=== PATIENT | male | born 1970 | race Caucasian/White ===

== ENCOUNTER 2021-03-29 14:16 | Outpatient (CLI) | payer BC, SELFPAY ==
--- NOTE | ~2021-03-29 | XR_ITS ---
EXAMINATION: XR toe 1st LT min 2V INDICATION: Left first toe pain TECHNIQUE: Four views of the left first toe are obtained. COMPARISON: None available FINDINGS: There is no fracture. There is moderate to severe osteoarthritis at the first metatarsophal angeal joint. The soft tissues are unremarkable. IMPRESSION: 1. Osteoarthritis of the first metatarsophalangeal joint without acute osseous abnormality. Reviewed, dictated and finalized at location F. END CAREGIVER
== END 2021-03-29 14:17 | disposition home or self-care (01) ==
PROVIDERS: PCP Family Medicine; Visit Provider Family Medicine
DX: M19.072 Primary osteoarthritis, left ankle and foot (principal)
CPT/HCPCS: 73660

== ENCOUNTER 2021-07-23 08:24 | Emergency (ER) | payer BC, SELFPAY ==
--- NOTE | 2021-07-23 08:26 | ED.URI ---
HPI - URI/Sore Throat General Chief Complaint: Upper Respiratory Infection Stated Complaint: eyes burn nose itchy fatigue sore throat Time Seen by Provider: 07/23/21 08:26 Source: patient and RN notes reviewed History of Present Illness HPI Narrative: Patient is a 51-year-old male who presents the urgent care with complaints of burning eyes, runny nose, postnasal drainage for 1 week. Patient states that for a month he has had some fatigue. Patient does not have a primary care doctor and has not seen anyone for his chronic fatigue. Patient states that he used to take allergy shots for chronic allergies however has not been on them for some time. Patient has also not taken anything [id number] for his current symptoms. Denies of any fever, nausea, vomiting. Denies of any known exposures to illness. No other acute complaints. No acute distress noted. Patient aware of the plan of care. Some parts of this dictation were generated by voice recognition software and may contain typographical and/or grammatical inaccuracies. Related Data Home Medications Medication Instructions Recorded Confirmed atorvastatin 10 mg PO DAILY 07/23/21 07/23/21 bupropion HCl 150 mg PO BID 07/23/21 07/23/21 Allergies Allergy/AdvReac Type Severity Reaction Status Date / Time No Known Allergies Allergy Verified 07/23/21 08:37 Review of Systems Review of Systems: CONSTITUTIONAL: Denies fever, chills, or sweats. EYES: Denies visual changes, redness, or discharge. Reports of bilateral eyes burning ENT: Reports of rhinorrhea, postnasal drainage with mild sore throat CARDIOVASCULAR: Denies chest pain, palpitations, or edema. RESPIRATORY: Denies cough or dyspnea. GASTROINTESTINAL: Denies abdominal pain, nausea, vomiting, or diarrhea. GENITOURINARY: Denies dysuria or hematuria. SKIN: Denies rash or itching. MUSCULOSKELETAL: Denies back pain, joint pain, or myalgia. NEUROLOGIC: Denies headache, numbness, or weakness. All other systems reviewed are negative, except as documented in HPI. PMFSH Comments At the time of my signature, I reviewed and agree with the nursing past medical, surgical, social, and family history. There is no relevant family history pertinent to the patient complaint. Exam Narrative: GENERAL: This is a well-nourished, well-developed patient, in no apparent distress. HEAD: normocephalic, atraumatic. EYES: PERRL. Sclera clear/white. Vision is grossly intact. EARS: External ears normal, auditory canals clear and without drainage, TMs normal without perforation. Hearing grossly intact. NOSE: External nose normal with no obvious nasal discharge, mild bilateral erythemic nares with clear to yellow rhinorrhea THROAT: Mucous membranes moist, posterior pharynx clear. Moderate postnasal drainage NECK: Neck supple, non-tender without lymphadenopathy CARDIOVASCULAR: Regular rate and rhythm without murmurs, gallops, or rubs. RESPIRATORY: Clear to auscultation. Breath sounds equal bilaterally. No wheezes, rales, or rhonchi. SKIN: warm, intact with no suspicious lesions or rash, good texture and turgor. NEURO: awake, alert, and oriented to person, place and time. There were no obvious focal neurologic abnormalities. EXTREMITIES: No clubbing, cyanosis, or edema. Course Course Level of Care: Express Care Visit Vital Signs Vital signs: Vital Signs Temperature 98.3 F 07/23/21 08:34 Pulse Rate 61 07/23/21 08:34 Respiratory Rate 16 07/23/21 08:34 Blood Pressure 141/87 H 07/23/21 08:34 Pulse Oximetry 100 07/23/21 08:34 Temperature 98.3 F 07/23/21 08:34 Pulse Rate 61 07/23/21 08:34 Respiratory Rate 16 07/23/21 08:34 Blood Pressure 141/87 H 07/23/21 08:34 Pulse Oximetry 100 07/23/21 08:34 Reviewed-patient is informed that they may have pre-hypertension or hypertension based on a blood pressure reading in the department. I recommend the patient call the primary care provider listed on their discharge instructio
[2021-07-23 08:34] VITALS: BP 141/87; PULSE 61; RESP 16; TEMP 36.8; O2SAT 100
== END 2021-07-23 08:58 | disposition home or self-care (01) ==
PROVIDERS: Emergency Provider Nurse Practitioner Family; PCP Family Medicine
DX: J32.9 Chronic sinusitis, unspecified (principal); J30.89 Other allergic rhinitis; E78.00 Pure hypercholesterolemia, unspecified; F32.A Depression, unspecified
CPT/HCPCS: 99213; G0463

== ENCOUNTER → 2022-02-25 10:43 | Outpatient (CLI) | payer BC, SELFPAY ==
--- NOTE | ~2022-02-25 | XR_ITS ---
XR foot LT min 3V DATE: 02/25/2022 11:18 INDICATION: Right foot pain TECHNIQUE: 4 views COMPARISON: None FINDINGS: Distal Achilles tendon calcification and mild posterior calcaneal enthesopathy. Prominent osteoarthritis at the first metatarsophalangeal joint. Os tibiale externum, normal variant. No fracture, dislocation, periosteal reaction or bone destruction is detected. IMPRESSION: Prominent osteoarthritis at first metatarsophalangeal joint Mild posterior plantar calcaneal enthesopathy and distal Achilles tendon calcification Reviewed, dictated and finalized at location B. TIONAL TRAINER IMPRESSION: Prominent osteoarthritis at first metatarsophalangeal joint Mild posterior plantar calcaneal enthesopathy and distal Achilles tendon calcif ication
--- NOTE | ~2022-02-25 | XR_ITS ---
XR finger 3rd LT min 2V DATE: 02/25/2022 11:18 INDICATION: Third digit pain TECHNIQUE: 4 views COMPARISON: None FINDINGS: Chronic smooth bony ossicles are noted at the lateral aspect of the head of the third metac arpal bone and lateral margin of the third metacarpophalangeal joint. No recent fracture, dislocation , periosteal reaction or bone destruction. IMPRESSION: Chronic bony ossicles and lateral aspect of the third metacarpal head and lateral margin of third metacarpophalangeal joint Reviewed, dictated and finalized at location B. OR CHAPERONE IMPRESSION: Chronic bony ossicles and lateral aspect of the third metacarpal he ad and lateral margin of third metacarpophalangeal joint
--- NOTE | ~2022-02-25 | XR_ITS ---
XR foot RT min 3V DATE: 02/25/2022 11:18 INDICATION: Right foot pain TECHNIQUE: 4 views COMPARISON: None FINDINGS: Mild tibiotalar osteoarthritis. Mild posterior calcaneal enthesopathy and distal Achilles tendon calcification. There is moderate ost eophyte is at the first metatarsophalangeal joint including joint space narrowing and mild to moderat e periarticular spurring. Os tibiale externum, normal variant. No fracture or dislocation, periosteal reaction or bone destruction is detected. IMPRESSION: Osteoarthritis at tibiotalar and first metatarsophalangeal joints Mild posterior calcaneal enthesopathy and distal Achilles tendon calcification Reviewed, dictated and finalized at location B. DESIGNER
--- NOTE | ~2022-02-25 | XR_ITS ---
XR knee RT 3V DATE: 02/25/2022 11:18 INDICATION: Right knee pain TECHNIQUE: AP, lateral, sunrise views of right knee COMPARISON: None FINDINGS: Mild superior pole patellar enthesopathy at quadriceps tendon insertion. No fracture or dislocation, joint effusion or joint space narrowing of the right knee. No radiopaque intra-articular loose body or chondrocalcinosis. IMPRESSION: No significant abnormality Reviewed, dictated and finalized at location B. OTYPE MACHINIST IMPRESSION: No significant abnormality
--- NOTE | ~2022-02-25 | XR_ITS ---
XR shoulder RT min 2V DATE: 02/25/2022 11:18 INDICATION: Right shoulder pain TECHNIQUE: 4 views COMPARISON: None FINDINGS: Normal alignment at the acromioclavicular and glenohumeral joints. No fracture or dislocati on, periosteal reaction or bone destruction or significant abnormal soft tissue calcification of the right shoulder is detected. IMPRESSION: No significant abnormality Reviewed, dictated and finalized at location B. W HAT WASHER OPERATOR IMPRESSION: No significant abnormality
== END ==
PROVIDERS: PCP Nurse Practitioner; Visit Provider Nurse Practitioner
DX: M25.561 Pain in right knee (principal); M79.645 Pain in left finger(s); M25.511 Pain in right shoulder; M19.071 Primary osteoarthritis, right ankle and foot; M77.31 Calcaneal spur, right foot; M19.072 Primary osteoarthritis, left ankle and foot; M77.32 Calcaneal spur, left foot
CPT/HCPCS: 73030; 73140; 73562; 73630

== ENCOUNTER 2022-08-08 08:45 | Emergency (ER) | payer BC, SELFPAY ==
--- NOTE | ~2022-08-08 | XR_ITS ---
EXAMINATION: XR hand LT min 3V DATE: 08/08/2022 09:16 INDICATION: Laceration to the left fourth and fifth digits TECHNIQUE: Posteroanterior, oblique and lateral views of the left hand were obtained. COMPARISON: None. FINDINGS: There is a deep laceration at the dorsal aspect of the tip of the left fourth digit. The lucency in t he soft tissue extends along an associated open fracture across the distal margin of the tuft of the distal phalanx with approximately 2.5 mm separation of the fracture plane. Bone alignment is otherwis e normal. No other fractures identified. Joint spaces are relatively preserved. IMPRESSION: 1. Laceration with associated mildly displaced open/compound fracture across the distal margin of the tuft of the left fourth distal phalanx. Reviewed, dictated and finalized at location A. IMPRESSION: 1. Laceration with associated mildly displaced open/compound fracture across th e distal margin of the tuft of the left fourth distal phalanx.
[2022-08-08 09:00] VITALS: BP 173/98; PULSE 55; RESP 20; TEMP 36.6; O2SAT 100
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
[2022-08-08] MEDS: TETANUS,DIPHTHERIA,AC PERTUSSIS ADULT (0.5 ML) BOOSTRIX IM (09:30)
[2022-08-08] MEDS: LIDOCAINE HCL 1% LOCAL INJ 2 ML AMPUL 10 ML INFILTRATE (09:34)
== END 2022-08-08 10:37 | disposition home or self-care (01) ==
PROVIDERS: Emergency Provider Nurse Practitioner Family; PCP Family Medicine
DX: S62.615B Displaced fracture of proximal phalanx of left ring finger, initial encounter for open fracture (principal); W23.0XXA Caught, crushed, jammed, or pinched between moving objects, initial encounter; S61.217A Laceration without foreign body of left little finger without damage to nail, initial encounter; Z23 Encounter for immunization; Z87.891 Personal history of nicotine dependence; E78.2 Mixed hyperlipidemia; Z79.82 Long term (current) use of aspirin
CPT/HCPCS: 12001; 29130; 73130; 90471; 90715; 99214; A9270; G0463

== ENCOUNTER → 2023-02-03 15:23 | Outpatient (CLI) | payer BC, SELFPAY ==
--- NOTE | ~2023-02-03 | XR_ITS ---
Right Shoulder Technique: AP and axillary views were obtained. Clinical History: Pain Findings: No fracture or dislocation is seen. Osseous alignment is anatomic. There is minimal degener ative change of the glenohumeral and AC joints. Soft tissues are unremarkable. Impression: Minimal degenerative changes, as above. Reviewed, dictated and finalized at [facility]. RUMENT STERILIZER Impression: Minimal degenerative changes, as above.
--- NOTE | ~2023-02-03 | XR_ITS ---
Cervical Spine: AP, lateral, open-mouth views Clinical History: Pain Findings: The normal lordotic curve is maintained. No fracture or subluxation seen. There are mild de generative disc changes, and mild facet joint degenerative changes in the cervical spine. Pre-vertebr al soft tissues are unremarkable. Impression: Mild degenerative spondylosis. Reviewed, dictated and finalized at [facility]. NO CASHIER MANAGER Impression: Mild degenerative spondylosis.
== END ==
PROVIDERS: PCP Family Medicine; Visit Provider Nurse Practitioner
DX: M25.511 Pain in right shoulder (principal); M47.892 Other spondylosis, cervical region
CPT/HCPCS: 72040; 73030

== ENCOUNTER 2023-02-13 13:59 | Emergency (ER) | payer BC, SELFPAY ==
[2023-02-13 14:25] VITALS: BP 140/87; PULSE 68; RESP 18; TEMP 36.5; O2SAT 100
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
[2023-02-13 16:58] VITALS: BP 126/78; PULSE 68; RESP 16; TEMP 36.8; O2SAT 100
== END 2023-02-13 17:01 | disposition home or self-care (01) ==
LOC: ANHED 16:35
PROVIDERS: Emergency Provider Physician Assistant; PCP Family Medicine
DX: S81.811A Laceration without foreign body, right lower leg, initial encounter (principal); E78.2 Mixed hyperlipidemia; E66.3 Overweight; Z68.27 Body mass index [BMI] 27.0-27.9, adult; F43.10 Post-traumatic stress disorder, unspecified; Z87.891 Personal history of nicotine dependence; W22.8XXA Striking against or struck by other objects, initial encounter
CPT/HCPCS: 12042; 99282

== ENCOUNTER 2023-03-04 14:45 | Outpatient (RCR) | payer BC, SELFPAY ==
--- NOTE | 2023-02-11 14:33 | PTOPEVAL1 ---
Assessment and note entered by Joseph Dsouza, PT Evaluation Information Assessment Status Evaluation Diagnosis Cervicalgia, Shoulder Pain Onset 01/20/23 Subjective Information Reports that he woke up with pain three weeks ago for unknown reasons. Pain is in R side of neck, into R ribs, and down R arm into elbow. He is having the most trouble when sleeping or when she stops moving. He is active with running and working out but he has not been lifting. Movement in his neck is sporadic. Feels that a lot of his issues may be compressive related to muscle lifting activity. Reported Pain Level Pain Score 6: Self Report Assessment PT Clinical Summary Patient presents with sings and symptoms consistent with cervical and shoulder muscular strain. Minor weakness noted in R shoulder and ROM deficits globally in cervical spine. Had a very positive reaction to initial treatment and will benefit from skilled therapy moving forward to improve gross cervical mobility and postural reinforcement. Plan of Care Interventions Electrical Stimulation,Hot Pack/Cold Pack,Manual Therapy,Neuro Re-education,Therapeutic Activities, Therapeutic Exercise PT Services Indicated Yes Treatment Frequency and 2x/week for 4 weeks Duration These treatments will address the objective and functional deficits as defined above. The patient will be advanced safely and appropriately in order for the patient to progress towards his/her prior level of function. Additional exercises will be introduced and as well as a comprehensive home exercise program upon discharge, if needed, ?to ensure carryover of functional gains achieved in the clinic. This treatment plan has been reviewed and agreement upon by the patient.
--- NOTE | 2023-02-11 16:10 | OPREHPOC ---
Outpatient Therapy Plan of Care This is a Multidisciplinary Plan of Care that may contain components documented by all disciplines (PT, OT, and ST.) PT Problem 1 PT Problem #1 Knowledge Deficit PT Goal 1 Goal Independent with HEP Target Visit 4 PT Problem 2 PT Problem #2 Pain PT Goal 1 Goal Report 75% improvement in pain levels and quality of sleep Target Visit 8 PT Problem 3 PT Problem #3 Impaired Range of Motion PT Goal 1 Goal Improve rashad cervical rotation ROM to 70+ degrees to improve facet glide and indicate reduced muscle pull PT Problem 4 PT Problem #4 Impaired Strength PT Goal 1 Goal Improve R shoulder flexion strength to 5/5 to improve shoulder stability and reduce strain on R upper trapezius with lifting activity
--- NOTE | 2023-03-06 08:01 | PCPTNOTE ---
Patient canceled this date per request.
--- NOTE | 2023-03-07 09:47 | PCPTNOTE ---
Patient did not show up for scheduled appointment this date.
--- NOTE | 2023-03-11 12:59 | PTOPDC ---
Assessment and note entered by Joseph Dsouza, PT Evaluation Information Assessment Status Discharge - Pt Not Present Diagnosis Cervicalgia, Shoulder Pain Onset 01/20/23 Subjective Information Reports that he woke up with pain three weeks ago for unknown reasons. Pain is in R side of neck, into R ribs, and down R arm into elbow. He is having the most trouble when sleeping or when she stops moving. He is active with running and working out but he has not been lifting. Movement in his neck is sporadic. Feels that a lot of his issues may be compressive related to muscle lifting activity. Assessment PT Clinical Summary Patient called and left voicemail to cancel all standing appointments. Call was returned on with no response from a patient. Patient therapy will be discontinued at this time and patient is discharged. Please see last treatment note for discharge status. Plan of Care PT Services Indicated D/C to [facility] per patient request
== END 2023-03-11 13:20 | disposition home or self-care (01) ==
LOC: ANHGOSHPT 14:45
PROVIDERS: PCP Family Medicine; Visit Provider Nurse Practitioner
DX: M54.2 Cervicalgia (principal); M25.519 Pain in unspecified shoulder
CPT/HCPCS: 97014; 97110; 97112; 97140; 97161; 97530; 99199; G0283

== ENCOUNTER 2023-07-17 14:49 | Outpatient (CLI) | payer BC, SELFPAY ==
--- NOTE | ~2023-07-17 | XR_ITS ---
EXAM: XR shoulder LT min 2V, XR humerus LT DATE: 07/17/2023 15:13 HISTORY: M25.512 - Pain in left shoulder . COMPARISON: None available. FINDINGS: Normal mineralization. No fracture or dislocation. No lytic or blastic lesion. 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 No erosion or periosteal change. Soft tissues wi thin normal limits. IMPRESSION: No acute osseous finding in the left shoulder or left humerus. Reviewed, dictated and finalized at location K. IMPRESSION: No acute osseous finding in the left shoulder or left humerus.
== END 2023-07-17 14:50 ==
PROVIDERS: PCP Nurse Practitioner Family; Visit Provider Family Medicine
DX: S46.212A Strain of muscle, fascia and tendon of other parts of biceps, left arm, initial encounter (principal); M25.512 Pain in left shoulder
CPT/HCPCS: 73030; 73060

== ENCOUNTER 2023-10-28 13:42 | Outpatient (CLI) | payer BC, SELFPAY ==
--- NOTE | ~2023-10-28 | XR_ITS ---
XR hand RT min 3V Ordering provider: Pinky Zhu DO History: . no recent injury bilateral hand pain . Comparison: None. FINDINGS: BONES: No acute fracture or dislocation. JOINT SPACES: Normal. SOFT TISSUES: Normal. IMPRESSION: No acute osseous abnormality right hand. Reviewed, dictated and finalized at location A.
--- NOTE | ~2023-10-28 | XR_ITS ---
XR hand LT min 3V Ordering provider: Pinky Zhu DO History: . no recent injury bilateral hand pain . Comparison: August 08, 2022 FINDINGS: BONES: Bony fragment seen near to the tip of the distal phalanx of the fourth finger which is nonfuse d. JOINT SPACES: Well maintained. SOFT TISSUES: Unremarkable. IMPRESSION: Nonfused bony fragment near to the tip of the distal phalanx of the fourth finger. Reviewed, dictated and finalized at location A. IMPRESSION: Nonfused bony fragment near to the tip of the distal phalanx of the fourth fing er.
== END 2023-10-28 13:43 ==
PROVIDERS: PCP Family Medicine; Visit Provider Family Medicine
DX: M79.641 Pain in right hand (principal); M79.642 Pain in left hand
CPT/HCPCS: 73130

== ENCOUNTER 2023-11-05 08:44 | Outpatient (CLI) | payer BC, SELFPAY ==
--- NOTE | ~2023-11-05 | CT_ITS ---
Non-contrast Head CT History: Headache Technique: Axial non-contrast imaging of the brain was performed. Dose reduction technique was used on this scan by utilizing automated exposure control and iterative reconstruction technique. The dose -length product (DLP) was 645.69 mGy-cm. Findings: There is no evidence of intracranial hemorrhage, mass lesion, or acute infarct. Brain par enchyma appears normal. The ventricles and subarachnoid spaces are normal in size. The calvarium ap pears normal. The visualized paranasal sinuses and mastoid air cells are clear. Impression: No significant abnormality seen. Reviewed, dictated and finalized at location . Impression: No significant abnormality seen.
== END 2023-11-05 08:45 ==
PROVIDERS: PCP Family Medicine; Visit Provider Nurse Practitioner
DX: G43.909 Migraine, unspecified, not intractable, without status migrainosus (principal)
CPT/HCPCS: 70450

== ENCOUNTER 2023-11-25 01:51 | Day surgery (SDC) | payer BC, SELFPAY ==
[2023-11-17 09:55] VITALS: BMI 26.7
[2023-11-25 12:56] VITALS: BP 135/97; PULSE 83; RESP 18; TEMP 36.1; O2SAT 96
[2023-11-25] MEDS: LACTATED RINGERS 1,000 ML 150 ML IV CONT (12:58)
--- NOTE | 2023-11-25 13:14 | WPDANESEPPF ---
Anes - Initial Pre Proc Eval Procedure: Operation Date: 11/25/23 15:30 Proposed Procedures p Colonoscopy - Gurdeep Sanchez MD Date/Time: 11/25/23 13:14 Surgeon: Gurdeep Sanchez MD Pre Op Diagnosis: Melena Patient Data Age: 53 Gender: M Height: 1.65 m Weight: 72.6 kg Last Vital Signs Temp 97.0 F L 11/25/23 12:56 Pulse 83 11/25/23 12:56 Resp 18 11/25/23 12:56 BP 135/97 H 11/25/23 12:56 Pulse Ox 96 11/25/23 12:56 O2 Del Method Room Air 11/25/23 12:56 Allergies Allergy/AdvReac Type Severity Reaction Status Date / Time No Known Allergies Allergy Verified 11/25/23 12:53 Home Medications Medication Instructions Recorded Confirmed Type meloxicam 15 mg tablet 15 mg PO DAILY 11/15/22 11/25/23 History sildenafil 100 mg tablet 100 mg PO DAILY PRN sexual 02/04/23 11/25/23 Rx activity #60 tabs atorvastatin 10 mg tablet See Rx Instructions .Route 06/10/23 11/25/23 Rx .COMPLEX #90 tabs bupropion HCl 150 mg 24 hr tablet, See Rx Instructions .Route 07/07/23 11/25/23 Rx extended release .COMPLEX #90 tabs Patient hx anesthesia problems: none Family hx anesthesia problems: none Results Review: All pre-operative results and documents have been reviewed as part of the pre-operative evaluation. [facility] Past Medical History Medical History Biceps tendonitis on right Depression Elevated blood pressure reading in office without diagnosis of hypertension Elevated liver enzymes Foot pain, bilateral Lesion of penis meterman use of drug Mixed hyperlipidemia Overweight Pain of left great toe Right knee pain Right shoulder pain Rotator cuff tendonitis Screening for prostate cancer Family History Family History Father Diabetes mellitus Hypertension Family history of elevated blood lipids Acute myocardial infarction, Onset Age: 56 Family history of coronary artery disease Mother Hypertension Family history of elevated blood lipids Grandparent Acute myocardial infarction Family history of coronary artery disease Social History Social History Smoking packs per day: 0.5 Smoking cigarettes per day: 10.0 Years smoked: 20 Smoking pack-years: 10.00 Smoking status: Former smoker Tobacco type: cigarettes Alcohol intake: current Drinks per week: 1 Alcohol use details: 1 drink per week pt. decreased intake. Substance use: current Substance use type: marijuana Other substance usage details: medical card for PTSD Lack of Transportation: No Lack of Food: Never True Current Housing: I Have Housing Concerned About Future Housing: No Difficulty Paying Gas/Electric Bills: No Difficulty Paying for Meds: No Currently Unemployed: No Education: High School Diploma/GED Difficulty w/ Childcare or Family Care: No Spiritual care concerns: No Anes - Eval Final PreProcedure Day of Procedure 11/25/23 13:14 Patient weight: normal Heart: regular rate and rhythm Lungs: clear to auscultation Airway: Mallampati scale class II Neurological: alert and oriented Last oral intake: >/= 8 hours ASA classification: II Emergent: no Anesthetic plan: proceed Anesthesia type and monitoring: general GIVS and standard monitoring Results Review: All pre-operative results and documents have been reviewed as part of the pre-operative evaluation. Informed Consent: The patient's anesthetic plan and its attendant risks and benefits were discussed with the patient/family/POA. Questions were solicited and answers provided to the satisfaction of the patient/family/POA.
--- NOTE | 2023-11-25 13:34 | PM.HPGS ---
History of Present Illness History of Present Illness Consent: Risks, benefits, and alternatives have been discussed and questions answered. Patient agrees to proceed with procedure. Chief complaint: colon screen Narrative: Joaquin Borrero is a 53 year old male here for first screening colonoscopy Review of Systems Review of Systems: All systems reviewed & are unremarkable except as noted in HPI and below [facility] Past Medical History Medical History (Updated 11/25/23 @ 13:38 by Gurdeep Sanchez MD) Biceps tendonitis on right Colon cancer screening Depression Elevated blood pressure reading in office without diagnosis of hypertension Elevated liver enzymes Foot pain, bilateral Lesion of penis [employer] of [employer] use of drug Mixed hyperlipidemia Overweight Pain of left great toe Right knee pain Right shoulder pain Rotator cuff tendonitis Screening for prostate cancer Family History Family History Father Diabetes mellitus Hypertension Family history of elevated blood lipids Acute myocardial infarction, Onset Age: 56 Family history of coronary artery disease Mother Hypertension Family history of elevated blood lipids Grandparent Acute myocardial infarction Family history of coronary artery disease Social History Social History Smoking packs per day: 0.5 Smoking cigarettes per day: 10.0 Years smoked: 20 Smoking pack-years: 10.00 Smoking status: Former smoker Tobacco type: cigarettes Alcohol intake: current Drinks per week: 1 Alcohol use details: 1 drink per week pt. decreased intake. Substance use: current Substance use type: marijuana Other substance usage details: medical card for PTSD Lack of Transportation: No Lack of Food: Never True Current Housing: I Have Housing Concerned About Future Housing: No Difficulty Paying Gas/Electric Bills: No Difficulty Paying for Meds: No Currently Unemployed: No Education: High School Diploma/GED Difficulty w/ Childcare or Family Care: No Spiritual care concerns: No Meds Home Medications and Allergies Home Medications Medication Instructions Recorded Confirmed Type meloxicam 15 mg tablet 15 mg PO DAILY 11/15/22 11/25/23 History sildenafil 100 mg tablet 100 mg PO DAILY PRN sexual 02/04/23 11/25/23 Rx activity #60 tabs atorvastatin 10 mg tablet See Rx Instructions .Route 06/10/23 11/25/23 Rx .COMPLEX #90 tabs bupropion HCl 150 mg 24 hr tablet, See Rx Instructions .Route 07/07/23 11/25/23 Rx extended release .COMPLEX #90 tabs Allergies Allergy/AdvReac Type Severity Reaction Status Date / Time No Known Allergies Allergy Verified 11/25/23 12:53 Vital Signs Vital Signs - 24 hr 11/25/23 12:56 Temperature 97.0 F L Pulse Rate 83 Respiratory Rate 18 Blood Pressure 135/97 H Pulse Oximetry 96 Oxygen Delivery Room Air Exam Const: General: comfortable and no acute distress HENMT: Face/Nose/Sinus: Normal nares present Eyes: General: appearance normal, both eyes and all related structures Neck: Neck: no JVD Resp: Auscultation: clear to auscultation bilaterally Cardio: Rate: regular rate Rhythm: regular rhythm GI: Inspection: non-distended GI Palp: Yes Soft to palpation Skin: General skin exam: normal color Neuro: General: gait normal Speech: normal speech Extrem: General: normal to inspection Psych: Mental Status: mental status grossly normal Assessment and Plan Assessment and plan (1) Colon cancer screening: Code(s): Z12.11 - Encounter for screening for malignant neoplasm of colon Status: Acute Assessment and Plan: colonoscopy
[2023-11-25 13:53] VITALS: BP 104/66; PULSE 76; RESP 20; O2SAT 95
[2023-11-25 14:03] VITALS: BP 111/77; PULSE 68; RESP 17; O2SAT 94
[2023-11-25 14:13] VITALS: BP 114/79; PULSE 69; RESP 22; O2SAT 99
== END 2023-11-25 14:31 | disposition home or self-care (01) ==
PROVIDERS: PCP Family Medicine; Visit Provider Internal Medicine Gastroenterology
PROC: 0DJD8ZZ Inspection of Lower Intestinal Tract, Via Natural or Artificial Opening Endoscopic (ICD-10-PCS; CPT 45378; principal; 2023-11-25 15:30)
DX: Z12.11 Encounter for screening for malignant neoplasm of colon (principal); K64.8 Other hemorrhoids; K57.30 Diverticulosis of large intestine without perforation or abscess without bleeding; E78.2 Mixed hyperlipidemia; Z87.891 Personal history of nicotine dependence
CPT/HCPCS: 45378; J2001; J2704; J7120

== ENCOUNTER 2024-02-12 13:35 | Outpatient (CLI) | payer BC, SELFPAY ==
--- NOTE | ~2024-02-12 | XR_ITS ---
Right ankle Technique: AP, oblique, and lateral views were obtained. Clinical History: Pain Findings: No acute fracture or dislocation is seen. Osseous alignment is anatomic. Ankle mortise and other visualized joint spaces are preserved. Soft tissues are otherwise unremarkable. Impression: Unremarkable right ankle. Reviewed, dictated and finalized at location . TMENT COUNSELOR Impression: Unremarkable right ankle.
--- NOTE | ~2024-02-12 | XR_ITS ---
AP and lateral views of the right tibia/fibula Clinical History: Pain Findings: No acute fracture or dislocation is seen. Osseous alignment is anatomic. Joint spaces are p reserved without significant erosive or degenerative change. Soft tissues are unremarkable. Impression: Unremarkable right tib-fib radiographs. Reviewed, dictated and finalized at [facility]. T CLERK Impression: Unremarkable right tib-fib radiographs.
--- NOTE | ~2024-02-12 | XR_ITS ---
Right Knee Technique: AP, lateral, and sunrise views were obtained. Clinical History: Pain Findings: No fracture or dislocation is seen. Osseous alignment is anatomic. Joint spaces are preserv ed without degenerative or erosive change. Soft tissues are unremarkable. No joint effusion is seen. Impression: Unremarkable right knee radiographs. Reviewed, dictated and finalized at location . CLEANER Impression: Unremarkable right knee radiographs.
--- NOTE | ~2024-02-12 | US_ITS ---
EXAMINATION: US venous doppler LE RT DATE: 02/12/2024 14:05 INDICATION: One week of right lower limb pain and tingling TECHNIQUE: Grayscale ultrasound images without and with compression and Doppler ultrasound images of the right lower extremity veins were obtained. COMPARISON: None. FINDINGS: The visualized portions of right common femoral vein, profunda (deep) femoral vein, femoral vein, pop liteal vein, peroneal trunk, posterior tibial veins, peroneal veins, gastrocnemius vein and greater s aphenous vein outflow are patent. Incidentally noted is a central filling defect in significant decre ased flow in the distal right popliteal artery suspicious for thrombus. There is decreased vascular f low on color Doppler in the more distal right peroneal, dorsalis pedis and posterior tibial arteries, the latter with very slow aphasic flow. IMPRESSION: 1. No deep venous thrombosis in the right lower limb. 2. Likely thrombosis in the distal right popliteal artery with decreased arterial flow in the more di stal arteries of the right lower leg. Dr. Mabry discussed these findings with Dr. Zhu at 2:25 PM. Reviewed, dictated and finalized at location B. MATIC OUTSOLE CUTTER IMPRESSION: 1. No deep venous thrombosis in the right lower limb. 2. Likely thrombosis in the distal right popliteal artery with decreased arteri al flow in the more distal arteries of the right lower leg. Dr. Mabry discus sed these findings with Dr. Zhu at 2:25 PM.
== END 2024-02-12 13:36 | disposition home or self-care (01) ==
PROVIDERS: PCP Family Medicine; Visit Provider Family Medicine
DX: M79.89 Other specified soft tissue disorders (principal)
CPT/HCPCS: 73564; 73590; 73610; 93971

== ENCOUNTER 2024-03-29 08:17 | Emergency (ER) | payer BC, OTHER, SELFPAY ==
[2024-03-29 08:45] VITALS: BP 165/110; PULSE 60; RESP 16; TEMP 36.9; O2SAT 100
--- NOTE | 2024-03-29 19:43 | ED.EXTPRO ---
HPI - Extremity Problem General Chief complaint: Extremity Problem,Nontraumatic Stated complaint: Right Leg Pain Time Seen by Provider: 03/29/24 09:03 Source: patient and RN notes reviewed Mode of arrival: ambulatory Limitations: no limitations History of Present Illness HPI Narrative: Patient presents today complaining of pain to the right leg that starts in the buttock and extends to the calf, concerned for DVT. Symptoms began this morning. He currently rates his pain 7/10 with increased pain with walking or sitting. Patient was diagnosed with a popliteal thrombosis last month and had surgery at [facility] and was subsequently placed on Eliquis. He states he ran out of his Eliquis 4 days ago and has been in contact with his PCP for refill but has not taken any since he ran out. He has tried lidocaine patch, aTens unit, and massage gun for his pain without relief. Patient is requesting that we call his PCP to see with a would like him do for evaluation today. Related Data Home Medications ?Medication ?Instructions ?Recorded ?Confirmed ?Last Taken ?Type celecoxib 400 mg capsule (Celebrex) 400 mg PO DAILY 03/29/24 03/29/24 Unknown History Allergies Allergy/AdvReac Type Severity Reaction Status Date / Time No Known Allergies Allergy Verified 03/29/24 08:37 Review of Systems Review of Systems: CONSTITUTIONAL: Denies body aches, fever, chills, or sweats. EYES: Denies visual changes, redness, or discharge. ENT: Denies rhinorrhea, congestion, sore throat, or otalgia. CARDIOVASCULAR: Denies chest pain, palpitations, or edema. RESPIRATORY: Denies cough or dyspnea. GASTROINTESTINAL: Denies abdominal pain, nausea, vomiting, or diarrhea. GENITOURINARY: Denies dysuria or hematuria. SKIN: Denies rash, itching, or wounds. MUSCULOSKELETAL: Right leg pain NEUROLOGIC: Denies headache, numbness, tingling, or weakness. PSYCH: Denies depression or anxiety. [facility] Past Medical History Medical History Colon cancer screening Rotator cuff tendonitis Biceps tendonitis on right Right shoulder pain Right knee pain Foot pain, bilateral Elevated blood pressure reading in office without diagnosis of hypertension Screening for prostate cancer Pain of left great toe Depression [facility] use of drug Lesion of penis Elevated liver enzymes Mixed hyperlipidemia Overweight Family History Family History Father Diabetes mellitus Hypertension Family history of elevated blood lipids Acute myocardial infarction, Onset Age: 56 Family history of coronary artery disease Mother Hypertension Family history of elevated blood lipids Grandparent Acute myocardial infarction Family history of coronary artery disease Social History Social History Smoking packs per day: 0.5 Smoking cigarettes per day: 10.0 Years smoked: 20 Smoking pack-years: 10.00 Smoking status: Former smoker Tobacco type: cigarettes Alcohol intake: current Drinks per week: 1 Alcohol use details: 1 drink per week pt. decreased intake. Substance use: current Substance use type: marijuana Other substance usage details: medical card for PTSD Lack of Transportation: No Lack of Food: Never True Current Housing: I Have Housing Concerned About Future Housing: No Difficulty Paying Gas/Electric Bills: No Difficulty Paying for Meds: No Currently Unemployed: No Education: High School Diploma/GED Difficulty w/ Childcare or Family Care: No Spiritual care concerns: No Comments At time of signature, I have reviewed and agree with nursing past medical, surgical, social and family history unless otherwise noted. Please see nursing chart for further information. There is no relevant family history pertinent to the presenting complaint Exam Narrative: GENERAL: Well-appearing, well-nourished, and in no acute distress. HEAD: Normocephalic, atraumatic. EYES: EOMI. No redness or drainage. Conjunctivae normal. ENT: Mucous membranes pink and moist. NECK: Normal AROM. CHEST: No respiratory distress. EXTREMITIES: Right leg: Tenderness to the calf. Mild edema to the leg-patient states is baseline after surgery. Surgical scar to the medial leg that seems be healing well. Lateral portion of the leg is numb, but patient states this is baseline for him after surgery. Pedal pulse 1/5. Distal sensation intact. Capillary refill normal. Full range of motion toes and ankle. No color change in the leg noted. SKIN: Warm, dry, no rash. Capillary refill normal. Normal skin turgor. NEURO: No focal deficits. Alert and oriented x3. Gait steady. PSYCH: Normal affect. No signs of depression or anxiety. Course Course Emergency Course: 916- Patient's PCP office was called and exam and hx relayed. Reported that PCP has sent in new rx for Eliquis 2 days ago. (Patient then states he knew this, but has not yet picked it up from the pharmacy). She would like patient to go to the ED for further evaluation. Patient will be transferred to [facility] as this is where he had his surgery done. Level of Care: Express Care Visit Vital Signs Vital signs: Vital Signs Temperature 98.5 F 03/29/24 08:45 Pulse Rate 60 03/29/24 08:45 Respiratory Rate 16 03/29/24 08:45 Blood Pressure 165/110 H 03/29/24 08:45 Pulse Oximetry 100 03/29/24 08:45 Oxygen Delivery Room Air 03/29/24 08:45 Temperature 98.5 F 03/29/24 08:45 Pulse Rate 60 03/29/24 08:45 Respiratory Rate 16 03/29/24 08:45 Blood Pressure 165/110 H 03/29/24 08:45 Pulse Oximetry 100 03/29/24 08:45 Oxygen Delivery Room Air 03/29/24 08:45 Reviewed Transfer Transfered to: [facility] Transportation: Other (Private vehicle) Transfer rationale: Right leg pain, not taking anticoagulant, decreased pulse Accepting physician: Latoya Garcia comments: Report given to Asya FORRESTER MDM - Extremity (Nontraumatic) MDM Narrative Medical decision making narrative: Patient was transferred to the ER at [facility] for further evaluation of his leg. Differential Diagnosis Differential diagnosis: Likely cellulitis, deep vein thrombosis of lower extremity and other (sciatica) Critical Care Time Critical Care Time Critical Care Time: No Discharge Plan Discharge Clinical Impression: Leg pain, right Patient Disposition: Acute Care Hospital Condition: Stable Patient Language: Turkmen Prescriptions: No Action celecoxib [Celebrex] 400 mg capsule 400 mg PO DAILY sildenafil 100 mg tablet 100 mg PO DAILY PRN (Reason: sexual activity) Qty: 60 1RF Rx Instructions: administer 30 minutes to 4 hours before activity (DME) CPAP See Rx Instructions .Route .MEDSUPPLY Qty: 1 0RF Rx Instructions: CPAP of 11cm with full face mask and tubing atorvastatin 10 mg tablet See Rx Instructions .ROUTE .COMPLEX Qty: 90 1RF Dose Instruction: TAKE 1 TABLET BY MOUTH DAILY Rx Instructions: TAKE 1 TABLET BY MOUTH DAILY Eliquis 5 mg tablet 5 mg PO BID Qty: 180 1RF Follow-up/Referrals: Pinky Zhu DO [Primary Care Provider] - Time of Disposition: 09:27
== END 2024-03-29 09:33 | disposition short-term general hospital (02) ==
PROVIDERS: Emergency Provider Nurse Practitioner; PCP Family Medicine
DX: M79.604 Pain in right leg (principal); Z86.718 Personal history of other venous thrombosis and embolism; E78.2 Mixed hyperlipidemia; Z87.891 Personal history of nicotine dependence; F12.90 Cannabis use, unspecified, uncomplicated
CPT/HCPCS: 99212; G0463

== ENCOUNTER 2024-04-01 12:36 | Outpatient (CLI) | payer BC, SELFPAY ==
--- NOTE | ~2024-04-01 | MR_ITS ---
EXAMINATION: MR abdomen wo/w con DATE: 04/01/2024 13:33 INDICATION: Liver masses. No history of malignancy. TECHNIQUE: Magnetic resonance imaging (MRI) of the abdomen was performed without and with 15 mL Multi Ita intravenous contrast. COMPARISON: None. FINDINGS: There is a 5 mm cyst in left hepatic lobe. There is a 10 mm mass of increased T2-weighted signal inte nsity in right hepatic lobe that is not visible on postcontrast images, most likely a cyst that is af fected by partial volume averaging on postcontrast images. There is a 10 mm arterially hyperenhancing mass in right hepatic lobe without washout that is not visible on other sequences, most likely focal nodular hyperplasia. The gallbladder, spleen, pancreas, adrenal glands, and kidneys are normal. Ther e are no dilated loops of bowel. There are no pathologically enlarged lymph nodes. There is no ascite s. IMPRESSION: 1. Small liver lesions, probably benign. Reviewed, dictated and finalized at location A. WARE APPLICATIONS SPECIALIST
== END 2024-04-01 12:37 | disposition home or self-care (01) ==
PROVIDERS: PCP Family Medicine; Visit Provider Family Medicine
DX: K76.9 Liver disease, unspecified (principal); R16.0 Hepatomegaly, not elsewhere classified
CPT/HCPCS: 74183; A9577

== ENCOUNTER 2024-05-17 08:45 | Outpatient (RCR) | payer BC, SELFPAY ==
--- NOTE | 2024-04-19 10:03 | PTOPEVAL1 ---
Assessment and note entered by Venancio Dawkins, PT, DPT Evaluation Information Assessment Status Evaluation Diagnosis sciatic pain ICD-10 Condition Codes (PT) Pain in right hip M25.551,Pain in left hip M25.552 ,Difficulty Walking R26.2,Abnormalities of gait and mobility R26.9 Subjective Information Pt reports about a 3 week history of sciatic and piriformis pain. States he has been seeing a chiropractor for the last week and it seems to be helping. Will get some radicular pain down the leg at times. States he has been really focusing on stretching and mobility. States he has property and when walking on the trail his toes on his R side will do numb. States he worked out 2x/day, 6 days per week. Pt reports he wears a weighted vest during exercise. Reported Pain Level Pain Score 3: Self Report Assessment PT Clinical Summary Pt presents to therapy today for his initial evaluation with a diagnosis of sciatic pain. Today he demonstrates tenderness to palpation of his R piriformis, he has a negative neural tension test. He demonstrates good strength throughout with some decreased mobility throughout his hips and low back. Skilled therapy services are indicated to improve mobility, to limit pain, and to return to exercise routine without limitations. Plan of Care Interventions Electrical Stimulation,Gait Training,Hot Pack/Cold Pack,Manual Therapy,Neuro Re-education,Patient/ Caregiver Education,Therapeutic Activities, Therapeutic Exercise PT Services Indicated Yes Treatment Frequency and follow up in 1 month Duration These treatments will address the objective and functional deficits as defined above. The patient will be advanced safely and appropriately in order for the patient to progress towards his/her prior level of function. Additional exercises will be introduced and as well as a comprehensive home exercise program upon discharge, if needed, ?to ensure carryover of functional gains achieved in the clinic. This treatment plan has been reviewed and agreement upon by the patient.
--- NOTE | 2024-05-17 09:42 | PTOPDC ---
Assessment and note entered by Venancio Dawkins, PT, DPT Evaluation Information Assessment Status Discharge Diagnosis sciatic pain ICD-10 Condition Codes (PT) Pain in right hip M25.551,Pain in left hip M25.552 ,Difficulty Walking R26.2,Abnormalities of gait and mobility R26.9 Subjective Information Pt states when he wakes in the morning he has pain in the small of his back. States his trap are still sore in the mornings. States he does stretching and mobility exercises for 1-2 hours a day. He states his sciatic pain is now gone. Reported Pain Level Pain Score 0: Self Report Assessment PT Clinical Summary Pt presents to therapy today for his progress report after a month long participation in his HEP . He reports improvement of his sciatic symptoms. He continues to report upper trap tenderness and tightness. His HEP was progressed this date. Pt no longer requires skilled therapy services and will be discharged at this time. Plan of Care PT Services Indicated No
== END 2024-05-17 10:26 | disposition home or self-care (01) ==
LOC: ANHGOSHPT 08:45
PROVIDERS: PCP Family Medicine; Visit Provider Nurse Practitioner
DX: M54.30 Sciatica, unspecified side (principal); M25.551 Pain in right hip; M25.552 Pain in left hip; R26.2 Difficulty in walking, not elsewhere classified; R26.9 Unspecified abnormalities of gait and mobility
CPT/HCPCS: 97110; 97140; 97161

== ENCOUNTER 2024-06-07 08:17 | Outpatient (CLI) | payer BC, SELFPAY ==
--- OUTSIDE RECORDS SUMMARY | 2024-06-07 08:35 | XMS_ITS | Encounter Summary ---
Author Name [facility] Organization [facility] Address [address] [place] [address] Care Team Providers Care Car Builder Name Role Phone SWATI SCHWARTZ Primary Care Provider Unavail able Insurance Providers: All historical and current Section Date Range: From patient's date of to the date document was created. This section includes the names of all active insurance providers for the patient. Insurance Provider Type of Coverage Plan Name Start of Policy Coverage End of Policy Coverage Group Number Member ID Insurance Provider's Telephone Number Policy Castrejon's Name Patient's Relationship to Policy Castrejon [place] PREFERRED PROVIDER ORGANIZAT ION (PPO) HIGHM [employer]K [employer]BS Mar 31, 2015 [id number] [phone] BERNICEDARION DOE PATIENT [employer] PREFERRED PROVIDER ORGANIZAT ION (PPO) [employer] Mar 31, 2015 [id number] [phone] DARION QUEEN BROOK PATIENT [employer] ([employer]) PRESCRIPT ION REP WAGE Mar 31, 2004 [id number] [phone] PREMA QUEEN PATIENT Selected Encounter This section includes the information on record at [place] for the Encounter. Date/Time Encounter Type Encounter Description Reason Pro vider Source Apr 12, 2024 01:28 PM Outpatient Encounter GENERAL INTERNAL MEDICINE IHE Encounter Template Text not used by [place] Plan of Treatment: Future Appointments (+ 6 months) and Future Tests (+/- 45 days) The Plan of Treatment section includes future care activities for the patient [facility] [place] [facility] This section includes future appointments and future orders which are active, pending or scheduled. Future Appointments This section includes appointments that were scheduled to occur 6 months from the date of the Encounter, up to a maximum of 20 appointments. The data comes from all [facility]. Appointment Date/Time Appointment Type Appointme nt Facility Name May 19, 2024 09:00 AM AMBULATORY - MEDICINE [facility] Active, Pending, and Scheduled Orders This section includes a listing of several types of active, pending, and scheduled orders, including clinic medications orders, diagnostic test orders, procedure orders and consult orders; where the start date of the order is 45 days before the date of the Encounter or 45 days after the date of theEncounter. The data comes from all [facility]. Test Date/Time Test Type Test Details Facility Name May 20, 2024 12:00 AM Laboratory - Chemi stry Order PT/INR NEW (STL-NC) BLOOD PLASMA SP [facility] Social History: Smoking Status (Most current) and Tobacco Use (All prior to encounter date) This section includes the most current, and the historical, smoking and tobacco- related health factors from the [place] facility where the Encounter took place. Current Smoking Status This section includes the most current smoking, or tobacco-related health factor, from the [place] facility where the Encounter took place. Date/Time Current Smoking Status Comment Charly ity Oct 09, 2020 04:02 PM VA-TOBACCO USER EVERY DAY [facility] Tobacco Use History This section includes a history of the smoking, or tobacco-related health factors, that were collected on or before the date of the Encounter. The data comes from the [place] facility where the Encounter took place. Date/Time Smoking Status/Tobacco Use Comment F acility Oct 09, 2020 04:02 PM VA-TOBACCO USE > 1 5 LESS THAN 30 YEARS [facility] Oct 09, 2020 04:02 PM VA-TOBACCO USE ADVICE [facility] Oct 09, 2020 04:02 PM VA-TOBACCO USE MARKETING FINANCE SPECIALIST NO [facility] Oct 09, 2020 04:02 PM VA-TOBACCO USE MED NO [facility] Oct 09, 2020 04:02 PM VA-TOBACCO USER EVERY DAY [facility] Encounter Notes: All associated encounter notes This section contains the clinical notes associated to the Encounter. Date/Time Encounter Note(s) Provider Source Apr 12, 2024 01:28 PM NONVA NOTE: LOCAL TITLE: COMMUNITY CARE-CARE COORDINATION PLAN NOTE [address] [facility] STANDARD TITLE: NONVA NOTE DATE OF NOTE: APR 12, 2024@13:28 ENTRY DATE: APR 12, 2024@13:28:23 AUTHOR: TALON CHURCHILL EXP COSIGNER: URGENCY: STATUS: COMPLETED Yissel from [facility] called [facility] inquiring on comm care auth for PT for to use as secondary insurance. Supervisor [employer] advised prov there is no comm care auth on file for PT at this time and that would have to contact PCP at [place] to request comm care which may be approved or not. /[email or web address]/ TALON CHURCHILL Advanced Origination Specialist Signed: 04/12/2024 13:33 TALON CHURCHILL [facility]
--- OUTSIDE RECORDS SUMMARY | 2024-06-07 08:35 | XMS_ITS | Continuity of Care Document ---
Author Organization [facility] Address [address] [place] [address] [address] [place] [address] Phone Care Team Providers Care Tank Cleaner Name Role Phone Ryan OD OD, Linda [...] Encounter OFFICE/OUTPA TIENT VISIT, EST [facility], [id number] [place], [place] [address] [address], [place], [place], [id number], tel:[phone] [facility] [place] blurry vision (chief complaint) PresbyopiaOther vitreous opacities, bilateralPingue cula of left eyeDry eye syndrome of bilateral lacrimal glands 8 Ryan OD Linda. [address] , [address], [place], [place], [id number], [place]. tel:[phone] Referring Provider: Linda Davis OD, [address], [place], [place], [id number]. tel:[phone] Family History Family Member Type Diagnosis Age At Onset Problem (finding) No family history of Di abetes mellitus Problem (finding) No family hist ory of Macular degeneration Problem (finding) No family history of Hy pertension Problem (finding) No family history of Gl [place] Payers Payer name Insurance type Covered alliance party ID Authoriza tion(s) [facility] [id number] Social History Type Description Quantity Date Captured Comments Alcohol Use Details Caffeine Use Details Unknown Tobacco Use Status Heavy cigarette smok er (20-39 cigs/day) Smoking Status Heavy tobacco smoker Smoking Tobacco Use Details Cigarette: No Details Available Cigarette: 1 Packs per day Sex Male Chief Complaint And Reason For Visit From encounter dated '03/13/2018 11:25'. blurry vision (chief complaint). Description: The 48 year old male presents for evaluation of blurry vision. Pt reports a gradual decrease in near vision over the last 5 years, but seems to be progressing more rapidly over the last year. Distance vision seems stable. Wears OCT readers when remembers. Doesn't wear distance glasses or CTL's.Testing today: Optical Biometry, corneal topography, Optos, Pachymetry. Plan Of Treatment Date Type Action Status No Information History Of Present Illness Encounter [...] today: Optical Biometry, corneal topography, Optos, Pachymetry. Instructions Date Instruction Additional Infor mation Impression/Plan [...]
--- OUTSIDE RECORDS SUMMARY | 2024-06-07 08:35 | XMS_ITS | Continuity of Care Document ---
Author Name [facility] Organization [facility] Care Team Providers Care Cab Station Attendant Name Role Phone [facility] Unavailable Unavailable Problems Combined list of problems from [facility] and [facility] facilities. It does not include entries that were removed or entered in error. Problem Status Onset Date Problem Type Date of Resolution Comments Source History of SARS-CoV-2 Active 1 Condition [facility] Admits alcohol use Active Condition [facility] Depression ([facility] [id number]) Active Condition [facility] Erectile Dysfunction ([facility] [id number]) Active Condition [facility] Exposure to potentially hazardous substance Active Condition [facility] Hyperlipidemia ([facility] [id number]) Active Condition [facility] Hypersomnia Active Condition [facility] Past history of procedure Active Condition Nov 24, 2020 Entered By: KERVIN FERNANDEZ Comment: 08/2020, wisdom tooth extractions (2, 2) [facility] Posttraumatic stress disorder Active Condition [facility] Tobacco User ([facility] [id number]) Active Condition [facility] Diagnosis: ICD-10-CM Z86.718 Personal history of other venous thrombosis and embolism Active Diagnosis [facility] Diagnosis: ICD-10-CM E78.5 Hyperlipidemia, unspecified Active Diagnosis [facility] Medications Combined list of outpatient medications from [facility] and [facility] facilities.Medications provided include 1) outpatient medications from the last 15 months, and 2) patient-reported medications. Medication Details Route Status Patient Instructions Prescription Expires Prescription Number Last Dispense Date Ordering Provider Order Date Order Qty Source ACETAMINOPH EN 500MG TAB TAKE TWO TABLETS BY MOUTH FOUR TIMES A DAY CAUTION: DO NOT EXCEED 4000MG PER DAY ACETAMIN OPHEN (APAP) FROM ALL MEDS. ORAL ACTIVE 05/20/2025 [id number] [facility] 2024 700 [facility] APIXABAN 5MG TAB TAKE ONE TABLET BY MOUTH TWICE A DAY ORAL ACTIVE [facility] 2024 [facility] ASPIRIN 81MG TAB,EC TAKE ONE TABLET BY MOUTH ONCE A DAY ORAL ACTIVE PACE,VICT OR 2020 [facility] ATORVASTATI N CA 20MG TAB TAKE ONE-HALF TABLET BY MOUTH EVERY EVENING ORAL ACTIVE PACE,VICT OR 2020 [facility] BUPROPION HCL 150MG 24HR TAB,SA TAKE ONE TABLET BY MOUTH ONCE A DAY ORAL ACTIVE [facility] 2023 [facility] CELECOXIB 200MG CAP TAKE ONE CAPSULE BY MOUTH ONCE A DAY FOR OSTEOART HRITIS TAKE WITH FOOD. ORAL DISCONT INUED BY PROVIDE R 12/18/2024 [id number] [facility] 2023 90 [facility] FISH OIL 1000MG (500MG DHA/EPA) CAP,ORAL TAKE 2 CAPSULES BY MOUTH ONCE A DAY ORAL ACTIVE LANDING,VICT OR 2020 [facility] LISINOPRIL 20MG TAB TAKE ONE-HALF TABLET BY MOUTH ONCE A DAY ORAL ACTIVE [facility] 2024 [facility] MELOXICAM 15MG TAB TAKE ONE TABLET BY MOUTH ONCE A DAY FOR PAIN OR INFLAMMA TION ORAL DISCONT INUED BY PROVIDE R 03/28/2024 [id number] ME KIMBERLY TTISA 2023 90 [facility] MULTIVITAMI NS CAP/TAB TAKE ONE TABLET BY MOUTH ONCE A DAY ORAL ACTIVE LANDING,VICT OR 2020 [facility] Immunizations Combined list of available immunizations from the Department of Defense and Veterans Affairs facilities. Immunization Series Date Given Administered By Site Reaction Lot Number CVX Code Drug Asset Specialist Status Comments Source TDAP 2 2023 115 complet [facility] TDAP 1 2022 115 complet ed [facility] Results Combined list of recent chemistry, hematology and other laboratory results from Department of Defense and Veterans Affairs, ranging from 15 months to all on record, depending upon the facility. Order Name Results Value Reference Range Date Interpretation Specimen Comments Source IRON/TIBC PROFILE IRON BINDING CAPACITY [MASS/VOLU ME] IN SERUM OR PLASMA 351 ug/dL 250 - 450 05/20 Specimen Type: SERUM No comment entered. Ordering Provider: SWATI SCHWARTZ Report Released Date/Time: May 19, 2024 09:35 AM Reporting Lab: [facility] [address] [facility] [address] Performing Lab: [place] [address] [facility] [address] [facility] IRON/TIBC PROFILE TRANSFERRI N [MASS/VOLU ME] IN SERUM OR PLASMA 281 mg/dL 163 - 344 05/20 Specimen Type: SERUM No comment entered. Ordering Provider: SWATI SCHWARTZ Report Released Date/Time: May 19, 2024 09:35 AM Reporting Lab: [facility] [address] Performing Lab: [facility] [address] [address] [facility] IRON/TIBC PROFILE IRON SATURATION [MASS FRACTION] IN SERUM OR PLASMA 25 20 - 50 05/20 Specimen Type: SERUM No comment entered. Ordering Provider: SWATI SCHWARTZ Report Released Date/Time: May 19, 2024 09:35 AM Reporting Lab: [facility] [address] [place] [address] Performing Lab: [place] [address] [address] [facility] IRON/TIBC PROFILE IRON [MASS/VOLU ME] IN SERUM OR PLASMA 88 ug/dL 65 - 175 05/20 Specimen Type: SERUM No comment entered. Ordering Provider: SWATI SCHWARTZ Report Released Date/Time: May 19, 2024 09:35 AM Reporting Lab: [address] [address] Performing Lab: [address] [phone] [place] [address] TSH (MA-PB) THYROTROPI N [UNITS/VOL UME] IN SERUM OR PLASMA 0.719 u[IU]/mL 0.47 - 5 05/20 Specimen Type: SERUM No comment entered. Ordering Provider: SWATI SCHWARTZ Report Released Date/Time: May 19, 2024 02:51 PM Reporting Lab: [address] [address] Performing Lab: [address] [phone] CBC LEUKOCYTES [#/VOLUME] IN BLOOD BY AUTOMATED COUNT 5.9 10*3/uL 3.6 - 11.2 05/20 Specimen Type: BLOOD No comment entered. Ordering Provider: SWATI SCHWARTZ Report Released Date/Time: May 19, 2024 09:34 AM Reporting Lab: [address] [address] Performing Lab: [address] [phone] [place] [address] CBC ERYTHROCYT ES [#/VOLUME] IN BLOOD BY AUTOMATED COUNT 5.44 10*6/uL 4.10 - 5.70 05/20 Specimen Type: BLOOD No comment entered. Ordering Provider: SWATI SCHWARTZ Report Released Date/Time: May 19, 2024 09:34 AM Reporting Lab: [address] [address] Performing Lab: [address] [phone] [place] [address] CBC HEMOGLOBIN [MASS/VOLU ME] IN BLOOD 15.5 g/dL 13.1 - 16.8 05/20 Specimen Type: BLOOD No comment entered. Ordering Provider: SWATI SCHWARTZ Report Released Date/Time: May 19, 2024 09:34 AM Reporting Lab: [address] [address] Performing Lab: [address] [phone] [place] [address] CBC HEMATOCRIT [VOLUME FRACTION] OF BLOOD 46.8 38.2 - 48.4 05/20 Specimen Type: BLOOD No comment entered. Ordering Provider: SWATI SCHWARTZ Report Released Date/Time: May 19, 2024 09:34 AM Reporting Lab: [address] [address] Performing Lab: [address] [phone] CBC MCV [ENTITIC VOLUME] BY AUTOMATED COUNT 86.0 fL 80.0 - 100.0 05/20 Specimen Type: BLOOD No comment entered. Ordering Provider: SWATI SCHWARTZ Report Released Date/Time: May 19, 2024 09:34 AM Reporting Lab: [address] [address] Performing Lab: [address] [phone] [place] [address] CBC MCH [ENTITIC MASS] BY AUTOMATED COUNT 28.5 pg 27.0 - 34.0 05/20 Specimen Type: BLOOD No comment entered. Ordering Provider: SWATI SCHWARTZ Report Released Date/Time: May 19, 2024 09:34 AM Reporting Lab: [address] [address] Performing Lab: [address] [phone] CBC MCHC [MASS/VOLU ME] BY AUTOMATED COUNT 33.1 g/dL 33.0 - 36.0 05/20 Specimen Type: BLOOD No comment entered. Ordering Provider: SWATI SCHWARTZ Report Released Date/Time: May 19, 2024 09:34 AM Reporting Lab: [facility] [address] [place] [address] Performing Lab: [facility] [address] [place] [address] [facility] CBC PLATELETS [#/VOLUME] IN BLOOD BY AUTOMATED COUNT 295 10*3/uL 150 - 400 05/20 Specimen Type: BLOOD No comment entered. Ordering Provider: SWATI SCHWARTZ Report Released Date/Time: May 19, 2024 09:34 AM Reporting Lab: [address] [address] Performing Lab: [address] [phone] [place] [address] CBC PLATELET MEAN VOLUME [ENTITIC VOLUME] IN BLOOD BY AUTOMATED COUNT 10.0 fL 7.5 - 11.2 05/20 Specimen Type: BLOOD No comment entered. Ordering Provider: SWATI SCHWARTZ Report Released Date/Time: May 19, 2024 09:34 AM Reporting Lab: [facility] [address] [place] [address] Performing Lab: [address] [address] [facility] CBC ERYTHROCYT E DISTRIBUTI ON WIDTH [RATIO] BY AUTOMATED COUNT 13.0 11.8 - 15.1 05/20 Specimen Type: BLOOD No comment entered. Ordering Provider: SWATI SCHWARTZ Report Released Date/Time: May 19, 2024 09:34 AM Reporting Lab: [facility] [address] [place] [phone] Performing Lab: [facility] [address] [place] [phone] [facility] CBC LYMPHOCYTE S/100 LEUKOCYTES IN BLOOD BY AUTOMATED COUNT 42 05/20 Specimen Type: BLOOD No comment entered. Ordering Provider: SWATI SCHWARTZ Report Released Date/Time: May 19, 2024 09:34 AM Reporting Lab: [facility] [address] [address] Performing Lab: [facility] [address] [address] [facility] CBC MONOCYTES/ 100 LEUKOCYTES IN BLOOD BY AUTOMATED COUNT 10 05/20 Specimen Type: BLOOD No comment entered. Ordering Provider: SWATI SCHWARTZ Report Released Date/Time: May 19, 2024 09:34 AM Reporting Lab: [facility] [address] [address] Performing Lab: [facility] [address] [address] [facility] CBC NEUTROPHIL S/100 LEUKOCYTES IN BLOOD BY AUTOMATED COUNT 44 05/20 Specimen Type: BLOOD No comment entered. Ordering Provider: SWATI SCHWARTZ Report Released Date/Time: May 19, 2024 09:34 AM Reporting Lab: [facility] [address] [address] Performing Lab: [facility] [address] [address] [facility] CBC EOSINOPHIL S/100 LEUKOCYTES IN BLOOD BY AUTOMATED COUNT 4 05/20 Specimen Type: BLOOD No comment entered. Ordering Provider: SWATI SCHWARTZ Report Released Date/Time: May 19, 2024 09:34 AM Reporting Lab: [facility] [address] [address] Performing Lab: [facility] [address] [address] [facility] CBC BASOPHILS/ 100 LEUKOCYTES IN BLOOD BY AUTOMATED COUNT 1 05/20 Specimen Type: BLOOD No comment entered. Ordering Provider: SWATI SCHWARTZ Report Released Date/Time: May 19, 2024 09:34 AM Reporting Lab: [facility] [address] [address] Performing Lab: [address] [address] [facility] CBC LYMPHOCYTE S [#/VOLUME] IN BLOOD BY AUTOMATED COUNT 2.47 10*3/uL 0.77 - 4.50 05/20 Specimen Type: BLOOD No comment entered. Ordering Provider: SWATI SCHWARTZ Report Released Date/Time: May 19, 2024 09:34 AM Reporting Lab: [address] [address] Performing Lab: [address] [address] [facility] CBC MONOCYTES [#/VOLUME] IN BLOOD BY AUTOMATED COUNT 0.59 10*3/uL 0.19 - 0.80 05/20 Specimen Type: BLOOD No comment entered. Ordering Provider: SWATI SCHWARTZ Report Released Date/Time: May 19, 2024 09:34 AM Reporting Lab: [address] [address] Performing Lab: [address] [phone] [place] [address] CBC NEUTROPHIL S [#/VOLUME] IN BLOOD BY AUTOMATED COUNT 2.61 10*3/uL 2.10 - 8.00 05/20 Specimen Type: BLOOD No comment entered. Ordering Provider: SWATI SCHWARTZ Report Released Date/Time: May 19, 2024 09:34 AM Reporting Lab: [address] [address] Performing Lab: [address] [address] [facility] CBC EOSINOPHIL S [#/VOLUME] IN BLOOD BY AUTOMATED COUNT 0.21 10*3/uL 0.00 - 0.60 05/20 Specimen Type: BLOOD No comment entered. Ordering Provider: SWATI SCHWARTZ Report Released Date/Time: May 19, 2024 09:34 AM Reporting Lab: [address] [place] [address] Performing Lab: [address] [address] [facility] CBC BASOPHILS [#/VOLUME] IN BLOOD BY AUTOMATED COUNT 0.05 10*3/uL 0.00 - 0.20 05/20 Specimen Type: BLOOD No comment entered. Ordering Provider: SWATI SCHWARTZ Report Released Date/Time: May 19, 2024 09:34 AM Reporting Lab: [address] [address] Performing Lab: [address] [phone] [place] [address] COMPREHEN SIVE METABOLIC PANEL CREATININE [MASS/VOLU ME] IN SERUM OR PLASMA 1.05 mg/dL 0.7 - 1.3 05/20 Specimen Type: PLASMA Comment: No hemolysis noted. Ordering Provider: SWATI SCHWARTZ Report Released Date/Time: May 19, 2024 09:34 AM Reporting Lab: [address] [address] Performing Lab: [address] [address] [facility] COMPREHEN SIVE METABOLIC PANEL UREA NITROGEN [MASS/VOLU ME] IN SERUM OR PLASMA 13.4 mg/dL 9.0 - 25.0 05/20 Specimen Type: PLASMA Comment: No hemolysis noted. Ordering Provider: SWATI SCHWARTZ Report Released Date/Time: May 19, 2024 09:34 AM Reporting Lab: [address] [address] Performing Lab: [address] [address] [facility] COMPREHEN SIVE METABOLIC PANEL GLUCOSE [MASS/VOLU ME] IN SERUM OR PLASMA 108 mg/dL 72 - 99 05/20 H Specimen Type: PLASMA Comment: No hemolysis noted. Ordering Provider: SWATI SCHWARTZ Report Released Date/Time: May 19, 2024 09:34 AM Reporting Lab: [facility] [address] [address] Performing Lab: [facility] [address] [address] [facility] COMPREHEN SIVE METABOLIC PANEL SODIUM [MOLES/VOL UME] IN SERUM OR PLASMA 138 meq/L 136 - 145 05/20 Specimen Type: PLASMA Comment: No hemolysis noted. Ordering Provider: SWATI SCHWARTZ Report Released Date/Time: May 19, 2024 09:34 AM Reporting Lab: [facility] [address] [facility] [address] Performing Lab: [facility] [address] [facility] [address] [facility] COMPREHEN SIVE METABOLIC PANEL POTASSIUM [MOLES/VOL UME] IN SERUM OR PLASMA 4.2 meq/L 3.5 - 5 05/20 Specimen Type: PLASMA Comment: No hemolysis noted. Ordering Provider: SWATI SCHWARTZ Report Released Date/Time: May 19, 2024 09:34 AM Reporting Lab: [facility] [address] [place] [address] Performing Lab: [facility] [address] [place] [facility] [place] [address] [facility] COMPREHEN SIVE METABOLIC PANEL CHLORIDE [MOLES/VOL UME] IN SERUM OR PLASMA 106 meq/L 98 - 107 05/20 Specimen Type: PLASMA Comment: No hemolysis noted. Ordering Provider: SWATI SCHWARTZ Report Released Date/Time: May 19, 2024 09:34 AM Reporting Lab: [facility] [address] [address] Performing Lab: [facility] [address] [facility] [address] [facility] COMPREHEN SIVE METABOLIC PANEL CARBON DIOXIDE, TOTAL [MOLES/VOL UME] IN SERUM OR PLASMA 21 meq/L 22 - 31 05/20 L Specimen Type: PLASMA Comment: No hemolysis noted. Ordering Provider: SWATI SCHWARTZ Report Released Date/Time: May 19, 2024 09:34 AM Reporting Lab: [facility] [address] [address] Performing Lab: [facility] [address] [facility] [address] [facility] COMPREHEN SIVE METABOLIC PANEL CALCIUM [MASS/VOLU ME] IN SERUM OR PLASMA 9.6 mg/dL 8.4 - 10.4 05/20 Specimen Type: PLASMA Comment: No hemolysis noted. Ordering Provider: SWATI SCHWARTZ Report Released Date/Time: May 19, 2024 09:34 AM Reporting Lab: [facility] [address] [address] Performing Lab: [facility] [address] [facility] [address] [facility] COMPREHEN SIVE METABOLIC PANEL PROTEIN [MASS/VOLU ME] IN SERUM OR PLASMA 7.6 g/dL 6 - 8.6 05/20 Specimen Type: PLASMA Comment: No hemolysis noted. Ordering Provider: SWATI SCHWARTZ Report Released Date/Time: May 19, 2024 09:34 AM Reporting Lab: [facility] [address] [address] Performing Lab: [facility] [address] [address] [facility] COMPREHEN SIVE METABOLIC PANEL ALBUMIN [MASS/VOLU ME] IN SERUM OR PLASMA 4.2 g/dL 3.4 - 5 05/20 Specimen Type: PLASMA Comment: No hemolysis noted. Ordering Provider: SWATI SCHWARTZ Report Released Date/Time: May 19, 2024 09:34 AM Reporting Lab: [facility] [address] [address] Performing Lab: [facility] [address] [address] [facility] COMPREHEN SIVE METABOLIC PANEL BILIRUBIN. TOTAL [MASS/VOLU ME] IN SERUM OR PLASMA 0.6 mg/dL 0.2 - 1.2 05/20 Specimen Type: PLASMA Comment: No hemolysis noted. Ordering Provider: SWATI SCHWARTZ Report Released Date/Time: May 19, 2024 09:34 AM Reporting Lab: [facility] [address] [place] [address] Performing Lab: [facility] [address] [place] [address] [facility] COMPREHEN SIVE METABOLIC PANEL ALKALINE PHOSPHATAS E [ENZYMATIC ACTIVITY/V OLUME] IN SERUM OR PLASMA 71 U/L 40 - 150 05/20 Specimen Type: PLASMA Comment: No hemolysis noted. Ordering Provider: SWATI SCHWARTZ Report Released Date/Time: May 19, 2024 09:34 AM Reporting Lab: [facility] [address] [address] Performing Lab: [facility] [address] [address] [facility] COMPREHEN SIVE METABOLIC PANEL ASPARTATE AMINOTRANS FERASE [ENZYMATIC ACTIVITY/V OLUME] IN SERUM OR PLASMA 68 U/L 5 - 34 05/20 H Specimen Type: PLASMA Comment: No hemolysis noted. Ordering Provider: SWATI SCHWARTZ Report Released Date/Time: May 19, 2024 09:34 AM Reporting Lab: [facility] [address] [address] Performing Lab: [facility] [address] [place] [address] [facility] COMPREHEN SIVE METABOLIC PANEL ALANINE AMINOTRANS FERASE [ENZYMATIC ACTIVITY/V OLUME] IN SERUM OR PLASMA 76 U/L 8 - 40 05/20 H Specimen Type: PLASMA Comment: No hemolysis noted. Ordering Provider: SWATI SCHWARTZ Report Released Date/Time: May 19, 2024 09:34 AM Reporting Lab: [facility] [address] [place] [address] Performing Lab: [address] [phone] [place] [address] COMPREHEN SIVE METABOLIC PANEL GLOMERULAR FILTRATION RATE/1.73 SQ M.PREDICTE D [VOLUME RATE/AREA] IN SERUM, PLASMA OR BLOOD BY CREATININE -BASED FORMULA (CKD-EPI 2020) 83.8 60 05/20 Specimen Type: PLASMA Comment: No hemolysis noted. Ordering Provider: SWATI SCHWARTZ Report Released Date/Time: May 19, 2024 09:34 AM Reporting Lab: [address] [address] Performing Lab: [address] [phone] [place] [address] POC INR (STL-RX MONITORIN G ONLY) INR IN BLOOD BY COAGULATIO N ASSAY 1.1 {INR} 0.9 - 1.1 05/20 Specimen Type: BLOOD Comment: Test Performed by: [id number] Meter #: [id number] Ordering Provider: KULWANT GORDILLO Report Released Date/Time: May 20, 2024 01:59 PM Reporting Lab: [address] [address] Performing Lab: [facility] [address] [facility] [address] [facility] OCCULT BLOOD FIT X1 SCREEN (MFP ONLY) HEMOGLOBIN .GASTROINT ESTINAL.LO WER [PRESENCE] IN STOOL BY IMMUNOASSA Y Negative 02/04 Specimen Type: FECES No comment entered. Ordering Provider: SWATI SCHWARTZ Report Released Date/Time: Dec 22, 2023 11:57 AM Reporting Lab: [address] [address] Performing Lab: [address] [address] [facility] Vital Signs Combined list of inpatient and outpatient Vital Signs from Department of Defense and Veterans Affairs, ranging from 12 months to all on record, depending upon the facility. Vital Sign Value Date Comments Source SYSTOLIC BLOOD PRESSURE 130 12/18/2023 13:32:36 [facility] DIASTOLIC BLOOD PRESSURE 75 12/18/2023 13:32:36 [facility] PULSE OXIMETRY 97 12/18/2023 13:32:36 [facility] WEIGHT 168 12/18/2023 13:32:[facility] BMI 28 kg/m2 12/18/2023 13:32:[facility] PAIN 7 12/18/2023 13:32:[address] [facility] HEIGHT 65 12/18/2023 13:32:[address] [facility] TEMPERATURE 98.7 12/18/2023 13:32:36 [facility] PULSE 65 12/18/2023 13:32:[address] [facility] RESPIRATION 18 12/18/2023 13:32:36 [facility] Encounters Combined list of: 1) Encounters from Department of Veterans Affairs facilities going backup to the last 18 months, not all VA inpatient encounters are included; 2) Encounters from the Department of [facility] facilities going backup to 280 months. Location Location Details Encounter Type Encounter Number Reason For Visit Attending Provider ADM Date DC Date Status Disposition Source [facility] Outpatient Encounter [id number] 03/28 [facility] Outpatient Encounter [id number] 06/25 [facility] Outpatient Encounter [id number] 08[facility] Outpatient Encounter [id number] 12/[address] [facility] MOD 30 MIN [id number] Diagnos is: ICD-10- CM E78.5 Hyperli pidemia , unspeci fied [facility]I SCHWARTZ 12/17 [facility] Encounter [id number] WILLIAN SLATER IN L 02/15 [facility] Outpatient Encounter [id number] 04[facility]01 [facility] En[facility] [id number] SWATI SCHWARTZ 04/02 [facility] Outpatient Encounter [id number] 04/12 [facility] En[facility] [id number] 05/10 [facility] SYNCH AUDIO-ONLY NEW HIGH 60 [id number] Diagnos is: ICD-10- CM Z86.718 Persona l history of other venous thrombo sis and embolis SWATI Moreland 05/19 [facility] Encounter [id number] 05/28 [facility] Social History Combined list of available smoking, tobacco, and other social history from [employer] and [facility] Affairs facilities. Social History Type Response Date Comment Sourc e Tobacco smoking status NHIS [place]-TO[place]AC[place] FORMER USER 12/18/2023 [facility] History of tobacco use [place]-TO[place]AC[place] QUIT 1 TO < 5 YRS 12/18/2023 [facility] History of tobacco use [place]-TOBACCO USER S OME DAYS 11/23/2021 [facility] History of tobacco use [place]-TOBACCO USER E VERY DAY 10/09/2020 [facility] This section is an empty social history section. [facility] Plan of Care List of future care activities from [facility] facilities. Additional future care activities may be listed in the Assessment and Plan section. Date/Time Care Activity Care Activity Detail Facili ty 05/20/2024 Laboratory - Helper Electrical ry Order PT/INR NEW ([facility]) BLOOD PLASMA SP [facility]
--- OUTSIDE RECORDS SUMMARY | 2024-06-07 08:35 | XMS_ITS | Encounter Summary ---
Author Name [facility] [place] [facility] [place] Address [address] [place] [address] Care Team Providers Care Label Maker Name Role Phone SWATI SCHWARTZ Primary Care [...] [place] PREFERRED PROVIDER ORGANIZAT ION (PPO) [place] [employer] Mar 31, 2015 [id number] [phone] DARION QUEEN PATIENT ANTHEM [place] PREFERRED PROVIDER ORGANIZAT ION (PPO) [place] [employer] Mar 31, 2015 [id number] [phone] DARION QUEEN PATIENT [employer] ([employer]) PRESCRIPT ION REP WAGE Mar 31, 2004 [id number] [phone] PREMA QUEEN PATIENT Selected Encounter This section includes the information on record at [place] for the Encounter. Date/Time Encounter Type Encounter Description Reason Pro vider Source IHE Encounter Template Text not used by [facility]
--- OUTSIDE RECORDS SUMMARY | 2024-06-07 08:35 | XMS_ITS | Encounter Summary ---
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 Date/Time Encounter Type Encounter Description Reason Provider Source Apr 02, 2024 10:51 AM Outpatient Encounter GENERAL INTERNAL MEDICINE NIMA SCHWARTZ I[facility] Encounter Template Text not used by [place] Plan of Treatment: Future Appointments (+ 6 months) and Future Tests (+/- 45 days) The Plan of Treatment section includes [facility] care [facility] for the [facility] [place] [facility] This section includes future appointments and future orders which are active, pending or scheduled. Future Appointments This section includes appointments that were scheduled to occur 6 months from the date of the Encounter, up to a maximum of 20 appointments. The data comes from all [place] treatment facilities. Appointment Date/Time Appointment Type Appointme nt Facility Name May 19, 2024 09:00 AM AMBULATORY - MEDICINE [facility] Social History: Smoking Status (Most current) and Tobacco Use (All prior to encounter date) This section includes the most current, and the historical, smoking and tobacco- related health factors from the [place] facility where the Encounter took place. Current Smoking Status This section includes the most current smoking, or tobacco-related health factor, from the [place] facility where the Encounter took place. Date/Time Current Smoking Status Comment Charly itsharon Oct 09, 2020 04:02 PM VA-TOBACCO USER EVERY DAY [facility] Tobacco Use History This section includes a history of the smoking, or tobacco-related health factors, that were collected on or before the date of the Encounter. The data comes from the [place] facility where the Encounter took place. 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 Date/Time Encounter Note(s) Provider Source Mar 29, 2024 10:51 AM NONVA NOTE: LOCAL TITLE: [facility] COORD PLAN STANDARD TITLE: NONVA NOTE DATE OF NOTE: MAR 29, 2024@10:51 ENTRY DATE: APR 02, 2024@10:51:58 AUTHOR: RADUJune COSIGNER: URGENCY: STATUS: COMPLETED Emergency Notification Intake Date Presenting to the Facility: Feb Method of Contact: Notified from ECR worklist Notification ID: [id number] [facility] Referral #: [id number] Clinical Review [facility] Name: Hospital: [facility] Address: [address] [place] [address] City: [place] State: [place] Zip Code: [address] Chief complaint: TESTING OF BLOOD CLOTS, SCIATICA Primary Diagnosis: Right leg pain Disposition Discharged Date of discharge: Feb Discharge to home EXCERPT FROM ER DISCHARGE NOTE BELOW The ultrasound showed adequate blood flow to the foot. The venous ultrasound did not show any blood clot in the leg. You were given a dose of lovenox (a blood thinner). This will last for 24 hours. Resume your Elaquis in the morning. For the pain, apply the lidoderm patches that you have at home. If you need additional pain medication, take 2 extra strength tylenol. If you still need additional pain medication, use the oxycodone as prescribed. Follow-up with your primary care provider (Pinky Zhu) and your vascular surgeon. Records r/t this episode of care may be found in [facility]; also sent to [facility] for scanning. Please review attached DC summary and place any necessary referrals/consults LUIS CARLOS to avoid non-payment for follow-up services. // LAY RADU ADVANCED LIVE STUDY MANAGER Signed: 04/02/2024 10:57 Receipt Acknowledged By: 04/02/2024 11:03 /es/ COLBY NIELSEN- NURSE PRACTITIONER 04/06/2024 14:16 /bhaskar/ LALY CHAU, RN, BSN Registered Nurse [facility]
--- OUTSIDE RECORDS SUMMARY | 2024-06-07 08:35 | XMS_ITS | Clinical Summary ---
Author Organization [facility] [facility] Address [address] [place] [id number] Care Team Providers Care Dry Dip Worker Name Role Phone ValeriamynorPinky salmeron Primary Care Provider [phone]- [phone] Allergies No known active allergies Medications atorvastatin (LIPITOR) 10 mg tablet Take 1 tablet (10 mg total) by mouth daily 4 Active buPROPion XL (WELLBUTRIN XL) 150 mg 24 hr tablet Take 1 tablet (150 mg total) by mouth daily 4 Active cyclobenzaprine (FLEXERIL) 10 mg tablet Take 1 tablet (10 mg total) by mouth 3 (three) times a day as needed for muscle spasms 4 Active HYDROcodone-acet aminophen (NORCO) 5-325 mg per tablet Take 1 tablet by mouth every 6 (six) hours as needed for pain 4 Active acetaminophen (TYLENOL) 325 mg tablet Take 2 tablets (650 mg total) by mouth every 6 (six) hours as needed for pain Active omega-3 fatty acids-fish oil 300-1,000 mg capsule Take 2 capsules (2 g total) by mouth daily Active multivitamin with folic acid 400 mcg tablet Take 1 tablet by mouth daily Active glucosamine HCl 750 mg tablet Take 1 tablet by mouth daily Active apixaban 5 mg (74 tabs) tablets,dose pack Take 10 mg (2 tablets) by mouth 2 (two) times a day for 7 days, then take 5 mg (1 tablet) by mouth 2 (two) times a day thereafter. 74 tablet 4 Active oxyCODONE (ROXICODONE) 5 mg immediate release tabletIndication s:Pain Take 1-2 tablets (5-10 mg total) by mouth every 4 (four) hours as needed for pain (severe pain) 12 tablet 4 Active Additional Information Patient not taking.Reported on 04/14/2024 nutritional supplements liquid Take by mouth Active traMADoL (ULTRAM) 50 mg tablet Take 1 tablet (50 mg total) by mouth every 6 (six) hours Active lisinopriL (PRINIVIL,ZESTRI L) 10 mg tablet Take 1 tablet (10 mg total) by mouth daily Active aspirin 81 mg enteric coated tablet Take 1 tablet (81 mg total) by mouth daily 1 Active Active Problems Problem Noted Date Diagnosed Date Primary hypertension 04/14/2024 Assessment & Plan (04/14/2024 9:06 AM AIR VALUE TESTER): Stable continue lisinopril Popliteal artery occlusion, 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 MARIA VICTORIA now at 0.7 2.8 nosy-qe-ogpqciev disease. Continue anticoagulation. Noninvasives testing in 6 months. Hematology appointment May. Assessment & Plan (03/12/2024 10:49 AM AIR VALUE TESTER): Right lower extremity acute limb ischemia status post lysis, aspiration thrombectomy with conversion to open thrombectomy by Colin Gomez MD. we will get baseline noninvasive testing. Continue HLD and Eliquis. Referral sent to hematology Hypertriglyceridemia 02/13/2024 Assessment & Plan (04/14/2024 9:05 AM AIR VALUE TESTER): Stable continue Lipitor Major depressive disorder 02/12/2024 Hyperlipidemia 02/12/2024 PTSD (post-traumatic stress disorder) 02/12/2024 PAD (peripheral artery disease) 02/12/2024 Pain in shoulder 07/07/2015 Encounters Date Type Department Care Team Description 06/01/2024 Telephone [facility] Floor [address] [place] [address] Denisse Meehan RMA 04/16/2024 Telephone [facility] at [address] [address] Kiley Marin MA 04/14/2024 9:00 AM AIR VALUE TESTER Office Visit [facility] at [address] [address] Mirna Gomez MD Popliteal artery occlusion, right (Primary Dx); Hypertriglyceridemia ; Mixed hyperlipidemia; Primary hypertension 04/14/2024 8:00 AM AIR VALUE TESTER Ancillary Procedure [facility] at [address] [address] Aftercare following surgery of the circulatory system 04/14/2024 8:00 AM AIR VALUE TESTER Ancillary Procedure [facility] at [address] [address] Aftercare following surgery of the circulatory system 04/14/2024 Orders Only [facility] at [address] [address] Mirna Gomez MD Aftercare following surgery of the circulatory system (Primary Dx); Popliteal artery occlusion, right 03/29/2024 4:37 PM AIR VALUE TESTER - 03/29/2024 5:12 PM AIR VALUE TESTER Emergency [facility] [address] [place] [id number] Xander Conde MD Right leg pain (Primary Dx); Acute low back pain with right-sided sciatica, unspecified back pain laterality Discharge Disposition: Discharge to home or self care 03/27/2024 Patient Self-Triage [facility] [address] [place] [address] Kierstent, Generic Provider 03/11/2024 Orders Only [facility] [address] [address] Mirna Gomez MD Aftercare following surgery of the circulatory system (Primary Dx) 03/10/2024 8:30 AM AIR VALUE TESTER Office Visit [facility] at [address] [address] Mirna Gomez MD Popliteal artery occlusion, right (Primary Dx) 03/10/2024 Orders Only [facility] at [address] [place] [address] Mirna Gomez MD Aftercare following surgery of the circulatory system from Last 3 Months Medical History Medical History Date Comments Hyperlipidemia Family History Medical History Relation Name Comments Stroke Father Family history of cerebrovascular accident (CVA) - (Added by TW Conv) Stroke Other Family history of cerebrovascular accident (CVA) - Relation: Grandparent (Added by TW Conv) Relation Name Status Comments Father Other Social History Tobacco Use Types Packs/Day Years Used Date Smoking Tobacco: Former Cigarettes 0.3 34 1 9 - 2022 Tobacco Cessation:Counseling Given: Not Answered [facility] Utilities Answer Date Recorded In the past 12 months has e electric, gas, oil, or water company threatened to shut off services in your home? No 02/13/2024 Social Connection and Isolation Panel [NHANES] A nswer Date Recorded In a typical week, how many times do you talk on the phone with family, friends, or neighbors? Three times a week 02/13/2024 How often do you get togethe r with friends or relatives? Twice a week 02/13/2024 How often do you attend [facility] ch or nondenominational services? Never 02/13/2024 Do you belong to any clubs o r organizations such as sabianist groups, unions, fraternal or athletic groups, or school groups? No 02/13/2024 How often do you attend meet ings of the clubs or organizations you belong to? Never 02/13/2024 Are you , , di vorced, , never , or living with a partner? 02/13/2024 AUDIT-C Answer Date Recorded Q1: How often do you have a drink containing alcohol? 4 or more times a week 02/17/2024 Q2: How many drinks containi ng alcohol do you have on a typical day when you are drinking? 3 or 4 Q3: How often do you have si x or more drinks on one occasion? Less than monthly 02/17/2024 Overall Financial Resource Strain (CARDIA) Answe r Date Recorded How hard is it for you to pa y for the very basics like food, housing, medical care, and heating? Not hard at all 02/13/2024 Hunger Vital Sign Answer Date Recorded Within the past 12 months, y ou worried that your food would run out before you got the money to buy more. Never true 02/13/20 24 Within the past 12 months, t he food you bought just didn't last and you didn't have money to get more. Never true 02/13/2024 PRAPARE - Transportation Answer Date Re corded In the past 12 months, has l ack of transportation kept you from medical appointments or from getting medications? No 01/29 In the past 12 months, has l ack of transportation kept you from meetings, work, or from getting things needed for daily living? No 02/13/2024 Housing Stability Vital Sign Answer Alexandro e Recorded In the last 12 months, was t here a time when you were not able to pay the mortgage or rent on time? No 02/13/2024 In the past 12 months, how m any times have you moved where you were living? 0 02/13/2024 At any time in the past 12 m [facility], were you homeless or living in a usp (including now)? No 02/13/2024 Personal Safety Answer Date Recorded Have you ever been in or are you currently in a harmful physical or emotional relationship or is someone making you feel afraid or unsafe? Denies 03/29/2024 Sex and Gender Information Value Date Recorded Sex Assigned at Not on file Legal Sex Male 10:55 AM AIR VALUE TESTER Gender Identity Not on file Sexual Orientation Not on file Obstetrics History Last Filed Vital Signs Vital Sign Reading Time Taken Comments Blood Pressure 134/93 04/14/2024 8:43 AM AIR VALUE TESTER Pulse 60 04/14/2024 8:43 AM AIR VALUE TESTER Temperature 36.8 C (98.3 F) 03/29/2024 10:49 AM AIR VALUE TESTER Respiratory Rate 23 03/29/2024 5:05 PM AIR VALUE TESTER Oxygen Saturation 99% 04/14/2024 8:43 AM AIR VALUE TESTER Inhaled Oxygen Concentration - - Weight 72.1 kg (159 lb) 04/14/2024 8:43 AM AIR VALUE TESTER Height 165.1 cm (5' 5 ) 04/14/2024 8:43 AM AIR VALUE TESTER Body Mass Index 26.46 04/14/2024 8:43 AM AIR VALUE TESTER Plan of Treatment Health Maintenance Due Date Last Done Comments Colon Cancer Screening-Colonoscopy 1970 Depression Screening 1969 Hepatitis C Screening 1970 Prostate Cancer Screening-PSA 1969 Hepatitis B Screening 1987 Regular Well Visit/Exam 18-64 1987 Zoster Vaccine (1 of 2) 2019 Influenza Vaccine (#1) 2023 DTaP/Tdap/Td Vaccine (3 - Td or Tdap) 06/25/2033 06/26/2023, 08/08/2022 Pneumococcal vaccine <65 Aged Out No longer eligible based on patient's age to complete this topic Medical Devices Implanted Type Area Floorhand Device Identifier Shelf Expiration Date Model / Serial / Lot [employer] V[employer] System Closure Repair Femoral Artery Suture Mediated Perclose Prostyle 56424-85 - [id number] Implanted:Qty: 1 on 02/18/2024 by Colin Gomez MD at [facility] [employer] 10/28/2025 [id number] / / [id number] [employer] Patch Vascuguard 0.88cm [id number] - [id number] Implanted:Qty: 1 on 02/19/2024 by Colin Gomez MD at [facility] Right: Popleteal Artery [facility] [id number] 09/14/2025 [id number] / / [id number] Description:Patch to poplite al artery and TP trunk Procedures Procedure Name Priority Date/Time Associated Diagnosis Comments US ARTERIAL DUPLEX LOWER EXTREMITY RIGHT LIMITED Schedule Routine, Read Routine (OP Routine) 04/14/2024 9:47 AM AIR VALUE TESTER Aftercare following surgery of the circulatory system US MARIA VICTORIA Schedule Routine, Read Routine (OP Routine) 04/14/2024 9:47 AM AIR VALUE TESTER Aftercare following surgery of the circulatory system US MARIA VICTORIA ED 03/29/2024 4:32 PM AIR VALUE TESTER US VEIN DUPLEX LOWER EXTREMITY RIGHT LIMITED ED 03/29/2024 4:28 PM AIR VALUE TESTER EGFR STAT 03/29/2024 2:15 PM AIR VALUE TESTER DIFFERENTIAL AUTO STAT 03/29/2024 2:1 5 PM AIR VALUE TESTER APTT STAT 03/29/2024 2:15 PM AIR VALUE TESTER PROTIME-INR STAT 03/29/2024 2:15 PM AIR VALUE TESTER CBC WITH AUTO DIFFERENTIAL STAT 03/29/2024 2:15 PM AIR VALUE TESTER COMPREHENSIVE METABOLIC PANEL STAT 03/29/2024 2:15 PM AIR VALUE TESTER from Last 3 Months Results * US Arterial Duplex Lower Extremity Right Limited (04/14/2024 9:47 AM AIR VALUE TESTER) LV EF % CONS SCIMAGE Anatomical Region Laterality Modality Vascular Right Ultrasound 04/14/2024 8:07 AM AIR VALUE TESTER Narrative 04/15/2024 3:54 PM AIR VALUE TESTER Vascular & Vein Surgery [address] [place] [address] Lower Extremity Arterial Duplex Report Patient Name: JOAQUIN BORRERO L : 1970 (54y 2m) Gender: M Study Date: 04/14/2024 08:07:07 AM Ht(Inch): Wt(Lb): BSA: Radio Station Audio Engineer: Location: [facility] Order Provider: MIRNA GOMEZ Quality: Adequate Ref Provider: MIRNA GOMEZ PROCEDURES: Arterial Report: A non-invasive vascular imaging study of the right lower extremity arteries was performed using B-mode ultrasound, color flow, and spectral Doppler. INDICATIONS: S/P thromb Rt pop, TPT, BLENDING MACHINE OPERATOR & mao 02/19/24; S/P thromb Rt pop, TPT & BLENDING MACHINE OPERATOR 02/16/24. HISTORY: Hypertension. Hyperlipidemia. Former smoker. COMPARISONS: No previous exams. MEASUREMENTS: Right Value Rt FOOD PREPARATION KITCHEN AIDE Dst PSV 94.00 cm/sec Rt Profunda Prx PSV 52.00 cm/sec Rt SFA Prx PSV 74.00 cm/sec Rt SFA Mid PSV 78.00 cm/sec Rt SFA Dst PSV 63.00 cm/sec Rt Pop Prx PSV 43.00 cm/sec Rt Pop Dst PSV 84.00 cm/sec Rt TP Trunk PSV 78.00 cm/s Rt Ant Tibial Prx PSV 55.00 cm/sec Rt Post Tibial Prx PSV 32.00 cm/sec Rt Post Tibial Mid PSV 0.00 cm/sec Rt Peroneal Prx PSV 80.00 cm/sec Rt Peroneal Mid PSV 43.00 cm/sec - FINDINGS: Right: Triphasic arteries include the right common femoral artery, profunda femoral artery, proximal superficial femoral artery, mid superficial femoral artery, distal superficial femoral artery, popliteal artery, tibeoperoneal trunk, anterior tibial artery, posterior tibial artery proximal and peroneal artery. There is occlusion of the right posterior tibial artery mid. There is dilatation of the right distal popliteal artery measuring 0.99 x 1.02 cm. CONCLUSION: 1. Right posterior tibial artery occluded. 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 Otherwise no flow-limiting stenosis identified. ATTESTATION: I have reviewed and interpreted the pertinent images and measurements of this study. I attest to the conclusions in the final report that is provided above. Electronically Signed By: MD VLADIMIR Gonzalez 04/15/2024 3:53:40 PM AIR VALUE TESTER Procedure Note Mirna Gomez MD - 04/15/2024 Vascular & Vein Surgery [address] [place] [address] Lower Extremity Arterial Duplex Report Patient Name: JOAQUIN BORRERO L : 1970 (54y 2m) Gender: M Study Date: 04/14/2024 08:07:07 AM Ht(Inch): Wt(Lb): BSA: Radio Station Audio Engineer: Location: [facility] Order Provider: MIRNA GOMEZ Quality: Adequate Ref Provider: MIRNA GOMEZ PROCEDURES: Arterial Report: A non-invasive vascular imaging study of the right lowerextremity arteries was performed using B-mode ultrasound, color flow, and spectralDoppler. INDICATIONS: S/P thromb Rt pop, TPT, BLENDING MACHINE OPERATOR & mao 02/19/24; S/P thromb Rt pop, TPT & PTA02/16/24. HISTORY: Hypertension. Hyperlipidemia. Former smoker. COMPARISONS: No previous exams. MEASUREMENTS: Right Value Rt FOOD PREPARATION KITCHEN AIDE Dst PSV 94.00 cm/sec Rt Profunda Prx PSV 52.00 cm/sec Rt SFA Prx PSV 74.00 cm/sec Rt SFA Mid PSV 78.00 cm/sec Rt SFA Dst PSV 63.00 cm/sec Rt Pop Prx PSV 43.00 cm/sec Rt Pop Dst PSV 84.00 cm/sec Rt TP Trunk PSV 78.00 cm/s Rt Ant Tibial Prx PSV 55.00 cm/sec Rt Post Tibial Prx PSV 32.00 cm/sec Rt Post Tibial Mid PSV 0.00 cm/sec Rt Peroneal Prx PSV 80.00 cm/sec Rt Peroneal Mid PSV 43.00 cm/sec - FINDINGS: Right: Triphasic arteries include the right common femoral artery,profunda femoral artery, proximal superficial femoral artery, mid superficial femoralartery, distal superficial femoral artery, popliteal artery, tibeoperoneal trunk,anterior tibial artery, posterior tibial artery proximal and peroneal artery. There isocclusion of the right posterior tibial artery mid. There is dilatation of the right distalpopliteal artery measuring 0.99 x 1.02 cm. CONCLUSION: 1. Right posterior tibial artery occluded. Right popliteal arteryaneurysms measuring 1 cm. Otherwise no flow-limiting stenosis identified. ATTESTATION: I have reviewed and interpreted the pertinent images and measurements ofthis study. I attest to the conclusions in the final report that is provided above. Electronically Signed By: Mirna Gomez MD B 04/15/2024 3:53:40 PM AIR VALUE TESTER Mirna Gomez MD IM US PROCEDURES Final Result * US MARIA VICTORIA (04/14/2024 9:47 AM AIR VALUE TESTER) LV EF % CONS SCIMAGE Anatomical Region Laterality Modality Vascular N/A Ultrasound 04/14/2024 7:55 AM AIR VALUE TESTER Narrative 04/15/2024 3:55 PM AIR VALUE TESTER Vascular & Vein Surgery [address] [facility] [address] Lower Extremity Arterial Doppler Report Patient Name: JOAQUIN BORRERO L : 1970 Study Date: 04/14/2024 7:55:00 AM Gender: M Radio Station Audio Engineer: Carmen Posada RVT Location: [facility] Ref Provider: MIRNA GOMEZ Quality: Adequate Order Provider: MIRNA GOMEZ PROCEDURES: Arterial Report: Ankle - Brachial Index Doppler exam. INDICATIONS: S/P thromb Rt pop, TPT, BLENDING MACHINE OPERATOR & mao 02/19/24; S/P thromb Rt pop, TPT & BLENDING MACHINE OPERATOR 02/16/24. HISTORY: Hypertension. Hyperlipidemia. Former smoker. COMPARISONS: No change compared to prior study. The previous exam was completed on 03/29/24. MEASUREMENTS: Right Value Left Value Rt Brachial Pressure 139 mmHg Lt Brachial Pressure 138 mmHg Rt BLENDING MACHINE OPERATOR Pressure 106 mmHg Lt BLENDING MACHINE OPERATOR Pressure 141 mmHg Rt DPA Pressure 101 mmHg Lt DPA Pressure 140 mmHg Rt PT MARIA VICTORIA Resting 0.76 Lt PT MARIA VICTORIA Resting 1.01 Rt DP MARIA VICTORIA Resting 0.73 Lt DP MARIA VICTORIA Resting 1.01 - FINDINGS: Right Posterior Tibial Artery Analysis: The posterior tibial waveform is monophasic. Right Anterior Tibial Artery Analysis: The anterior tibial waveform is triphasic. Left Posterior Tibial Artery Analysis: The posterior tibial waveform is biphasic. Left Anterior Tibial Artery Analysis: The anterior tibial waveform is triphasic. CONCLUSIONS: 1. Ankle-brachial index of 0.5-0.8 is consistent with claudication and a moderate occlusive arterial disease in the right lower extremity. 2. Ankle-brachial index of 0.9-1.3 is within normal limits in the left lower extremity. ATTESTATION: I have reviewed and interpreted the pertinent images and measurements of this study. I attest to the conclusions in the final report that is provided above. Electronically Signed By: Mirna Gomez MD [facility] 04/15/2024 3:54:04 PM AIR VALUE TESTER Procedure Note Mirna Gomez MD - 04/15/2024 Vascular & Vein Surgery [address] [place] [address] Lower Extremity Arterial Doppler Report Patient Name: JOAQUIN BORRERO L : 1970 Study Date: 04/14/2024 7:55:00 AM Gender: M Radio Station Audio Engineer: Carmen Posada RVT Location: [facility] Ref Provider: MIRNA GOMEZ Quality: Adequate Order Provider: MIRNA GOMEZ PROCEDURES: Arterial Report: Ankle - Brachial Index Doppler exam. INDICATIONS: S/P thromb Rt pop, TPT, BLENDING MACHINE OPERATOR & mao 02/19/24; S/P thromb Rt pop, TPT & PTA02/16/24. HISTORY: Hypertension. Hyperlipidemia. Former smoker. COMPARISONS: No change compared to prior study. The previous exam was completed on 03/29/24. MEASUREMENTS: Right Value Left Value Rt Brachial Pressure 139 mmHg Lt Brachial Pressure 138 mmHg Rt BLENDING MACHINE OPERATOR Pressure 106 mmHg Lt BLENDING MACHINE OPERATOR Pressure 141 mmHg Rt DPA Pressure 101 mmHg Lt DPA Pressure 140 mmHg Rt PT MARIA VICTORIA Resting 0.76 Lt PT MARIA VICTORIA Resting 1.01 Rt DP MARIA VICTORIA Resting 0.73 Lt DP MARIA VICTORIA Resting 1.01 - FINDINGS: Right Posterior Tibial Artery Analysis: The posterior tibial waveform is monophasic. Right Anterior Tibial Artery Analysis: The anterior tibial waveform is triphasic. Left Posterior Tibial Artery Analysis: The posterior tibial waveform is biphasic. Left Anterior Tibial Artery Analysis: The anterior tibial waveform is triphasic. CONCLUSIONS: 1. Ankle-brachial index of 0.5-0.8 is consistent with claudication and amoderate occlusive arterial disease in the right lower extremity. 2. Ankle-brachial index of 0.9-1.3 is within normal limits in the leftlower extremity. ATTESTATION: I have reviewed and interpreted the pertinent images and measurements ofthis study. I attest to the conclusions in the final report that is provided above. Electronically Signed By: Mirna Gomez MD [facility] 04/15/2024 3:54:04 PM AIR VALUE TESTER Mirna Gomez MD [facility] US PROCEDURES Final Result * US MARIA VICTORIA (03/29/2024 4:32 PM AIR VALUE TESTER) Anatomical Region Laterality Modality Vascular N/A Ultrasound 03/29/2024 Narrative 04/02/2024 7:16 AM AIR VALUE TESTER [employer] Job ID: [id number] [employer] Document ID: [id number] Dictated date/time: [id number] BILATERAL LOWER EXTREMITY ANKLE-BRACHIAL INDEX REASON FOR EXAM Peripheral vascular disease. FINDINGS ON THE RIGHT The right posterior tibial, dorsalis pedis have monophasic waveforms. The right ankle-brachial index is 0.80. FINDINGS ON THE LEFT The left ankle-brachial index is 1.01. The left posterior tibial, dorsalis pedis have triphasic waveforms. INTERPRETATION Left ankle-brachial is normal. Right ankle-brachial index is consistent with mild occlusive disease. Monophasic waveforms in the tibial vessels. Job ID/Internal Job ID: [id number] Xander Conde MD [facility] US PROCEDURES Final Re sult * US VEIN DUPLEX LOWER EXTREMITY RIGHT LIMITED, UNILATERAL (03/29/2024 4:28 PM AIR VALUE TESTER) Anatomical Region Laterality Modality Vascular Right Ultrasound 03/29/2024 Narrative 04/01/2024 3:59 PM AIR VALUE TESTER [employer] Job ID: [id number] [employer] Document ID: [id number] Dictated date/time: [id number] RIGHT LOWER EXTREMITY VENOUS DUPLEX REASON FOR EXAM Rule out deep vein thrombosis. FINDINGS ON THE RIGHT The right common femoral, femoral, popliteal, posterior tibial, peroneal, and great saphenous demonstrates spontaneous phasic flow. They augment and are compressible. INTERPRETATION No evidence of deep or superficial venous thrombosis in the right lower extremity. Job ID/Internal Job ID: [id number] us Xander Conde MD IMG US PROCEDURES Final Re sult * eGFR (03/29/2024 2:15 PM AIR VALUE TESTER) eGFR >90 >=60 mL/min/1. 73 m2 Comment: Interpretive Data Reference Interval Normal >/= 90 mL/min/1.73m2 Mildly decreased* 60 - 89 mL/min/1.73m2 Mildly to moderately decreased 45 - 59 mL/min/1.73m2 Moderately to severely decreased 30 - 44 mL/min/1.73m2 Severely decreased 15 - 29 mL/min/1.73m2 Kidney Failure < 15 mL/min/1.73m2 *Relative to young adult level Estimated glomerular filtration rate is determined by the 2020 CKD-EPI equation recommended by the National Kidney Foundation (A Unifying Approach to GFR Estimation: Recommendations of the NKF-ASK Task Force on Reassessing the Inclusion of Race in Diagnosing Kidney Disease, JASN 202). The CKD-EPI equation should not be used for patients with unstable renal function and has not been validated in children and those over 70. Current interpretive data was last reviewed 2021. Blood 03/29/2024 2:15 PM AIR VALUE TESTER 03/29/2024 2:18 PM AIR VALUE TESTER us Kira [facility] BLOOD ORDERABLES Final Resul t ANNIKA [id number] [facility] Department [place] [address] * Differential, auto (03/29/2024 2:15 PM AIR VALUE TESTER) Neutrophil abs 2.7 1.5 - 6.5 K/cumm Imm gran abs 0.0 0.0 - 0.1 K/cumm [facility] Lymphocyte abs 1.9 0.8 - 3.3 K/cumm [facility] Monocyte abs 0.5 0.2 - 0.8 K/cumm [facility] Eosinophil abs 0.2 0.0 - 0.5 K/cumm [facility] Basophil abs 0.1 0.0 - 0.1 K/cumm [facility] Neutrophil pct 49.5 % [facility] Comment: Interpretive Data Percent cell count reference ranges are not reported, since discordance with absolute values may lead to misinterpretation of CBC data. Current Interpretive Data was last revised on 2017. Imm gran pct 0.4 % [facility] Comment: Interpretive Data Percent cell count reference ranges are not reported, since discordance with absolute values may lead to misinterpretation of CBC data. Current Interpretive Data was last revised on 2017. Lymphocyte pct 35.8 % [facility] Comment: Interpretive Data Percent cell count reference ranges are not reported, since discordance with absolute values may lead to misinterpretation of CBC data. Current Interpretive Data was last revised on 2017. Monocyte pct 9.1 % [facility] Comment: Interpretive Data Percent cell count reference ranges are not reported, since discordance with absolute values may lead to misinterpretation of CBC data. Current Interpretive Data was last revised on 2017. Eosinophil pct 4.3 % [facility] Comment: Interpretive Data Percent cell count reference ranges are not reported, since discordance with absolute values may lead to misinterpretation of CBC data. Current Interpretive Data was last revised on 2017. Basophil pct 0.9 % [facility] Comment: Interpretive Data Percent cell count reference ranges are not reported, since discordance with absolute values may lead to misinterpretation of CBC data. Current Interpretive Data was last revised on 2017. Blood 03/29/2024 2:15 PM [employer] 03/29/2024 2:18 PM [employer] VAL[employer] TE[employer] us Kira HASSAN LAB BLOOD ORDERABLES Final Resul t ANNIKA [address] [address] * CBC with auto differential (03/29/2024 2:15 PM AIR VAL[employer] TE[employer]) [facility] WBC 5.4 3.8 - 9.9 K/cumm Hgb 15.5 13.0 - 17.5 g/dL [facility] Hct 48.0 38.9 - 50.3 % [facility] Plt 300 150 - 400 K/cumm [facility] MPV 9.5 9.1 - 12.3 fL [facility] RBC 5.20 4.30 - 5.80 M/cumm [facility] MCV 92.3 81.3 - 96.4 fL [facility] MCH 29.8 27.1 - 33.3 pg [facility] MCHC 32.3 32.3 - 35.7 g/dL [facility] RDW CV 13.2 11.1 - 14.9 % [facility] RDW SD 45.0 35.7 - 48.1 fL [facility] NRBC abs 0.00 0.00 - 0.01 K/cumm [facility] Blood 03/29/2024 2:15 PM [employer] 03/29/2024 2:18 PM [employer] Clutter LAB BLOOD ORDERABLES Final Resul t Performing Organization Address [facility] Co de Phone Number [address] [address] * aPTT (03/29/2024 2:15 PM AIR VAL[employer] TESTER) [facility] aPTT 25 22 - 37 sec Comment: Interpretive data aPTT test has not been evaluated for monitoring heparin therapy. The anti-Xa is the preferred test. Current interpretive data was last revised on 2019. Blood 03/29/2024 2:15 PM [employer] 03/29/2024 2:18 PM [employer] us [employer] [place] LAB BLOOD ORDERABLES Final Resul t Performing Organization Address City/[facility]/ZIP Co de Phone Number [address] [address] * Protime-INR (03/29/2024 2:15 PM AIR VALUE TESTER) PT 12.1 12.0 - 14.6 sec INR 0.9 0.9 - 1.2 [facility] Comment: Ref Range High Interpretive data Oral anticoagulant therapeutic ranges: Venous thromboembolism prophylaxis or treatment: 2.0-3.0 CARDIOLOGY Standard range: 2.0-3.0 High-intensity range: 2.5-3.5 Refer to indication-specific guidelines for appropriate target ranges for prosthetic heart valve replacement. Current interpretive data was last revised on 2019. Blood 03/29/2024 2:15 PM [employer] 03/29/2024 2:18 PM [employer] VAL[employer] TE[employer] us Kira HASSAN LAB BLOOD ORDERABLES Final Resul t [facility] [address] [facility] Department [place] [address] * (ABNORMAL) Comprehensive metabolic panel (03/29/2024 2:15 PM [employer] VAL[employer] TE[employer]) Sodium 132(L) 135 - 145 mmol/L Potassium, pl See Comment 3.3 - 4.9 [facility] Comment:Credited; Hemolyzed Specimen Chloride 102 97 - 110 mmol/L [facility] CO2 See Comment 22 - 32 [facility] Comment:Credited; Hemolyzed Specimen Anion gap See Comment 2 - 15 [facility] Comment:Credited; Hemolyzed Specimen BUN 15 6 - 25 mg/dL [facility] Creatinine 0.86 0.80 - 1.30 mg/dL [facility] Glucose 94 70 - 199 mg/dL [facility] Comment: Interpretive Data Fasting glucose >/= 126 mg/dl is diagnostic for diabetes. Fasting is defined as no caloric intake for at least 8 hours. Fasting glucose between 100 mg/dl to 125 mg/dl is diagnostic of prediabetes. In a patient with classic symptoms of hyperglycemia or hyperglycemic crisis, a random glucose >/= 200 mg/dl is diagnostic for diabetes. In the absence of unequivocal hyperglycemia, results should be confirmed by repeat testing. The classification and Diagnosis of Diabetes Diabetes Care 202; 46: S19-S40. Current interpretive data was last revised 2022. Calcium 9.4 8.5 - 10.3 mg/dL ANNIKA Bilirubin, total 0.3 0.1 - 1.2 mg/dL [facility]NI[facility] Protein, pl See Comment 6.5 - 8.5 [facility] Comment:Credited; Hemolyzed Specimen Albumin 4.2 3.5 - 5.0 g/dL ANNIKA Alk phos See Comment 40 - 130 [facility] Comment:Credited; Hemolyzed Specimen ALT See Comment 7 - 55 [facility]NIKA Comment:Credited; Hemolyzed Specimen AST See Comment 10 - 50 [facility]NIKA Comment:Credited; Hemolyzed Specimen Blood 03/29/2024 2:15 PM [employer] 03/29/2024 2:18 PM [employer] VAL[employer] TE[employer] us Kira HASSAN LAB BLOOD ORDERABLES Final Resul t ANNIKA [address] [facility] Department [place] [address] from Last 3 Months Insurance [facility] CHOICE OOS [facility] [employer] CHOICE OOS Advance Directives For more information, please contact: [phone] * Full Code (Latest Code Status on File) Date Activated Date Inactivated Comments 02/19/2024 2:31 PM 02/21/2024 6:16 PM * Full Code Date Activated Date Inactivated Comments 02/12/2024 11:00 PM 02/19/2024 2:31 PM 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 [address] [place] [address] [place] [id number] PCP - General Family Medicine 02/23/24
--- OUTSIDE RECORDS SUMMARY | 2024-06-07 08:35 | XMS_ITS | Encounter Summary ---
Author Name [facility] Organization [facility] Address [address] [place] [address] Care Team Providers Care Equipment Detailer Name Role Phone SWATI SCHWARTZ Primary Care [...] (PPO) HIGHM ARK BCBS Mar 31, 2015 [id number] [phone] DARION QUEEN BROOK PATIENT ANTHEM [employer] [place] PREFERRED PROVIDER ORGANIZAT ION (PPO) H[employer]HM ARK [employer] Mar 31, 2015 [id number] [phone] DARION QUEEN BROOK PATIENT [employer] ([employer]) PRESCRIPT ION REP WAGE Mar 31, 2004 [id number] [phone] PREMA QUEEN PATIENT Selected Encounter This section includes the information on record at OR for the Encounter. Date/Time Encounter Type Encounter Description Reason Provider Source Feb 16, 2024 05:56 PM Outpatient Encounter GENERAL INTERNAL MEDICINE TAMIKA SLATER E Encounter Template Text not used by [facility] Plan of Treatment: Future Appointments (+ 6 months) and Future Tests (+/- 45 days) The Plan of Treatment section includes future care activities for the patient from all OR treatmentfacilities. This section includes future appointments and future orders which are active, pending or scheduled. Future Appointments This section includes appointments that were scheduled to occur 6 months from the date of the Encounter, up to a maximum of 20 appointments. The data comes from all OR treatment facilities. Appointment Date/Time Appointment Type Appointme nt Facility Name May 19, 2024 09:00 AM AMBULATORY - MEDICINE [facility] Lab Results: +/- 30 days of the encounter This section includes the Chemistry and Hematology Lab Results on record with OR for the patient. Radiology Reports and Pathology Reports are provided separately, in subsequent sections. Lab Results This section contains the Chemistry/Hematology Results that were resulted 30 days before or 30 daysafter the date of the Encounter. Date/Time Source Result Type Result - Unit Interpretation Reference Range Comment Feb 05, 2024 12:00 PM [facility] OCCULT BLOOD FIT X1 SCREEN (MFP ONLY) Specimen Type: FECES No comment entered. Ordering Provider: PAVAN SCHWARTZ Report Released Date/Time: Dec 22, 2023 11:57 AM Reporting Lab: [facility] [address] [facility] [place] [id number] Performing Lab: [facility] [address] [place] [id number] OCCULT BLOOD (FIT) #1 OF 1 Negative Negative Social History: Smoking Status (Most current) and Tobacco Use (All prior to encounter date) This section includes the most current, and the historical, smoking and tobacco- related health factors from the OR facility where the Encounter took place. Current Smoking Status This section includes the most current smoking, or tobacco-related health factor, from the OR facility where the Encounter took place. Date/Time Current Smoking Status Comment Charly capps Oct 09, 2020 04:02 PM VA-TOBACCO USER EVERY DAY [facility] Tobacco Use History This section includes a history of the smoking, or tobacco-related health factors, that were collected on or before the date of the Encounter. The data comes from the OR facility where the Encounter took place. Date/Time Smoking Status/Tobacco Use Comment F acility Oct 09, 2020 04:02 PM VA-TOBACCO USE > 1 5 LESS THAN 30 YEARS [facility] Oct 09, 2020 04:02 PM VA-TOBACCO USE ADVICE [facility] Oct 09, 2020 04:02 PM VA-TOBACCO USE COLD MEAT COOK NO [facility] Oct 09, 2020 04:02 PM VA-TOBACCO USE MED NO [facility] Oct 09, 2020 04:02 PM VA-TOBACCO USER EVERY DAY [facility] Encounter Notes: All associated encounter notes This section contains the clinical notes associated to the Encounter. Date/Time Encounter Note(s) Provider Source Feb 23, 2024 10:21 AM ADDENDUM: LOCAL TITLE: Addendum STANDARD TITLE: ADDENDUM DATE OF NOTE: FEB 23, 2024@10:21:38 ENTRY DATE: FEB 23, 2024@10:21:38 AUTHOR: MARIE BURROWS COSIGNER: URGENCY: STATUS: COMPLETED Discharge Disposition Date of discharge: Jan Disposition Discharge to home Records received for this EOC; sent to [facility] for scanning and shared securely with OR PCP Team. The below is an excerpt from the discharge summary (final attending note if no DC summary available): Hospital Course: This is 54-year-old male with past medical history of hyperlipidemia, PTSD presented to emergency room complaint of right lower extremity pain and paresthesia. Patient is a retired [employer] states that he was PTSD has been taking his medications and hyperlipidemia he denies any smoking drinking recreational drugs however for the last past few weeks he has been having increasing pain and paresthesias in the right lower extremities from his knee to the toes. He states he was seen outpatient at [facility] and was told to come to [facility] ED for suspected peripheral artery disease. Patient had a U/S Doppler that is in chart over there. Patient denies being on aspirin or any anticoagulation only medications he takes for his cholesterol levels and his PTSD. During HPI he does admit though that his leg has been increasingly painful especially when he is walking around he states that when he can walk from his car to the building door he begins to experience extreme pain and swelling in his calf muscle he feels like as though his calf is going to explode. He rates the pain a 10/10 no associated symptoms besides the paresthesias review of systems is negative for any fever chills nausea vomiting diarrhea chest pain palpitations lower extremity swelling syncope dizziness gait instability urinary symptoms. In the emergency department vitals were within normal limits except for blood pressure 133/115 patient is afebrile satting 99% on room air comprehensive metabolic panel is within normal limits creatinine kinase is 738 CBC is within normal limits EGFR is within normal limits. CTA Abdominal Aorta Runoff reveals Occlusion of the right popliteal artery at the knee. Apparent reconstitution of the mid anterior tibial and peroneal arteries with 2 vessel runoff at the ankle. No large vessel occlusion or high-grade stenosis within the left lower extremity. Case discussed with vascular surgery agreed to see patient in the morning. on heparin drip and IV analgesics as needed we will keep patient NPO. Patient evaluated by vascular surgery. Underwent several stage procedure as noted below. Details from my progress note performed by me earlier this morning are as follows: Right lower extremity occlusion of right popliteal artery 02/15: angiogram with mechanical thrombectomy of right popliteal artery and right tibioperoneal trunk and posterior tibial arteries, placement of catheter with thrombolytics 02/16: exchange of the infusion catheter, mechanical thrombectomy right popliteal artery, right peroneal artery, right posterior tibial artery 02/17: removal of lytic catheter and follow up right LE angiogram which revealed persistent occlusion of the tibial arteries 02/18: popliteal artery thrombectomy with patch angioplasty popliteal artery, tibioperoneal trunk posterior tibial and peroneal artery thrombectomy through separate arteriotomy with patch angioplasty tibioperoneal trunk. Patient was transferred out of intensive care unit yesterday 02/20/2024. Patient is currently on IV heparin drip. Monitor for any bleeding while patient is on heparin drip Awaiting on further recommendation by vascular surgery. Will plan to transition to oral anticoagulation therapy: Okay with vascular surgery. Patient is seen by vascular surgery earlier this morning: Plan to transition to oral anticoagulation therapy. Patient was started on Eliquis prior to discharge. Patient has been cleared by vascular surgery for discharge with outpatient follow up. Liver lesion: Incidental finding noted on CTA, outpatient liver protocol MRI is recommended=> patient is aware and will make appointment with his primary care physician for MRI of liver as outpatient. Called patient on his phone to discuss this with his PCP to get an MRI of liver. Leukocytosis: Resolved white count 9.5 Chronic anemia: Hemoglobin is relatively stable for last 48 hours or so 9.5 Monitor for any bleeding while patient is on heparin drip. Hyperlipidemia: Continue statin PTSD: Continue Wellbutrin. Please schedule an appointment with the following provider(s): [facility] at [address] [facility] [id number] Schedule an appointment as soon as possible for a visit in 2 week(s) The following postacute care recommendations have been identified: as above Further postacute care/referrals may be indicated. PCP, please review entire DC summary for any further needs. Please place consults as warranted to avoid non-payment of follow-up services. Alerting PCP team to this note for continuity of care. EOC complete. Postacute care resulting from this episode of care is NOT COVERED under this Auth Number, and must be preauthorized via consult. PCP - please review full DC summary at the time of discharge, and place any consults deemed appropriate to avoid non-payment for recommended services. /bhaskar/ MARIE BURROWS REGISTERED NURSE Signed: 02/23/2024 10:25 Receipt Acknowledged By: 02/23/2024 10:38 /es/ COLBY NIELSEN- NURSE PRACTITIONER 02/23/2024 14:33 /es/ LALY CHAU, RN, BSN Registered Nurse --- Original Document --- 02/12/24 [facility] PRESENTING CARE COORD PLAN 657 STL: Emergency Notification Intake Date Presenting to the Facility: Jan Method of Contact: Notified from [facility] worklist Notification ID: [id number] [facility] Referral #: [id number] [place] [facility] [place] [facility] Address: City: [place] State: [place] Chief complaint: pain and paresthesia RLE. No injury/trauma. Suspect PAD. Disposition Admitted Route of Admission: ER Date of Admission: Jan Admitting Diagnosis: peripheral artery disease Alerting PCP team to this note for continuity of care. Records relevant to this episode of care may be found in [facility]. The patient is currently hospitalized as of 02/16/24. Per most recent progress note: Right popliteal artery occlusion HLD/Hypertriglyceridemia Depression PTSD Prediabetes- A1C 5.7% Elevated CK- resolving Mildly elevated transaminases Family history of cardiac deaths in the 50s- father and PGF CTA Abdominal aorta & Bilateral iliofemoral runoff: There is occlusion of the popliteal artery at the knee without reconstitution due to noncalcified plaque. Vascular surgery on board with plans for angiogram +/- thrombectomy on 02/16/24 Continue heparin gtt Continue prn analgesics Continue neurovascular checks Continue bupropion Continue Lipitor 10 mg dly. LDL is 55. Patient will need to be on aspirin on discharge for ASCVD secondary prevention Continue monitoring on telemetry for embolism- no arrhythmias so far, in NSR TTE completed - low-normal LVEF 50-50%, mild MR, Borderline dilated ascending aorta, no RWMA, no LV thrombus Cardiology consult was requested by the vascular surgeon, patient optimized for leg procedure. /bhaskar/ Tamika Slater MSN, RN V15 [facility] Signed: 02/16/2024 18:01 Receipt Acknowledged By: 02/17/2024 08:41 /es/ COLBY NIELSEN- NURSE PRACTITIONER 02/20/2024 10:21 /bhaskar/ LALY CHAU, RN, BSN Registered Nurse 02/19/2024 ADDENDUM STATUS: COMPLETED CONTINUED STAY REVIEW Contact Date: Jan Inpatient level of care required: Surgical Records relevant to this episode of care reviewed. Patient is currently hospitalized. Excerpt from most recent progress note: 1. Assessment: 54 y/o active, healthy man HD#4 acute R popliteal artery occlusion, etiology unknown. Plan: Proceed with right popliteal and tibial thrombectomy. Procedure indications and all associated risks have been explained to the patient. He voiced understanding and agrees to proceed. Chief complaint: R leg pain; acute thrombus R popliteal artery Events Over Last 24 Hours: No change overnight. Access site is soft left groin. Right foot is warm monophasic signals. Anticipated postacute care needs: VASC F/U, OTHER PENDING CLINICAL COURSE Alerting PCP team to this note for continuity of care. [facility] team has also been alerted to this continuing stay via BMS. /bhaskar/ MARIE BURROWS REGISTERED NURSE Signed: 02/19/2024 13:58 Receipt Acknowledged By: 02/20/2024 08:49 /MAGGI Chiang NURSE PRACTITIONER 02/19/2024 14:39 /bhaskar/ LALY CHAU RN, BSN Registered Nurse MARIE BURROWS [facility] Feb 19, 2024 01:56 PM ADDENDUM: LOCAL TITLE: Addendum STANDARD TITLE: ADDENDUM DATE OF NOTE: FEB 19, 2024@13:56:54 ENTRY DATE: FEB 19, 2024@13:56:55 AUTHOR: MARIE BURROWS EXP COSIGNER: URGENCY: STATUS: COMPLETED CONTINUED STAY REVIEW Contact Date: Jan Inpatient level of care required: Surgical Records relevant to this episode of care reviewed. Patient is currently hospitalized. Excerpt from most recent progress note: 1. Assessment: 54 y/o active, healthy man HD#4 acute R popliteal artery occlusion, etiology unknown. Plan: Proceed with right popliteal and tibial thrombectomy. Procedure indications and all associated risks have been explained to the patient. He voiced understanding and agrees to proceed. Chief complaint: R leg pain; acute thrombus R popliteal artery Events Over Last 24 Hours: No change overnight. Access site is soft left groin. Right foot is warm monophasic signals. Anticipated postacute care needs: VASC F/U, OTHER PENDING CLINICAL COURSE Alerting PCP team to this note for continuity of care. [facility] team has also been alerted to this continuing stay via BMS. /bhaskar/ MARIE BURROWS REGISTERED NURSE Signed: 02/19/2024 13:58 Receipt Acknowledged By: 02/20/2024 08:49 /MAGGI Chiang NURSE PRACTITIONER 02/19/2024 14:39 /bhaskar/ LALY CHAU RN, BSN Registered Nurse --- Original Document --- 02/12/24 [facility] PRESENTING CARE COORD PLAN 657 STL: Emergency Notification Intake Date Presenting to the Facility: Jan Method of Contact: Notified from [facility] worklist Notification ID: [id number] [facility] Referral #: [id number] [place] [facility] [place] [facility] Address: City: [place] State: [place] Chief complaint: pain and paresthesia RLE. No injury/trauma. Suspect PAD. Disposition Admitted Route of Admission: ER Date of Admission: Jan Admitting Diagnosis: peripheral artery disease Alerting PCP team to this note for continuity of care. Records relevant to this episode of care may be found in [facility]. The patient is currently hospitalized as of 02/16/24. Per most recent progress note: Right popliteal artery occlusion HLD/Hypertriglyceridemia Depression PTSD Prediabetes- A1C 5.7% Elevated CK- resolving Mildly elevated transaminases Family history of cardiac deaths in the 50s- father and PGF CTA Abdominal aorta & Bilateral iliofemoral runoff: There is occlusion of the popliteal artery at the knee without reconstitution due to noncalcified plaque. Vascular surgery on board with plans for angiogram +/- thrombectomy on 02/16/24 Continue heparin gtt Continue prn analgesics Continue neurovascular checks Continue bupropion Continue Lipitor 10 mg dly. LDL is 55. Patient will need to be on aspirin on discharge for ASCVD secondary prevention Continue monitoring on telemetry for embolism- no arrhythmias so far, in NSR TTE completed - low-normal LVEF 50-50%, mild MR, Borderline dilated ascending aorta, no RWMA, no LV thrombus Cardiology consult was requested by the vascular surgeon, patient optimized for leg procedure. /bhaskar/ Tamika Slater MSN, RN V15 [facility] Signed: 02/16/2024 18:01 Receipt Acknowledged By: 02/17/2024 08:41 /bhaskar/ SWATI SCHWARTZ, ANP- NURSE PRACTITIONER * AWAITING SIGNATURE * LALY CHAU GRETCHEN J [facility] Feb 12, 2024 05:56 PM NONVA NOTE: LOCAL TITLE: [facility] PRESENTING CARE COORD PLAN STANDARD TITLE: NONVA NOTE DATE OF NOTE: FEB 12, 2024@17:56 ENTRY DATE: FEB 16, 2024@17:56:53 AUTHOR: TAMIKA SLATER EXP COSIGNER: URGENCY: STATUS: COMPLETED [facility] PRESENTING CARE COORD PLAN [address] Has ADDENDA Emergency Notification Intake Date Presenting to the Facility: Jan Method of Contact: Notified from [facility] worklist Notification ID: [id number] [facility] Referral #: [id number] [place] [facility] [place] [facility] Address: City: [place] State: [place] Chief complaint: pain and paresthesia RLE. No injury/trauma. Suspect PAD. Disposition Admitted Route of Admission: ER Date of Admission: Jan Admitting Diagnosis: peripheral artery disease Alerting PCP team to this note for continuity of care. Records relevant to this episode of care may be found in [facility]. The patient is currently hospitalized as of 02/16/24. Per most recent progress note: Right popliteal artery occlusion HLD/Hypertriglyceridemia Depression PTSD Prediabetes- A1C 5.7% Elevated CK- resolving Mildly elevated transaminases Family history of cardiac deaths in the 50s- father and PGF CTA Abdominal aorta & Bilateral iliofemoral runoff: There is occlusion of the popliteal artery at the knee without reconstitution due to noncalcified plaque. Vascular surgery on board with plans for angiogram +/- thrombectomy on 02/16/24 Continue heparin gtt Continue prn analgesics Continue neurovascular checks Continue bupropion Continue Lipitor 10 mg dly. LDL is 55. Patient will need to be on aspirin on discharge for ASCVD secondary prevention Continue monitoring on telemetry for embolism- no arrhythmias so far, in NSR TTE completed - low-normal LVEF 50-50%, mild MR, Borderline dilated ascending aorta, no RWMA, no LV thrombus Cardiology consult was requested by the vascular surgeon, patient optimized for leg procedure. /bhaskar/ Tamika Slater MSN, RN V15 [facility] Signed: 02/16/2024 18:01 Receipt Acknowledged By: 02/17/2024 08:41 /bhaskar/ SWATI SCHWARTZ, ANP- NURSE PRACTITIONER 02/20/2024 10:21 /bhaskar/ LALY CHAU, RN, BSN Registered Nurse 02/19/2024 ADDENDUM STATUS: COMPLETED CONTINUED STAY REVIEW Contact Date: Jan Inpatient level of care required: Surgical Records relevant to this episode of care reviewed. Patient is currently hospitalized. Excerpt from most recent progress note: 1. Assessment: 54 y/o active, healthy man HD#4 acute R popliteal artery occlusion, etiology unknown. Plan: Proceed with right popliteal and tibial thrombectomy. Procedure indications and all associated risks have been explained to the patient. He voiced understanding and agrees to proceed. Chief complaint: R leg pain; acute thrombus R popliteal artery Events Over Last 24 Hours: No change overnight. Access site is soft left groin. Right foot is warm monophasic signals. Anticipated postacute care needs: VASC F/U, OTHER PENDING CLINICAL COURSE Alerting PCP team to this note for continuity of care. [facility] team has also been alerted to this continuing stay via BMS. /es/ MARIE BURROWS REGISTERED NURSE Signed: 02/19/2024 13:58 Receipt Acknowledged By: 02/20/2024 08:49 /bhaskar/ COLBY NIELSEN- NURSE PRACTITIONER 02/19/2024 14:39 /es/ LALY CHAU RN, BSN Registered Nurse 02/23/2024 ADDENDUM STATUS: COMPLETED Discharge Disposition Date of discharge: Jan Disposition Discharge to home Records received for this EOC; sent to [facility] for scanning and shared securely with OR PCP Team. The below is an excerpt from the discharge summary (final attending note if no DC summary available): Hospital Course: This is 54-year-old male with past medical history of hyperlipidemia, PTSD presented to emergency room complaint of right lower extremity pain and paresthesia. Patient is a retired [employer] states that he was PTSD has been taking his medications and hyperlipidemia he denies any smoking drinking recreational drugs however for the last past few weeks he has been having increasing pain and paresthesias in the right lower extremities from his knee to the toes. He states he was seen outpatient at [facility] and was told to come to [facility] ED for suspected peripheral artery disease. Patient had a U/S Doppler that is in chart over there. Patient denies being on aspirin or any anticoagulation only medications he takes for his cholesterol levels and his PTSD. During HPI he does admit though that his leg has been increasingly painful especially when he is walking around he states that when he can walk from his car to the building door he begins to experience extreme pain and swelling in his calf muscle he feels like as though his calf is going to explode. He rates the pain a 10/10 no associated symptoms besides the paresthesias review of systems is negative for any fever chills nausea vomiting diarrhea chest pain palpitations lower extremity swelling syncope dizziness gait instability urinary symptoms. In the emergency department vitals were within normal limits except for blood pressure 133/115 patient is afebrile satting 99% on room air comprehensive metabolic panel is within normal limits creatinine kinase is 738 CBC is within normal limits EGFR is within normal limits. CTA Abdominal Aorta Runoff reveals Occlusion of the right popliteal artery at the knee. Apparent reconstitution of the mid anterior tibial and peroneal arteries with 2 vessel runoff at the ankle. No large vessel occlusion or high-grade stenosis within the left lower extremity. Case discussed with vascular surgery agreed to see patient in the morning. on heparin drip and IV analgesics as needed we will keep patient NPO. Patient evaluated by vascular surgery. Underwent several stage procedure as noted below. Details from my progress note performed by me earlier this morning are as follows: Right lower extremity occlusion of right popliteal artery 02/15: angiogram with mechanical thrombectomy of right popliteal artery and right tibioperoneal trunk and posterior tibial arteries, placement of catheter with thrombolytics 02/16: exchange of the infusion catheter, mechanical thrombectomy right popliteal artery, right peroneal artery, right posterior tibial artery 02/17: removal of lytic catheter and follow up right LE angiogram which revealed persistent occlusion of the tibial arteries 02/18: popliteal artery thrombectomy with patch angioplasty popliteal artery, tibioperoneal trunk posterior tibial and peroneal artery thrombectomy through separate arteriotomy with patch angioplasty tibioperoneal trunk. Patient was transferred out of intensive care unit yesterday 02/20/2024. Patient is currently on IV heparin drip. Monitor for any bleeding while patient is on heparin drip Awaiting on further recommendation by vascular surgery. Will plan to transition to oral anticoagulation therapy: Okay with vascular surgery. Patient is seen by vascular surgery earlier this morning: Plan to transition to oral anticoagulation therapy. Patient was started on Eliquis prior to discharge. Patient has been cleared by vascular surgery for discharge with outpatient follow up. Liver lesion: Incidental finding noted on CTA, outpatient liver protocol MRI is recommended=> patient is aware and will make appointment with his primary care physician for MRI of liver as outpatient. Called patient on his phone to discuss this with his PCP to get an MRI of liver. Leukocytosis: Resolved white count 9.5 Chronic anemia: Hemoglobin is relatively stable for last 48 hours or so 9.5 Monitor for any bleeding while patient is on heparin drip. Hyperlipidemia: Continue statin PTSD: Continue Wellbutrin. Please schedule an appointment with the following provider(s): [facility] Vascular at [address] [facility] [address] Schedule an appointment as soon as possible for a visit in 2 week(s) The following postacute care recommendations have been identified: as above Further postacute care/referrals may be indicated. PCP, please review entire DC summary for any further needs. Please place consults as warranted to avoid non-payment of follow-up services. Alerting PCP team to this note for continuity of care. EOC complete. Postacute care resulting from this episode of care is NOT COVERED under this Auth Number, and must be preauthorized via consult. PCP - please review full DC summary at the time of discharge, and place any consults deemed appropriate to avoid non-payment for recommended services. /bhaskar/ MARIE BURROWS REGISTERED NURSE Signed: 02/23/2024 10:25 Receipt Acknowledged By: * AWAITING SIGNATURE * SWATI SCHWARTZ * AWAITING SIGNATURE * LALY CHAU [facility]EVIN L [facility]
--- OUTSIDE RECORDS SUMMARY | 2024-06-07 08:35 | XMS_ITS | Referral Summary ---
Author Organization [facility] [address] [facility] Address [address] [place] [address] Care Team Providers Care Public Health Staff Nurse Name Role Phone Pinky Zhu Primary Care Provider [phone] Encounters Date Type Department Care Team Description 06/01/2024 Telephone [place] [id number] [facility] Floor [address] [place] [address] Denisse Meehan RMA 04/16/2024 Telephone [facility] at [address] [address] Kiley Marin MA 04/14/2024 Orders Only [facility] at [address] [address] Mirna Gomez MD Aftercare following surgery of the circulatory system (Primary Dx); Popliteal artery occlusion, right 04/14/2024 8:00 AM PATIENT SVCS MGR Ancillary Procedure [facility] and Vein Surgery at [address] [address] Aftercare following surgery of the circulatory system 04/14/2024 9:00 AM PATIENT SVCS MGR Office Visit [facility] at [address] [address] Mirna Gomez MD Popliteal artery occlusion, right (Primary Dx); Hypertriglyceridemia ; Mixed hyperlipidemia; Primary hypertension 04/14/2024 8:00 AM PATIENT SVCS MGR Ancillary Procedure [facility] Vein Surgery at [address] [address] Aftercare following surgery of the circulatory system 03/29/2024 4:37 PM PATIENT SVCS MGR - 03/29/2024 5:12 PM PATIENT SVCS MGR Emergency [facility] [address] [place] [address] Xander Conde MD Right leg pain (Primary Dx); Acute low back pain with right-sided sciatica, unspecified back pain laterality Discharge Disposition: Discharge to home or self care 03/27/2024 Patient Self-Triage [facility] [address] [place] [address] Mychart, Generic Provider 03/11/2024 Orders Only [facility] Medical [facility] Vascular and Vein Surgery [address] [facility] [address] [place] [phone] Mirna Gomez MD Aftercare following surgery of the circulatory system (Primary Dx) 03/10/2024 Orders Only [facility] Vascular at [address] [place] [address] Mirna Gomez MD Aftercare following surgery of the circulatory system 03/10/2024 8:30 AM PATIENT SVCS MGR Office Visit [facility] Vascular at [address] [place] [address] Mirna Gomez MD Popliteal artery occlusion, right (Primary Dx) from Last 3 Months Allergies No known active allergies Medications atorvastatin [...] 04/14/2024 Assessment & Plan (04/14/2024 9:06 AM PATIENT SVCS MGR): Stable continue lisinopril Popliteal artery occlusion, right 02/13/2024 Assessment & Plan (04/14/2024 9:05 AM PATIENT SVCS MGR): Status post catheter directed thrombolysis an open thrombectomy by Colin Gomez MD. MARIA VICTORIA now at 0.7 2.8 [id number] disease. Continue anticoagulation. Noninvasives testing in 6 months. Hematology appointment May. Assessment & Plan (03/12/2024 10:49 AM PATIENT SVCS MGR): Right lower extremity acute limb ischemia status post lysis, aspiration thrombectomy with conversion to open thrombectomy by Colin Gomez MD. we will get baseline noninvasive testing. Continue HLD and Eliquis. Referral sent to hematology Hypertriglyceridemia 02/13/2024 Assessment & Plan (04/14/2024 9:05 AM PATIENT SVCS MGR): Stable continue Lipitor Major depressive disorder 02/12/2024 Hyperlipidemia 02/12/2024 PTSD (post-traumatic stress disorder) 02/12/2024 PAD (peripheral artery disease) 02/12/2024 Pain in shoulder 07/07/2015 Social History Tobacco Use Types Packs/Day Years Used Date Smoking Tobacco: Former Cigarettes 0.3 34 1 9 - 2022 Tobacco Cessation:Counseling Given: Not Answered [facility] Utilities Answer Date Recorded In the past 12 months has th [employer] electric, gas, oil, or water company threatened [...] week 02/13/2024 How often do you attend chur ch or evangelical services? Never 02/13/2024 Do you belong to any clubs o r organizations such as hoahaoism groups, unions, fraternal or athletic groups, or [...] any time in the past 12 m [facility], were you homeless or living in a [place] health care facility (including now)? No 02/13/2024 Personal Safety Answer Date Recorded Have you ever been in or are you currently in a harmful physical or emotional relationship or is someone making you feel afraid or unsafe? Denies 03/29/2024 Sex and Gender Information Value Date Recorded Sex Assigned at Not on file Legal Sex Male 10:55 AM PATIENT SVCS MGR Gender Identity Not on file Sexual Orientation Not on file Last Filed Vital Signs Vital Sign Reading Time Taken Comments Blood Pressure 134/93 04/14/2024 8:43 AM PATIENT SVCS MGR Pulse 60 04/14/2024 8:43 AM PATIENT [facility]CS MGR Temperature 36.8 C (98.3 F) 03/29/2024 10:49 AM PATIENT SVCS MGR Respiratory Rate 23 03/29/2024 5:05 PM PATIENT SVCS MGR Oxygen Saturation 99% 04/14/2024 8:43 AM PATIENT SVCS MGR Inhaled Oxygen Concentration - - Weight 72.1 kg (159 lb) 04/14/2024 8:43 AM PATIENT SVCS MGR Height 165.1 cm (5' 5 ) 04/14/2024 8:43 AM PATIENT SVCS MGR Body Mass Index 26.46 04/14/2024 8:43 AM PATIENT SVCS MGR Plan of Treatment Not on file Medical Devices Implanted Type Area Soft Work Wrapper Examiner Device Identifier Shelf Expiration Date Model / Serial / Lot [employer] Vascular System Closure Repair Femoral Artery Suture Mediated Perclose Prostyle 46216-06 - [id number] Implanted:Qty: 1 on 02/18/2024 by Colin Gomez MD at [facility] [employer] 10/28/2025 [id number] / / [id number] Bragster Patch Vascuguard 0.88cm [id number] - [id number] Implanted:Qty: 1 on 02/19/2024 by Colin Gomez MD at [facility] Right: Popleteal Artery Powell Mersive [id number] 09/14/2025 [id number] / / [id number] Description:Patch to poplite al artery and TP trunk Procedures Procedure Name Priority Date/Time Associated Diagnosis Comments US ARTERIAL DUPLEX LOWER EXTREMITY RIGHT LIMITED Schedule Routine, Read Routine (OP Routine) 04/14/2024 9:47 AM PATIENT SVCS MGR Aftercare following surgery of the circulatory system US MARIA VICTORIA Schedule Routine, Read Routine (OP Routine) 04/14/2024 9:47 AM PATIENT SVCS MGR Aftercare following surgery of the circulatory system US MARIA VICTORIA ED 03/29/2024 4:32 PM PATIENT SVCS MGR US VEIN DUPLEX LOWER EXTREMITY RIGHT LIMITED ED 03/29/2024 4:28 PM PATIENT SVCS MGR EGFR STAT 03/29/2024 2:15 PM PATIENT SVCS MGR DIFFERENTIAL AUTO STAT 03/29/2024 2:1 5 PM PATIENT SVCS MGR APTT STAT 03/29/2024 2:15 PM PATIENT SVCS MGR PROTIME-INR STAT 03/29/2024 2:15 PM PATIENT SVCS MGR CBC WITH AUTO DIFFERENTIAL STAT 03/29/2024 2:15 PM PATIENT SVCS MGR COMPREHENSIVE METABOLIC PANEL STAT 03/29/2024 2:15 PM PATIENT SVCS MGR from Last 3 Months Results * US Arterial Duplex Lower Extremity Right Limited (04/14/2024 9:47 AM PATIENT SVCS MGR) LV EF % CONS SCIMAGE Anatomical Region Laterality Modality Vascular Right Ultrasound 04/14/2024 8:07 AM PATIENT SVCS MGR Narrative 04/15/2024 3:54 PM PATIENT [facility]CS MGR Vascular & Vein Surgery [address] [place] [address] Lower Extremity Arterial Duplex Report Patient Name: JOAQUIN BORRERO L : 1970 (54y 2m) Gender: M Study Date: 04/14/2024 08:07:07 AM Ht(Inch): Wt(Lb): BSA: Master Welder: LUIS DANIEL Location: [facility] Order Provider: MIRNA GOMEZ Quality: Adequate Ref Provider: MIRNA GOMEZ PROCEDURES: Arterial Report: A non-invasive vascular imaging study of the right lower extremity arteries was performed using B-mode ultrasound, color flow, and spectral Doppler. INDICATIONS: S/P thromb Rt pop, TPT, GAMING CAGE WORKER & mao 02/19/24; S/P thromb Rt pop, TPT & GAMING CAGE WORKER 02/16/24. HISTORY: Hypertension. Hyperlipidemia. Former smoker. COMPARISONS: No previous exams. MEASUREMENTS: Right Value Rt BLEACH SUPERVISOR Dst PSV 94.00 cm/sec Rt Profunda Prx [...] above. Electronically Signed By: Mirna Gomez MD Patricia 04/15/2024 3:53:40 PM PATIENT SVCS MGR Procedure Note Mirna oGmez MD - 04/15/2024 Vascular & Vein Surgery [address] [place] [address] Lower Extremity Arterial Duplex Report Patient Name: JOAQUIN BORRERO L : 1970 (54y 2m) Gender: M Study Date: 04/14/2024 08:07:07 AM Ht(Inch): Wt(Lb): BSA: Master Welder: Location: [facility] Order Provider: MIRNA GOMEZ Quality: Adequate Ref Provider: MIRNA GOMEZ PROCEDURES: Arterial Report: A non-invasive vascular imaging study of the right lowerextremity arteries was performed using B-mode ultrasound, color flow, and spectralDoppler. INDICATIONS: S/P thromb Rt pop, TPT, GAMING CAGE WORKER & mao 02/19/24; S/P thromb Rt pop, TPT & PTA02/16/24. HISTORY: Hypertension. Hyperlipidemia. Former smoker. COMPARISONS: No previous exams. MEASUREMENTS: Right Value Rt BLEACH SUPERVISOR Dst PSV 94.00 cm/sec Rt Profunda Prx [...] Mirna Gomez MD B 04/15/2024 3:53:40 PM PATIENT SVCS MGR us Mirna Gomez MD [facility] US PROCEDURES Final Result * US MARIA VICTORIA (04/14/2024 9:47 AM PATIENT SVCS MGR) LV EF % CONS SCIMAGE Anatomical Region Laterality Modality Vascular N/A Ultrasound 04/14/2024 7:55 AM PATIENT SVCS MGR Narrative 04/15/2024 3:55 PM PATIENT [facility] MGR Vascular & Vein Surgery [address] [place] [address] Lower Extremity Arterial Doppler Report Patient Name: JOAQUIN BORRERO L : 1970 Study Date: 04/14/2024 7:55:00 AM Gender: M Master Welder: Carmen Posada RVT Location: [facility] Ref Provider: MIRNA GOMEZ Quality: Adequate Order Provider: MIRNA GOMEZ PROCEDURES: Arterial Report: Ankle - Brachial Index Doppler exam. INDICATIONS: S/P thromb Rt pop, TPT, GAMING CAGE WORKER & mao 02/19/24; S/P thromb Rt pop, TPT & GAMING CAGE WORKER 02/16/24. HISTORY: Hypertension. Hyperlipidemia. Former smoker. COMPARISONS: No change compared to prior study. The previous exam was completed on 03/29/24. MEASUREMENTS: Right Value Left Value Rt Brachial Pressure 139 mmHg Lt Brachial Pressure 138 mmHg Rt GAMING CAGE WORKER Pressure 106 mmHg Lt GAMING CAGE WORKER Pressure 141 mmHg Rt DPA Pressure 101 [...] above. Electronically Signed By: Mirna Gomez MD [facility] 04/15/2024 3:54:04 PM PATIENT SVCS MGR Procedure Note Mirna Gomez MD - 04/15/2024 Vascular & Vein Surgery [facility] [address] Lower Extremity Arterial Doppler Report Patient Name: JOAQUIN BORRERO L : 1970 Study Date: 04/14/2024 7:55:00 AM Gender: M Master Welder: Carmen Posada RVT Location: [facility] Ref Provider: MIRNA GOMEZ Quality: Adequate Order Provider: MIRNA GOMEZ PROCEDURES: Arterial Report: Ankle - Brachial Index Doppler exam. INDICATIONS: S/P thromb Rt pop, TPT, GAMING CAGE WORKER & mao 02/19/24; S/P thromb Rt pop, TPT & PTA02/16/24. HISTORY: Hypertension. Hyperlipidemia. Former smoker. COMPARISONS: No change compared to prior study. The previous exam was completed on 03/29/24. MEASUREMENTS: Right Value Left Value Rt Brachial Pressure 139 mmHg Lt Brachial Pressure 138 mmHg Rt GAMING CAGE WORKER Pressure 106 mmHg Lt GAMING CAGE WORKER Pressure 141 mmHg Rt DPA Pressure 101 [...] is provided above. Electronically Signed By: MD JOSHUA GonzalezB 04/15/2024 3:54:04 PM PATIENT SVCS MGR us Mirna Gomez MD IM US PROCEDURES Final Result * US MARIA VICTORIA (03/29/2024 4:32 PM PATIENT SVCS MGR) Anatomical Region Laterality Modality Vascular N/A Ultrasound 03/29/2024 Narrative 04/02/2024 7:16 AM PATIENT SVCS MGR Am[employer]ion Job ID: [id number] Amphion Document ID: [id number] Dictated date/time: [id number] BILATERAL LOWER EXTREMITY ANKLE-BRACHIAL INDEX REASON FOR [...] the tibial vessels. Job ID/Internal Job ID: [id number] Xander Conde MD [facility] US PROCEDURES Final Re sult * US VEIN DUPLEX LOWER EXTREMITY RIGHT LIMITED, UNILATERAL (03/29/2024 4:28 PM PATIENT SVCS MGR) Anatomical Region Laterality Modality Vascular Right Ultrasound 03/29/2024 Narrative 04/01/2024 3:59 PM PATIENT SVCS MGR Am[employer]ion Job ID: [id number] Am[employer]ion Document ID: [id number] Dictated date/time: [id number] RIGHT LOWER EXTREMITY VENOUS DUPLEX REASON FOR EXAM Rule out deep vein thrombosis. FINDINGS ON THE RIGHT The right common femoral, femoral, popliteal, posterior tibial, peroneal, and great saphenous demonstrates spontaneous phasic flow. They augment and are compressible. INTERPRETATION No evidence of deep or superficial venous thrombosis in the right lower extremity. Job ID/Internal Job ID: [id number] Xander Conde MD [facility] US PROCEDURES Final Re sult * eGFR (03/29/2024 2:15 PM PATIENT SVCS MGR) eGFR >90 >=60 mL/min/1. 73 m2 Comment: [...] of Race in Diagnosing Kidney Disease, JASN 2020). The CKD-EPI equation should not be used for patients with unstable renal function and has not been validated in children and those over 70. Current interpretive data was last reviewed 2021. Blood 03/29/2024 2:15 PM PATIENT SVCS MGR 03/29/2024 2:18 PM PATIENT SVCS MGR us Kira HASSAN LAB BLOOD ORDERABLES Final Resul t [facility] [address] [facility] Department [place] [address] * Differential, auto (03/29/2024 2:15 PM PATIENT SVCS MGR) Pathologist [facility] Neutrophil abs 2.7 1.5 - 6.5 K/cumm Imm gran abs 0.0 0.0 - 0.1 K/cumm [facility] Lymphocyte abs 1.9 0.8 - 3.3 K/cumm [facility] Monocyte abs 0.5 0.2 - 0.8 K/cumm [facility] Eosinophil abs 0.2 0.0 - 0.5 K/cumm [facility] Basophil abs 0.1 0.0 - 0.1 K/cumm [facility] Neutrophil pct 49.5 % [facility] Comment: Interpretive Data Percent cell count reference ranges are not reported, since discordance with absolute values may lead to misinterpretation of CBC data. Current Interpretive Data was last revised on 2017. Imm gran pct 0.4 % [facility] Comment: Interpretive Data Percent cell count reference ranges are not reported, since discordance with absolute values may lead to misinterpretation of CBC data. Current Interpretive Data was last revised on 2017. Lymphocyte pct 35.8 % [facility] Comment: Interpretive Data Percent cell count reference ranges are not reported, since discordance with absolute values may lead to misinterpretation of CBC data. Current Interpretive Data was last revised on 2017. Monocyte pct 9.1 % [facility] Comment: Interpretive Data Percent cell count reference ranges are not reported, since discordance with absolute values may lead to misinterpretation of CBC data. Current Interpretive Data was last revised on 2017. Eosinophil pct 4.3 % [facility] Comment: Interpretive Data Percent cell count reference ranges are not reported, since discordance with absolute values may lead to misinterpretation of CBC data. Current Interpretive Data was last revised on 2017. Basophil pct 0.9 % [facility] Comment: Interpretive Data Percent cell count reference ranges are not reported, since discordance with absolute values may lead to misinterpretation of CBC data. Current Interpretive Data was last revised on 2017. Blood 03/29/2024 2:15 PM PATIENT SVCS MGR 03/29/2024 2:18 PM PATIENT SVCS MGR us Kira HASSAN LAB BLOOD ORDERABLES Final Resul t [facility] [address] [facility] Department of Laboratories [place], [place] [id number] * CBC with auto differential (03/29/2024 2:15 PM PATIENT SVCS MGR) WBC 5.4 3.8 - 9.9 K/cumm Hgb 15.5 13.0 - 17.5 g/dL [facility] Hct 48.0 38.9 - 50.3 % [facility] Plt 300 150 - 400 K/cumm [facility] MPV 9.5 9.1 - 12.3 fL [facility] RBC 5.20 4.30 - 5.80 M/cumm [facility] MCV 92.3 81.3 - 96.4 fL [facility] MCH 29.8 27.1 - 33.3 pg [facility] MCHC 32.3 32.3 - 35.7 g/dL [facility] RDW CV 13.2 11.1 - 14.9 % [facility] RDW SD 45.0 35.7 - 48.1 fL [facility] NRBC abs 0.00 0.00 - 0.01 K/cumm ANNIKA Blood 03/29/2024 2:15 PM PATIENT SVCS MGR 03/29/2024 2:18 PM PATIENT SVCS MGR us Kira Jeanne PA LAB BLOOD ORDERABLES Final Resul t Performing Organization Address [facility] de Phone Number [address] [place] [address] * aPTT (03/29/2024 2:15 PM PATIENT SVCS MGR) aPTT 25 22 - 37 sec Comment: Interpretive data aPTT test has not been evaluated for monitoring heparin therapy. The anti-Xa is the preferred test. Current interpretive data was last revised on 2019. Blood 03/29/2024 2:15 PM PATIENT SVCS MGR 03/29/2024 2:18 PM PATIENT SVCS MGR us Kira Jeanne PA LAB BLOOD ORDERABLES Final Resul t Performing Organization Address [facility] de Phone Number [address] [address] * Protime-INR (03/29/2024 2:15 PM PATIENT SVCS MGR) PT 12.1 12.0 - 14.6 sec INR 0.9 0.9 - 1.2 ANNIKA Comment: Ref Range High Interpretive data Oral anticoagulant therapeutic ranges: Venous thromboembolism prophylaxis or treatment: 2.0-3.0 CARDIOLOGY Standard range: 2.0-3.0 High-intensity range: 2.5-3.5 Refer to indication-specific guidelines for appropriate target ranges for prosthetic heart valve replacement. Current interpretive data was last revised on 2019. Blood 03/29/2024 2:15 PM PATIENT SVCS MGR 03/29/2024 2:18 PM PATIENT SVCS MGR us Kira Jeanne PA LAB BLOOD ORDERABLES Final Resul t [facility] [address] [facility] Department [place] [address] * (ABNORMAL) Comprehensive metabolic panel (03/29/2024 2:15 PM PATIENT SVCS MGR) Sodium 132(L) 135 - 145 mmol/L Potassium, pl See Comment 3.3 - 4.9 [facility] Comment:Credited; Hemolyzed Specimen Chloride 102 97 - 110 mmol/L [facility] CO2 See Comment [facility] Comment:Credited; Hemolyzed Specimen Anion gap See Comment 2 - 15 [facility] Comment:Credited; Hemolyzed Specimen BUN 15 6 - 25 mg/dL [facility] Creatinine 0.86 0.80 - 1.30 mg/dL [facility] Glucose 94 70 - 199 mg/dL [facility] Comment: Interpretive Data Fasting glucose >/= [...] classification and Diagnosis of Diabetes Diabetes Care 2021; 46: S19-S40. Current interpretive data was last revised 2022. Calcium 9.4 8.5 - 10.3 mg/dL [facility] Bilirubin, total 0.3 0.1 - 1.2 mg/dL [facility] Protein, pl See Comment 6.5 - 8.5 [facility] Comment:Credited; Hemolyzed Specimen Albumin 4.2 3.5 - 5.0 g/dL [facility] Alk phos See Comment 40 - 130 [facility] Comment:Credited; Hemolyzed Specimen ALT See Comment 7 - 55 [facility] Comment:Credited; Hemolyzed Specimen AST See Comment 10 - 50 [facility] Comment:Credited; Hemolyzed Specimen Blood 03/29/2024 2:15 PM PATIENT SVCS MGR 03/29/2024 2:18 PM PATIENT SVCS MGR us Kira HASSAN LAB BLOOD ORDERABLES Final Resul t ANNIKA [address] [facility] [place] [address] from Last 3 Months Insurance BLUE ACC CHOICE [facility] [employer] CHO[employer]OS Advance Directives For more information, please contact: [phone] * Full Code (Latest Code Status on File) Date Activated Date Inactivated Comments 02/19/2024 2:31 PM 02/21/2024 6:16 PM * Full Code Date Activated Date Inactivated Comments 02/12/2024 11:00 PM 02/19/2024 2:31 PM Care Teams Public Health Staff Nurse Relationship Specialty Start Date End Date Pinky Zhu DO [address] [facility] [address] [place] [address] [place] [address] PCP - General Family Medicine 02/23/24
[2024-06-07 14:10] LABS: Hematocrit 48.2 % (42.0-52.0); Hemoglobin 15.3 g/dL (14.0-18.0); Mean Corpuscular HGB Conc 31.7 g/dl (32-36); Mean Corpuscular Hemoglobin 28.8 pg (26-34); Mean Corpuscular Volume 90.6 fl (80-100); Mean Platelet Volume 10.4 fl (7.4-10.4); Platelet Count Result 270 k/mm3 (150-375); Red Blood Count 5.32 M/mm3 (4.6-6.20); Red Cell Distribution Width 14.1 % (11.5-14.5); White Blood Count 5.5 K/mm3 (4.5-10.0)
[2024-06-07 14:24] LABS: Alanine Aminotransferase 40 U/L (6-50); Albumin Level 4.3 g/dL (3.5-5.1); Alkaline Phosphatase 56 U/L (38-126); Anion Gap 9 mmol/L (4-12); Aspartate Amino Transferase 69 U/L (17-59); Bilirubin,Total 0.3 mg/dL (0.2-1.3); Blood Urea Nitrogen 22 mg/dL (9-20); Calcium 9.8 mg/dL (8.4-10.2); Carbon Dioxide 27 mmol/L (22-30); Chloride 104 mmol/L (98-107); Cholesterol 162 mg/dL (0-200); Estimated Glomerular Filt Rate > 60; Glucose 88 mg/dL (65-110); HDL Direct 64 mg/dL; Potassium 4.6 mmol/L (3.4-5.0); Sodium 140 mmol/L (137-145); Triglycerides 99 mg/dL (<150)
[2024-06-07 14:34] LABS: LDL Cholesterol Direct 71 mg/dL
[2024-06-07 14:53] LABS: Thyroid Stimulating Hormone 0.502 uIU/mL (0.465-4.680)
== END 2024-06-07 08:18 | disposition home or self-care (01) ==
LOC: ANHGOSHLAB 08:18
PROVIDERS: PCP Family Medicine; Visit Provider Family Medicine
DX: E66.3 Overweight (principal); E78.2 Mixed hyperlipidemia; Z79.899 Other long term (current) drug therapy
CPT/HCPCS: 36415; 80053; 80061; 84443; 85027

== ENCOUNTER 2024-07-19 12:27 | Outpatient (CLI) | payer BC, SELFPAY ==
[2024-07-19 13:45] LABS: Hematocrit 44.6 % (42.0-52.0); Hemoglobin 14.2 g/dL (14.0-18.0); Mean Corpuscular HGB Conc 31.8 g/dl (32-36); Mean Corpuscular Volume 91.2 fl (80-100); Platelet Count Result 237 k/mm3 (150-375); Red Blood Count 4.89 M/mm3 (4.6-6.20); Red Cell Distribution Width 15.1 % (11.5-14.5); White Blood Count 6.4 K/mm3 (4.5-10.0)
--- OUTSIDE RECORDS SUMMARY | 2024-07-19 13:52 | XMS_ITS | Continuity of Care Document ---
Author Organization [facility] Address [address] [place] [address] [address] [place] [address] Phone Care Team Providers Care Quality Control Tech Name Role Phone Ryan OD OD, Linda [...] Encounter OFFICE/OUTPA TIENT VISIT, EST [facility], [id number] [place], [place] [address], [place], [place], [id number], tel:[phone] [facility] [place] blurry vision (chief complaint) PresbyopiaOther vitreous opacities, bilateralPingue cula of left eyeDry eye syndrome of bilateral lacrimal glands 8 Ryan OD Linda. [address] , [address], [place], [place], [id number], [place]. tel:[phone] Referring Provider: Linda Daivs OD, [address], [place], [address] . tel:[phone] Family History Family Member Type Diagnosis Age At Onset Problem (finding) No family history of Di abetes mellitus Problem (finding) No family hist ory of Macular degeneration Problem (finding) No family history of Hy pertension Problem (finding) No family history of Gl [place] Payers Payer name Insurance type Covered alliance party ID Authoriza tion(s) [facility] [id number] Social History Type Description Quantity Date Captured [...]
--- OUTSIDE RECORDS SUMMARY | 2024-07-19 13:53 | XMS_ITS | Clinical Summary ---
Author Organization [facility] Address [address] [place] [phone] Care Team Providers Care Environmental Remediation Consultant Name Role Phone ValeriamynorPinky salmeron Primary Care Provider [phone] Allergies No known active allergies Medications atorvastatin [...] as needed for muscle spasms 4 Active acetaminophen (TYLENOL) 325 mg tablet Take 2 tablets (650 mg total) by mouth every 6 (six) hours as needed for pain Active omega-3 fatty acids-fish oil 300-1,000 mg capsule Take 2 capsules (2 g total) by mouth daily Active multivitamin with folic acid 400 mcg tablet Take 1 tablet by mouth daily Active lisinopriL (PRINIVIL,ZESTR IL) 10 mg tablet Take 1 tablet (10 mg total) by mouth daily Active aspirin 81 mg enteric coated tablet Take 1 tablet (81 mg total) by mouth daily 1 Active Eliquis 5 mg tablet Take 1 tablet (5 mg total) by mouth 2 (two) times a day 5 Active tadalafiL (ADCIRCA) 10 mg tablet Take 1 tablet (10 mg total) by mouth daily as needed for erectile dysfunction Active enoxaparin (LOVENOX) 80 mg/0.8 mL syringeIndicati ons:Embolus (HCC) Inject 0.8 mL (80 mg total) under the skin every 12 (twelve) hours for 3 days In preparation for lab work 4.8 mL 5 07/17/19 25 Active Problems Problem Noted Date Diagnosed Date Primary hypertension 04/14/2024 Assessment & Plan (04/14/2024 9:06 AM BANK PRESIDENT): Stable continue lisinopril Popliteal artery occlusion, 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 MARIA VICTORIA now at 0.7 2.8 reka-mh-cstvrnqx disease. Continue anticoagulation. Noninvasives testing in 6 months. Hematology appointment May. Assessment & Plan (03/12/2024 10:49 AM BANK PRESIDENT): Right lower extremity acute limb ischemia status post lysis, aspiration thrombectomy with conversion to open thrombectomy by Colin Gomez MD. we will get baseline noninvasive testing. Continue HLD and Eliquis. Referral sent to hematology Hypertriglyceridemia 02/13/2024 Assessment & Plan (04/14/2024 9:05 AM BANK PRESIDENT): Stable continue Lipitor Major depressive disorder 02/12/2024 Hyperlipidemia 02/12/2024 PTSD (post-traumatic stress disorder) 02/12/2024 PAD (peripheral artery disease) 02/12/2024 Pain in shoulder 07/07/2015 Encounters Date Type Department Care Team Description 07/15/2024 Documentation [facility] Floor 6 [place] [address] Denisse Meehan RMA Pre Cert (FVL and Prothrombin Gene NPCR) 07/13/2024 9:[address] [facility] Hematology [facility] [address] [place] [address] Sofie Young MD Embolus (HCC) (Primary Dx) 06/08/2024 12:30 PM CDT Lab [facility] - Lab Collection [facility] Floor 6 [place] [address] Embolus (HCC) 06/08/2024 12:00 PM CDT Lab [facility] [address] [place] [phone] 06/08/2024 11:00 AM CDT Office Visit [facility] [address] [place] [phone] Sofie Young MD Embolus (HCC) 06/08/2024 Documentation [facility] [address] [place] [phone] Denisse Meehan RMA Pre Cert (Jak2, CALR and MPL NPCR) 06/01/2024 Telephone [facility] Hematology [address] [place] [phone] Denisse Meehan RMA from Last 3 Months Medical History Medical [...] - 2022 Tobacco Cessation:Counseling Given: Not Answered [facility] Utilities Answer Date Recorded In the past 12 months has th e [employer], gas, oil, or water [employer] threatened to shut off services in your [...] often do you attend chur ch or catholic services? Never 02/13/2024 Do you belong to any clubs o r organizations such as bahai groups, unions, fraternal or athletic groups, or [...] when you are drinking? 3 or 4 4 Q3: How often do you have [...] any time in the past 12 m [facility], were you homeless or living in a usp (including now)? No 02/13/2024 Personal Safety Answer Date Recorded Have you ever been in or are you currently in a harmful physical or emotional relationship or is someone making you feel afraid or unsafe? Denies 03/29/2024 Sex and Gender Information Value Date Recorded Sex Assigned at Not on file Legal Sex Male 10:55 AM BANK PRESIDENT Gender Identity Not on file Sexual Orientation Not on file Obstetrics History Last Filed Vital Signs Vital Sign Reading Time Taken Comments Blood Pressure 151/96 06/08/2024 10:58 AM CDT Pulse 67 06/08/2024 10:58 AM CDT Temperature 36.9 C (98.4 F) 06/08/2024 10:58 AM CDT Respiratory Rate 17 06/08/2024 10:58 AM CDT Oxygen Saturation 95% 06/08/2024 10:58 AM CDT Inhaled Oxygen Concentration - - Weight 74.4 kg (164 lb) 06/08/2024 10:58 AM CDT Height 161.3 cm (5' 3.5 ) 06/08/2024 10:58 AM CD T Body Mass Index 28.59 06/08/2024 10:58 AM CDT Plan of Treatment Health Maintenance Due Date Last Done Comments Colon Cancer Screening-Colonoscopy 1969 Depression Screening 1969 Hepatitis C Screening 1969 Prostate Cancer Screening-PSA 1969 Hepatitis B Screening 1987 Regular Well Visit/Exam 18-64 1987 Zoster Vaccine (1 of 2) 2019 Influenza Vaccine (Season Ended) 2024 DTaP/Tdap/Td Vaccine (3 - Td or Tdap) 06/25/2033 06/26/2023, 08/08/2022 Pneumococcal vaccine <65 Aged Out No longer eligible based on patient's age to complete this topic Medical Devices Implanted Type Area Packaging Line Operator Device Identifier Shelf Expiration Date Model / Serial / Lot [employer] System Closure Repair Femoral Artery Suture Mediated Perclose Prostyle [id number] - [id number] Implanted:Qty: 1 on 02/18/2024 by Colin Gomez MD at [facility] [employer] 10/28/2025 [id number] / / [id number] [employer] Mary Patch Vascuguard 0.88cm [id number] - [id number] Implanted:Qty: 1 on 02/19/2024 by Colin Gomez MD at [facility] Right: Popleteal Artery [facility] [id number] 09/14/2025 [id number] / / [id number] Description:Patch to poplite al artery and TP trunk Procedures Procedure Name Priority Date/Time Associated Diagnosis Comments SURGICAL PATHOLOGY Routine 06/08/2024 12 :49 PM CDT CALR WITH REFLEX TO MPL (MYELOPROLIFERATIVE NEOPLASM) Routine 06/08/2024 12:49 PM CDT Embolus (HCC) EGFR Routine 06/08/2024 12:49 PM CDT Embolus (HCC) DIFFERENTIAL AUTO Routine 06/08/2024 12: 49 PM CDT Embolus (HCC) JAK2/CALR/MPL TESTING CASCADE Routine 06/08/2024 12:49 PM CDT Embolus (HCC) CBC WITH AUTO DIFFERENTIAL Routine 06/08/2024 12:49 PM CDT Embolus (HCC) COMPREHENSIVE METABOLIC PANEL Routine 06/08/2024 12:49 PM CDT Embolus (HCC) BETA 2 GLYCOPROTEIN IGG AB Routine 06/08/2024 12:49 PM CDT Embolus (HCC) BETA 2 GLYCOPROTEIN IGM AB Routine 06/08/2024 12:49 PM CDT Embolus (HCC) CARDIOLIPIN ANTIBODY, IGG Routine 06/08/2024 12:49 PM CDT Embolus (HCC) CARDIOLIPIN ANTIBODY, IGM Routine 06/08/2024 12:49 PM CDT Embolus (HCC) PNH PROFILE Routine 06/08/2024 12:49 PM CDT Embolus (HCC) ANTITHROMBIN Routine 06/08/2024 12:49 PM CDT Embolus (HCC) RHEUMATOID FACTOR Routine 06/08/2024 12: 49 PM CDT Embolus (HCC) KLEVER QUALITATIVE WITH REFLEX TO KLEVER QUANTITATIVE Routine 06/08/2024 12:49 PM CDT Embolus (HCC) PROTEIN C ACTIVITY Routine 06/08/2024 12 :49 PM CDT Embolus (HCC) PROTEIN S ANTIGEN, FREE Routine 06/08/2024 12:49 PM CDT Embolus (HCC) from Last 3 Months Results * JAK2/CALR/MPL testing cascade (06/08/2024 12:49 PM CDT) JAK2 V617F Not Detected Not Detected [facility] JAK2 V617F Interpretation Not detected: JAK2 V617F mutation was not detected. As ordered, reflex testing for CALR and MPL mutations will be performed and reported separately. A negative JAK2 V617F result may be caused by one of several factors, including absence of Myeloproliferativ e Neoplasm (MPN) or presence of JAK2 [id number] MPN. A JAK2 V617F mutation is detected in 98% of patients with polycythemia vera (PV), 55% of patients with essential thrombocythemia (ET), and 60% of patients with primary myelofibrosis (PMF). This JAK2 V617F test result should be interpreted within the context of clinical and pathological findings for a definitive diagnosis. [facility] JAK2 V617F Specimen Blood [facility] JAK2 V617F Result Review Final report reviewed by: ELMIRA Rosales([facility]) Medication Care Manager, on 06/10/2024 10:12:04 CDT. [facility] Comment: Interpretive Data Method: The assay detects the JAK2 V617F ([id number]: c.[id number]) mutation using PCR primers and allele-specific dye-labeled oligonucleotides that exactly match the mutant or normal alleles. When perfectly hybridized to the template DNA sequence, the labeled oligonucleotides are cleaved by the 5 -> 3 exonuclease activity of DNA polymerase. Cleavage during the exponential phase of PCR releases the district court reporter dye from the quencher and the signal is quantified ( real time quantitative PCR ). The results report the mutant allele proportion of total JAK2 alleles. The validated limit of detection for this assay is 0.1%. FDA Comment: This test was developed and its performance characteristics determined by this [facility]. It has not been cleared or approved by the U.S. Food and Drug Administration. FDA does not require this test to go through premarket FDA review. This test is used for clinical purposes. It should not be regarded as investigational or for research. This laboratory is certified under the Clinical Laboratory Improvement Amendments (CLIA) as qualified to perform high complexity clinical laboratory testing. Literature References: 1. Kristy Hurt, Leila R, Geovanny ROSE. Genetic basis and molecular profiling in myeloproliferative neoplasms. Blood. 2022Jul 18;141(86):4478 8 681. PMCID: [id number] This test was performed at: [facility], [facility], [place]#[id number], Maria R Burciaga, Ph.D., [place], [address], [place] Current interpretive data was last revised 2023. Blood 06/08/2024 12:4 9 PM CDT 06/08/2024 2:35 PM CDT Sofie Young MD LAB GENETIC TESTING Final Result [facility] Department [place] [address] [facility] * CALR with reflex to MPL (myeloproliferative neoplasm) (06/08/2024 12:49 PM CDT) CALR/MPL Specimen type PB CALR/MPL Result See Footnote ANNIKA HANLEY Comment:RESULT: see interpre tation CALR/MPL Final diagnosis See Footnote ANNIKA HANLEY Comment: Peripheral blood, CALR mutation analysis, exon 9: Negative. No deletion or insertion was detected in CALR, exon 9. Method Summary - CALR: Exon 9 of CALR was amplified from genomic DNA by polymerase chain reaction (PCR). The size of the PCR product was analyzed by capillary electrophoresis. The analytic sensitivity of this assay is approximately 6% for the majority of CALR mutations and is approximately 20% for the rare type 1-bp deletion. Peripheral blood, MPL exon 10 mutation analysis: Negative. No mutation was detected in MPL, exon 10. Method summary - MPL exon 10 mutation analysis: Genomic DNA was extracted and [place] sequencing used to evaluate for mutations in MPL, exon 10. The sensitivity of this assay is approximately 20%, such that samples containing lower percentages of mutated DNA will appear negative. Comment: Negative results for CALR exon 9 and MPL exon 10 mutations do not exclude the possibility of a myeloproliferative neoplasm. Correlation with clinical and morphologic findings is recommended for a definitive diagnosis. Samples containing mutations in these genes at levels below the analytical sensitivity of each assay may not be detected by these methods. If clinical suspicion is high for polycythemia vera and [id number] (JAK2B, JAK2M, or JAK2V) was tested negative, JAK2 Exon 12 analysis could be considered (JAKXB or JAKXM). Signing Pathologist: Brandon Rodriguez M.D. ADDITIONAL INFORMATION This test was developed and its performance characteristics determined by [facility] in a manner consistent with CLIA requirements. This test has not been cleared or approved by the U.S. Food and Drug Administration. Test Performed by: [place] [address] Mushroom Cultivator: Cyn Stearns Ph.D.; CLIA# [id number] Blood 06/08/2024 12:4 9 PM CDT 06/10/2024 3:15 PM CDT Leroy ROBLERO [facility] - 06/17/2024 9:59 AM CDT CALR, MPL Reflex order reflexed from JAK2/CALR/MPL testing cascade. Sofie Young MD LAB BLOOD ORDERABLES Carey frank Result [facility] Department [place] [address] * (ABNORMAL) KLEVER ab ql w/rflx to KLEVER qn (06/08/2024 12:49 PM CDT) KLEVER Positive 1:80 Comment: Interpretive Data Normal range for KLEVER Qualitative Antibody = Negative. 1. KLEVER is performed using indirect immunofluorescence against HEp-2 cells 2. KLEVER titers are performed on all positive qualitative results. 3. A significantly positive KLEVER result is defined as a positive nuclear fluorescence at a titer of 1:80 or greater. 4. 15% of normal people above age 65 have significantly positive KLEVER results. 5% or less of normal people age 65 or under have significantly positive KLEVER results. Current interpretive data was last revised on 2019. KLEVER, quant 1:80 titer [facility] KLEVER, interp Homogeneous (A) [facility] Blood 06/08/2024 12:4 9 PM CDT 06/08/2024 2:16 PM CDT Sofie Young MD LAB BLOOD ORDERABLES Caery l Result ANNIKA [facility] Department [place] [address] * eGFR (06/08/2024 12:49 PM CDT) eGFR 79 >=60 mL/min/1. 73 m2 Comment: Interpretive Data [...] interpretive data was last reviewed 2021. Blood 06/08/2024 12:4 9 PM CDT 06/08/2024 1:02 PM CDT Sofie Young MD LAB BLOOD ORDERABLES Carey l Result [facility] Department [place] [address] * Differential, auto (06/08/2024 12:49 PM CDT) Neutrophil abs 3.4 1.5 - 6.5 K/cumm Comment:Testing performed by : [facility], [address] [place] [phone] Lymphocyte abs 2.3 0.8 - 3.3 K/cumm CERNER [facility] Comment:Testing performed by : [facility], [address] [place] [phone] Monocyte abs 0.5 0.2 - 0.8 K/cumm CERNER BJ Comment:Testing performed by : [facility], [address] [place] [phone] Eosinophil abs 0.1 0.0 - 0.5 K/cumm CERNER [facility] Comment:Testing performed by : [facility], [address] [place] [phone] Basophil abs 0.0 0.0 - 0.1 K/cumm CERNER [facility] Comment:Testing performed by : [facility], [address] [place] [phone] Neutrophil pct 53.6 % CERNER BJ Comment: Interpretive Data Percent cell count reference ranges are not reported, since discordance with absolute values may lead to misinterpretation of CBC data. Current Interpretive Data was last revised on 2017. Testing performed by: [facility], [address] [place] [phone] Lymphocyte pct 35.9 % CERNER BJ Comment: Interpretive Data Percent cell count reference ranges are not reported, since discordance with absolute values may lead to misinterpretation of CBC data. Current Interpretive Data was last revised on 2017. Testing performed by: [facility], [address] [place] [phone] Monocyte pct 8.2 % CERNER BJ Comment: Interpretive Data Percent cell count reference ranges are not reported, since discordance with absolute values may lead to misinterpretation of CBC data. Current Interpretive Data was last revised on 2017. Testing performed by: [facility], [address] [place] [phone] Eosinophil pct 1.5 % ANNIKA HANLEY Comment: Interpretive Data Percent cell count reference ranges are not reported, since discordance with absolute values may lead to misinterpretation of CBC data. Current Interpretive Data was last revised on 2017. Testing performed by: [facility], [address] [place] [phone] Basophil pct 0.8 % ANNIKA HANLEY Comment: Interpretive Data Percent cell count reference ranges are not reported, since discordance with absolute values may lead to misinterpretation of CBC data. Current Interpretive Data was last revised on 2017. Testing performed by: [facility], [address] [place] [phone] Blood 06/08/2024 12:4 9 PM CDT 06/08/2024 1:00 PM CDT us Sofie Young MD LAB BLOOD ORDERABLES Carey l Result MAYSHWETHA [facility] Department [place] [address] * Cardiolipin antibody, IgG (06/08/2024 12:49 PM CDT) Cardiolipin, IgG <1.6 <=19.9 GPL U/mL Comment: Interpretive Data Negative: <20 GPL U/mL Positive: > or = 20 GPL U/mL Anticardiolipin antibodies are associated with certain clinical events including unexplained arterial and venous thromboemboli, and unexplained morbidity. However, detection of low levels of anticardiolipin antibodies occurs in both healthy individuals and patients with co-morbidities not associated with the antiphospholipid antibody (APA) syndrome including inflammatory and infectious conditions. In order to improve specificity, the International Congress on Antiphospholipid Antibodies recommends ACL antibodies of IgG or IgM isotype present in medium or high titer (e.g. > 40 GPL, or >the 99th percentile), on two or more occasions, at least 12 weeks apart, to support a diagnosis of antiphospholipid syndrome. The cutoff for this assay was developed from data based on the 99th percentile. In addition, the International Congress on Antiphospholipid Antibodies does not recommend testing for IgA BRENDA. These results were obtained with the [employer] 2200 System. Cardiolipin IgG values obtained with different manufacturers' assay methods may not be used interchangeably. Current interpretive data was last revised on 2016. Blood 06/08/2024 12:4 9 PM CDT 06/08/2024 2:16 PM CDT us Sofie Young MD LAB BLOOD ORDERABLES Carey frank Result ANNIKA [facility] Department [place] [address] * Beta 2 glycoprotein IgM Ab (06/08/2024 12:49 PM CDT) [facility] Beta-2 glycoprotein I, IgM 1.0 <=19.9 units/mL Comment: Interpretive Data Negative: <20 U/mL Positive: > or = 20 U/mL Beta- 2 glycoprotein 1 (Beta-2 GP1) antibodies are a more specific marker of thrombotic risk. It is expected that some samples will be ACL positive and Beta- 2 GP1 negative. In order to improve specificity, the International Congress on Antiphospholipid Antibodies recommends Beta-2 GP1 antibodies of IgG or IgM isotype (> the 99th percentile), obtained twice, at least 12 weeks apart, to support a diagnosis of antiphospholipid syndrome. The cutoff for this assay was developed from data based on the 99th percentile. The Beta-2 GP1 IgM test can produce false positive results due to cross-reactivity with Rheumatoid factor. These results were obtained with the [employer] 2200 System. Beta-2 GP1 IgM values obtained with different manufacturers' assay methods may not be used interchangeably. Current interpretive data was last revised on 2016. Blood 06/08/2024 12:4 9 PM CDT 06/08/2024 2:16 PM CDT Sofie Young MD LAB BLOOD ORDERABLES Carey l Result Performing Organization Address [facility] Co de Phone Number [facility] Department [place] [address] * Beta 2 glycoprotein IgG Ab (06/08/2024 12:49 PM CDT) [facility] Beta-2 glycoprotein I, IgG <1.4 <=19.9 units/mL Comment: Interpretive Data Negative: <20 U/mL Positive: > or = 20 U/mL Beta-2 glycoprotein 1 (Beta-2 GP1) antibodies are a more specific marker of thrombotic risk. It is expected that some samples will be ACL positive and Beta- 2 VI2vbvachxo. In order to improve specificity, the International Congress on Antiphospholipid Antibodies recommends Beta-2 GP1 antibodies of IgG or IgM isotype (> the 99th percentile), obtained twice, at least 12 weeks apart, to support a diagnosis of antiphospholipid syndrome. The cutoff for this assay was developed from data based on the 99th percentile. These results were obtained with the [employer] 2[employer] System. Beta 2GP1 IgG values obtained with different manufacturers' assay methods may not be used interchangeably. Current interpretive data was last revised on 2016. Blood 06/08/2024 12:4 9 PM CDT 06/08/2024 2:16 PM CDT Sofie Young MD LAB BLOOD ORDERABLES Carey l Result Performing Organization Address [facility] Co de Phone Number ANNIKA HANLEY [facility] Department [place] [address] * CBC with auto differential (06/08/2024 12:49 PM CDT) [facility] WBC 6.4 3.8 - 9.9 K/cumm Comment:Testing performed by : [facility], [address] [place] [phone] Hgb 15.9 13.0 - 17.5 g/dL CERNER BJ Comment:Testing performed by : [facility], [address] [place] [address] Hct 47.8 38.9 - 50.3 % CERNER BJ Comment:Testing performed by : [facility], [address] [place], [place] [phone] Plt 272 150 - 400 K/cumm CERNER BJ Comment:Testing performed by : [facility], [address] [place] [address] MPV 8.0 6.8 - 10.4 fL CERNER BJ Comment:Testing performed by : [facility], [address] [place], [place] [phone] RBC 5.52 4.30 - 5.80 M/cumm CERNER BJ Comment:Testing performed by : [facility], [address] [place], [place] [phone] MCV 86.6 81.3 - 96.4 fL CERNER BJ Comment:Testing performed by : [facility], [address] [place] [address] MCH 28.8 27.1 - 33.3 pg CERNER BJ Comment:Testing performed by : [facility], [address] [place] [address] MCHC 33.2 32.3 - 35.7 g/dL CERNER BJ Comment:Testing performed by : [facility], [address] [place] [address] RDW CV 13.9 11.1 - 14.9 % CERNER BJ Comment:Testing performed by : [facility], [address] [place] [address] NRBC abs 0.00 0.00 - 0.01 K/cumm CERNER BJ Comment:Testing performed by : [facility], [address] [place], [place] [phone] Blood 06/08/2024 12:4 9 PM CDT 06/08/2024 1:00 PM CDT us Sofie Young MD LAB BLOOD ORDERABLES Carey l Result ANNIKA HANLEY [facility] [place] [address] * Cardiolipin antibody, IgM (06/08/2024 12:49 PM CDT) Cardiolipin, IgM 1.4 <=19.9 MPL U/mL Comment: Interpretive Data Negative: <20 MPL U/mL Positive: > or = 20 MPL U/mL Anticardiolipin antibodies are associated with certain clinical events including unexplained arterial and venous thromboemboli, and unexplained morbidity. However, detection of low levels of anticardiolipin antibodies occurs in both healthy individuals and patients with co-morbidities not associated with the antiphospholipid antibody (APA) syndrome including inflammatory and infectious conditions. In order to improve specificity, the International Congress on Antiphospholipid Antibodies recommends ACL antibodies of IgG or IgM isotype present in medium or high titer (e.g. > 40 MPL, or >the 99th percentile), on two or more occasions, at least 12 weeks apart, to support a diagnosis of antiphospholipid syndrome. The cutoff for this assay was developed from data based on the 99th percentile. In addition, the International Congress on Antiphospholipid Antibodies does not recommend testing for IgA BRENDA. The ACL IgM test can produce false positive results due to cross-reactivity with Rheumatoid factor, dsDNA or certain infectious disease antibodies. These results were obtained with the [employer] 2[employer] System. Cardiolipin IgM values obtained with different manufacturers' assay methods may not be used interchangeably. Current interpretive data was last revised on 2016. Blood 06/08/2024 12:4 9 PM CDT 06/08/2024 2:16 PM CDT Sofie Young MD LAB BLOOD ORDERABLES Carey l Result ANNIKA HANLEY [facility] [place] [address] * PNH profile (06/08/2024 12:49 PM CDT) [facility] RBC-CD59 Test Completed [facility] WBC-CD59 Test Completed [facility] FLAER Test Completed [facility] Interpretation See separate Surgical Pathology report. [facility] Blood 06/08/2024 12:4 9 PM CDT 06/08/2024 6:59 PM CDT Narrative [facility] - 06/08/2024 10:26 PM CDT This test was developed and its performance characteristics determined by the [facility]. It has not been cleared or approved by the US Food and Drug Administration. This test is used for clinical purposes. It should not be regarded as investigational or for research. This laboratory is certified under the Clinical Laboratory Improvement Amendments (CLIA) as qualified to perform high complexity clinical laboratory testing. If reference ranges are not populated, there is no established reference range for that parameter for the patient s age. Sofie Young MD LAB BLOOD ORDERABLES Carey l Result [facility] [place] [address] * Protein S antigen, free (06/08/2024 12:49 PM CDT) Pathologist [facility] Protein S, free 112 55 - 150 % Blood 06/08/2024 12:4 9 PM CDT 06/08/2024 1:25 PM CDT Sofie Young MD LAB BLOOD ORDERABLES Carey l Result [facility] [place] [address] * Protein C activity (06/08/2024 12:49 PM CDT) Pathologist [facility] Protein C 139 60 - 150 % Blood 06/08/2024 12:4 9 PM CDT 06/08/2024 1:25 PM CDT Sofie Young MD LAB BLOOD ORDERABLES Carey l Result Performing Organization Address City/[facility] Co de Phone Number [facility] [place] [address] * (ABNORMAL) Antithrombin Activity (06/08/2024 12:49 PM CDT) [facility] Antithrombin III 129(H) 80 - 125 % Comment: Interpretive Data High concentrations of anti-Xa direct oral anticoagulants can cause Antithrombin activities to be falsely elevated. Current interpretive data was last reviewed 2023 Blood 06/08/2024 12:4 9 PM CDT 06/08/2024 1:25 PM CDT Sofie Young MD LAB BLOOD ORDERABLES Carey l Result Performing Organization Address [facility] de Phone Number [facility] Department [place] [address] * Rheumatoid factor (06/08/2024 12:49 PM CDT) [facility] Rheumatoid factor, quant <10.0 0.1 - 15.0 IUnits/mL Blood 06/08/2024 12:4 9 PM CDT 06/08/2024 1:25 PM CDT Sofie Young MD LAB BLOOD ORDERABLES Carey l Result Performing Organization Address [facility] [place] [address] * Comprehensive metabolic panel (06/08/2024 12:49 PM CDT) [facility] Sodium 140 135 - 145 mmol/L Potassium, pl 4.5 3.3 - 4.9 mmol/L [facility] Chloride 103 97 - 110 mmol/L [facility] CO2 27 22 - 32 mmol/L [facility] Anion gap 10 2 - 15 mmol/L [facility] BUN 18 6 - 25 mg/dL [facility] Creatinine 1.10 0.80 - 1.30 mg/dL [facility] Glucose 86 70 - 199 mg/dL [facility] Comment: Interpretive Data Fasting glucose >/= [...] interpretive data was last revised 2022. Calcium 10.0 8.5 - 10.3 mg/dL [facility] Bilirubin, total 0.2 0.1 - 1.2 mg/dL [facility] Protein, pl 8.0 6.5 - 8.5 g/dL [facility] Albumin 4.4 3.5 - 5.0 g/dL [facility] Alk phos 65 40 - 130 Units/L [facility] ALT 43 7 - 55 Units/L [facility] AST 42 10 - 50 Units/L [facility] Blood 06/08/2024 12:4 9 PM CDT 06/08/2024 1:02 PM CDT Sofie Young MD LAB BLOOD ORDERABLES Carey frank Result [facility] [place] [address] * Surgical pathology (06/08/2024 12:49 PM CDT) Blood 06/08/2024 12:4 9 PM CDT 06/08/2024 6:40 PM CDT Narrative 06/09/2024 6:56 PM CDT EPIC results best viewed via link to PDF [facility] [place] [address] Note to Patients: This report may contain a detailed description of human tissue sent by a health care provider to the laboratory for pathologic evaluation. The content of this report is essential for diagnosis and may provide important critical findings. This information may be unfamiliar to patients to review without a medical professional present. It is advised that the patient review this report in the presence of a health care provider who can answer questions and explain the details. SURGICAL PATHOLOGY REPORT FINAL Patient Name: JOAQUIN QUEEN Gender: M : 1970 (Age: 54) Address: [address] [place] [id number] Hospital #: [id number] Taken:06/08/2024 Received:06/08/2024 Reported: 06/09/2024 Patient Type: [facility] Service: Laboratory Location: Physician(s): Sofie Young MD Diagnosis: Peripheral blood for [facility] flow cytometry: - No immunophenotypic evidence of paroxysmal nocturnal hemoglobinuria s/06/09/2024 12:03 By this signature, I attest that the above diagnosis is based upon my personal examination of the slides(and/or other material indicated in the diagnosis). Mary Lou Robert M.D. Report Electronically Reviewed and Signed Out By Mary Lou Robert M.D. 06/09/2024 18:56:07 Microscopic Description and Comment: Flow cytometry performed on the peripheral blood shows retained expression of CD59 in red blood cells and granulocytes. Furthermore, granulocytes demonstrate retained FLAER binding. Flow cytometry was performed using antibodies to the following cellular antigens: CD45, DY807s, CD15, CD59, FLAER. 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 Specimen(s) Received: A: Peripheral blood for [facility] flow cytometry Gross Description: { Not Entered } Gross Pathologist: No pathologist assigned By this signature, I attest that the above diagnosis is based upon my personal examination of the slides(and/or other material). Addenda/Procedures The performance characteristics of some immunohistochemical stains, fluorescence in-situ hybridization tests and immunophenotyping by flow cytometry cited in this report (if any) were determined by the Surgical Pathology and Flow Cytometry Departments at [facility] as part of an ongoing quality control microbiologist program and in compliance with federally mandated regulations drawn from the Clinical Laboratory Improvement Act of 1988 (CLIA '88). Some of these tests rely on the use of analyte specific reagents and are subject to specific labeling requirements by the US Food and Drug Administration. Such diagnostic tests may only be performed in a facility that is certified by the Department of Health and Human Services as a high complexity laboratory under CLIA '88. The FDA has determined that such clearance or approval is not necessary. This test is used for clinical purposes. It should not be regarded as investigational or for research. Nevertheless, federal rules concerning the medical use of analyte specific reagents require that the following disclaimer be attached to the report: This test was developed and its performance characteristics determined by the Surgical Pathology and Flow Cytometry Departments of [facility]. It has not been cleared or approved by the U. S. Food and Drug Administration. IMAGES AND SCANNED DOCUMENTS, IF INCLUDED, ONLY VIEWABLE IN PDF VERSION OF REPORT Sofie Young MD LAB PATHOLOGY ORDERABLES Final Result from Last 3 Months Insurance [facility] [employer] [facility] Fee Basis Office [address] ACC CHOICE OOS Advance Directives For more information, please contact: [phone] * Full Code (Latest Code Status on File) Date Activated Date Inactivated Comments 02/19/2024 2:31 PM 02/21/2024 6:16 PM * Full Code Date Activated Date Inactivated Comments 02/12/2024 11:00 PM 02/19/2024 2:31 PM Care Teams Environmental Remediation Consultant Relationship Specialty Start Date End Date Pinky Zhu DO [facility] [facility] [address] [place], [place] [id number] PCP - General Family Medicine 02/23/24
--- OUTSIDE RECORDS SUMMARY | 2024-07-19 13:53 | XMS_ITS ---
Author Name [facility] [facility] [place] [facility] Address [address] [place] [address] Care Team Providers Care Hotel Valet Attendant Name Role Phone SWATI SCHWARTZ Primary Care [...] (PPO) [employer] Mar 31, 2015 [id number] [phone] DARION QUEEN BROOK PATIENT AN[employer] [place] PREFERRED PROVIDER ORGANIZAT ION (PPO) [employer] Mar 31, 2015 [id number] [phone] DARION QUEEN BROOK PATIENT [employer] ([employer]) PRESCRIPT ION REP WAGE Mar 31, 2004 [id number] [phone] PREMA QUEEN PATIENT Selected Encounter This section includes the information on record at [place] for the Encounter. Date/Time Encounter Type Encounter Description Reason Provider Source Feb 16, 2024 05:56 PM Outpatient Encounter GENERAL INTERNAL MEDICINE TAMIKA SLATER E Encounter Template Text not used by [facility] Plan of Treatment: Future Appointments (+ 6 months) and Future Tests (+/- 45 days) The Plan of Treatment section includes future care activities for the patient from all [place] treatmentfacilities. This section includes future appointments and future orders which are active, pending or scheduled. Future Appointments This section includes appointments that were scheduled to occur 6 months from the date of the Encounter, up to a maximum of 20 appointments. The data comes from all [place] treatment facilities. Appointment Date/Time Appointment Type Appointme nt Facility Name May 19, 2024 09:00 AM AMBULATORY - MEDICINE [facility] Lab Results: +/- 30 days of the encounter This section includes the Chemistry and Hematology Lab Results on record with [place] for the patient. Radiology Reports and Pathology Reports are provided separately, in subsequent sections. Lab Results This section contains the Chemistry/Hematology Results that were resulted 30 days before or 30 daysafter the date of the Encounter. Date/Time Source Result Type Result - Unit Interpretation Reference Range Specimen Type Comment Feb 05, 2024 12:00 PM [facility] OCCULT BLOOD FIT X1 SCREEN (MFP ONLY) FECES S pecimen Type: FECES No comment entered. Ordering Provider: SWATI SCHWARTZ Report Released Date/Time: Dec 22, 2023 11:57 AM Reporting Lab: [facility] [address] [facility] [id number] Performing Lab: [facility] [address] [place] [phone] OCCULT BLOOD (FIT) #1 OF 1 Negative Nega tive Social History: Smoking Status (Most current) and Tobacco Use (All prior to encounter date) This section includes the most current, and the historical, smoking and tobacco- related health factors from the [place] facility where the Encounter took place. Current Smoking Status This section includes the most current smoking, or tobacco-related health factor, from the [place] facility where the Encounter took place. Date/Time Current Smoking Status Comment Facil ity Oct 09, 2020 04:02 PM VA-TOBACCO USER EVERY DAY [facility] Tobacco Use History This section includes a history of the smoking, or tobacco-related health factors, that were collected on or before the date of the Encounter. The data comes from the [place] facility where the Encounter took place. Date/Time Smoking Status/Tobacco Use Comment F acility Oct 09, 2020 04:02 PM VA-TOBACCO USE > 1 5 LESS THAN 30 YEARS [facility] Oct 09, 2020 04:02 PM VA-TOBACCO USE ADVICE [facility] Oct 09, 2020 04:02 PM VA-TOBACCO USE BUTCHER'S ASSISTANT NO [facility] Oct 09, 2020 04:02 PM VA-TOBACCO USE MED NO [facility] Oct 09, 2020 04:02 PM VA-TOBACCO USER EVERY DAY [facility] Encounter Notes: All associated encounter notes This section contains the clinical notes associated to the Encounter. Date/Time Encounter Note(s) Provider Source Feb 23, 2024 10:21 AM ADDENDUM: LOCAL TITLE: Addendum STANDARD TITLE: ADDENDUM DATE OF NOTE: FEB 23, 2024@10:21:38 ENTRY DATE: FEB 23, 2024@10:21:38 AUTHOR: MARIE BURROWSIGNER: URGENCY: STATUS: COMPLETED Discharge Disposition Date of discharge: Jan Disposition Discharge to home Records received for this EOC; sent to [facility] for scanning and shared securely with [place] PCP Team. The below is an excerpt from the discharge summary (final attending note if no DC summary available): Hospital Course: This is 54-year-old male with past medical history of hyperlipidemia, PTSD presented to emergency room complaint of right lower extremity pain and paresthesia. 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 He states he was seen outpatient at [facility] and was told to come to [facility] ED for suspected peripheral artery disease. Patient [...] schedule an appointment with the following provider(s): [facility] at [address] [phone] Schedule an appointment as soon as [...] appropriate to avoid non-payment for recommended services. /es/ MARIE BURROWS REGISTERED NURSE Signed: 02/23/2024 10:25 Receipt Acknowledged By: 02/23/2024 10:38 /es/ COLBY NIELSEN- NURSE PRACTITIONER 02/23/2024 14:33 /es/ LALY CHAU, RN, BSN Registered Nurse --- Original Document --- 02/12/24 [facility] PRESENTING CARE COORD PLAN 6[address]: Emergency Notification Intake Date Presenting to the Facility: Jan Method of Contact: Notified from ECR worklist Notification ID: [id number] [facility] Referral #: [id number] [facility] review [facility] Name: Hospital: [facility] Address: City: [place] State: [place] Chief complaint: pain and paresthesia RLE. No injury/trauma. Suspect PAD. Disposition Admitted Route of Admission: ER Date of Admission: Jan Admitting Diagnosis: peripheral artery disease Alerting PCP team to this note for continuity of care. Records relevant to this episode of care may be found in [facility]. The patient is currently [...] patient optimized for leg procedure. /bhaskar/ Tamika MONTES, RN V[facility] Signed: 02/16/2024 18:01 Receipt Acknowledged By: 02/17/2024 08:41 /es/ COLBY NIELSEN- NURSE PRACTITIONER 02/20/2024 10:21 /es/ LALY CHAU, RN, BSN Registered Nurse 02/19/2024 [...] to this note for continuity of care. [facility] team has also been alerted to this continuing stay via BMS. /heidi BURROWS REGISTERED NURSE Signed: 02/19/2024 13:58 Receipt Acknowledged By: 02/20/2024 08:49 /MAGGI Chiang NURSE PRACTITIONER 02/19/2024 14:39 /heidi CHAU RN, BSN Registered Nurse MARIE BURROWS [facility] Feb 19, 2024 01:56 PM [...] to this note for continuity of care. [facility] team has also been alerted to this continuing stay via BMS. /heidi BURROWS REGISTERED NURSE Signed: 02/19/2024 13:58 Receipt Acknowledged By: 02/20/2024 08:49 /MAGGI Chiang NURSE PRACTITIONER 02/19/2024 14:39 /heidi CHAU RN, BSN Registered Nurse --- Original Document --- 02/12/24 [facility] SELF PRESENTING CARE COORD PLAN 657 STL: Emergency Notification Intake Date Presenting to the Facility: Jan Method of Contact: Notified from ECR worklist Notification ID: [id number] [facility] Referral #: [id number] clinical review [facility] Name: Hospital: [facility] Address: City: [place] State: [place] Chief complaint: pain and paresthesia RLE. No injury/trauma. Suspect PAD. Disposition Admitted Route of Admission: ER Date of Admission: Jan Admitting Diagnosis: peripheral artery disease Alerting PCP team to this note for continuity of care. Records relevant to this episode of care may be found in [facility]. The patient is currently [...] procedure. /bhaskar/ Tamika Slater MSN, RN V15 [facility] Resource [facility] Signed: 02/16/2024 18:01 Receipt Acknowledged By: 02/17/2024 08:41 /bhaskar/ SWATI SCHWARTZ, ANP- NURSE PRACTITIONER * AWAITING SIGNATURE * LALY CHAU GRETCHEN J [facility] Feb 12, 2024 05:56 PM [...] Facility: Jan Method of Contact: Notified from [employer] worklist Notification ID: [id number] [facility] Referral #: [id number] clinical review [facility] Name: Hospital: [facility] Address: City: [place] State: [place] Chief complaint: pain and paresthesia RLE. No injury/trauma. Suspect PAD. Disposition Admitted Route of Admission: ER Date of Admission: Jan Admitting Diagnosis: peripheral artery disease Alerting PCP team to this note for continuity of care. Records relevant to this episode of care may be found in [facility]. The patient is currently [...] procedure. /bhaskar/ Tamika Slater MSN, RN V15 [facility] Resource [facility] Signed: 02/16/2024 18:01 Receipt Acknowledged By: 02/17/2024 08:41 /bhaskar/ SWATI SCHWARTZ, ANP- NURSE PRACTITIONER 02/20/2024 10:21 /bhaskar/ LALY CHAU RN, BSN Registered Nurse 02/19/2024 ADDENDUM STATUS: [...] to this note for continuity of care. [facility] [facility] team has also been alerted to this continuing stay via BMS. /es/ MARIE BURROWS REGISTERED NURSE Signed: 02/19/2024 13:58 Receipt Acknowledged By: 02/20/2024 08:49 /es/ COLBY NIELSEN- NURSE PRACTITIONER 02/19/2024 14:39 /es/ LALY CHAU RN, BSN Registered Nurse 02/23/2024 ADDENDUM STATUS: COMPLETED Discharge Disposition Date of discharge: Jan Disposition Discharge to home Records received for this EOC; sent to [facility] for scanning and shared securely with [place] PCP Team. The below is an excerpt from the discharge summary (final attending note if no DC summary available): Hospital Course: This is 54-year-old male with past medical history of hyperlipidemia, PTSD presented to emergency room complaint of right lower extremity pain and paresthesia. 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 He states he was seen outpatient at [facility] and was told to come to [facility] ED for suspected peripheral artery disease. Patient [...] schedule an appointment with the following provider(s): [facility] at [address] [phone] Schedule an appointment as soon as [...] AWAITING SIGNATURE * LALY CHAU KEVIN L [facility]
--- OUTSIDE RECORDS SUMMARY | 2024-07-19 13:53 | XMS_ITS | Encounter Summary ---
Author Name [facility] Address [address] [place] [address] Care Team Providers Care Delimber Operator Name Role Phone SWATI SCHWARTZ Primary Care [...] (PPO) H[employer] Mar 31, 2015 [id number] [phone] BERNICEDARION DOE PATIENT ANTHEM [employer] [place] PREFERRED PROVIDER ORGANIZAT ION (PPO) [employer] Mar 31, 2015 [id number] [phone] DARION QUEEN BROOK PATIENT [employer] ([employer]) PRESCRIPT ION REP WAGE Mar 31, 2004 [id number] [phone] PREMA QUEEN PATIENT Selected Encounter This section includes the information on record at [place] for the Encounter. Date/Time Encounter Type Encounter Description Reason Pro vider Source Apr 12, 2024 01:28 PM Outpatient Encounter GENERAL INTERNAL MEDICINE I[facility] Encounter Template Text not used by [place] Plan of Treatment: Future Appointments (+ 6 months) and Future Tests (+/- 45 days) The Plan of Treatment section includes future care activities for the patient from [facility] [place] [facility]. This section includes future appointments and future orders which are active, pending or scheduled. Future Appointments This section includes appointments that were scheduled to occur 6 months from the date of the Encounter, up to a maximum of 20 appointments. The data comes from all [facility]. Appointment Date/Time Appointment Type Appointme nt Facility Name May 19, 2024 09:00 AM AMBULATORY - MEDICINE [facility] Active, Pending, and Scheduled Orders This section includes a listing of several types of active, pending, and scheduled orders, including clinic medications orders, diagnostic test orders, procedure orders and consult orders; where the start date of the order is 45 days before the date of the Encounter or 45 days after the date of theEncounter. The data comes from all [facility]. Test Date/Time Test Type Test Details Facility Name May 20, 2024 12:00 AM Laboratory - Chemi stry Order PT/INR NEW (STL-PR) BLOOD PLASMA SP [facility] Social History: Smoking Status (Most current) and Tobacco Use (All prior to encounter date) This section includes the most current, and the historical, smoking and tobacco- related health factors from the [place] facility where the Encounter took place. Current Smoking Status This section includes the most current smoking, or tobacco-related health factor, from the [place] facility where the Encounter took place. Date/Time Current Smoking Status Comment Charly ity Oct 09, 2020 04:02 PM VA-TOBACCO USER EVERY DAY [facility] Tobacco Use History This section includes a history of the smoking, or tobacco-related health factors, that were collected on or before the date of the Encounter. The data comes from the [place] facility where the Encounter took place. Date/Time Smoking Status/Tobacco Use Comment F acility Oct 09, 2020 04:02 PM VA-TOBACCO USE > 1 5 LESS THAN 30 YEARS [facility] Oct 09, 2020 04:02 PM VA-TOBACCO USE ADVICE [facility] Oct 09, 2020 04:02 PM VA-TOBACCO USE OVERSEER KOSHER KITCHEN NO [facility] Oct 09, 2020 04:02 PM VA-TOBACCO USE MED NO [facility] Oct 09, 2020 04:02 PM VA-TOBACCO USER EVERY DAY [facility] Encounter Notes: All associated encounter notes This section contains the clinical notes associated to the Encounter. Date/Time Encounter Note(s) Provider Source Apr 12, 2024 01:28 PM NONVA NOTE: LOCAL TITLE: COMMUNITY CARE-CARE COORDINATION PLAN NOTE [id number] [facility] STANDARD TITLE: NONVA NOTE DATE OF NOTE: APR 12, 2024@13:28 ENTRY DATE: APR 12, 2024@13:28:23 AUTHOR: TALON CHURCHILL EXP COSIGNER: URGENCY: STATUS: COMPLETED Yissel from [facility] called [facility] inquiring on comm care auth for PT for to use as secondary insurance. Cut [place]yer advised prov there is no comm care auth on file for PT at this time and that would have to contact PCP at [place] to request comm care which may be approved or not. /[email or web address]/ TALON CHURCHILL Advanced Member [employer] Signed: 04/12/2024 13:33 TALON CHURCHILL [facility]
--- OUTSIDE RECORDS SUMMARY | 2024-07-19 13:53 | XMS_ITS | Referral Summary ---
Author Organization [facility] [address] [facility] Address [address] [place] [address] Care Team Providers Care Health And Wellness Manager Name Role Phone Pinky Zhu DO Primary Care Provider [phone]- [phone] Encounters Date Type Department Care Team Description 07/15/2024 Documentation [facility] Hematology [address] [place] [phone] Denisse Meehan RMA Pre Cert (FVL and Prothrombin Gene NPCR) 07/13/2024 9:45 AM CDT Telemedicine [facility] Hematology [address] [place] [address] [place] [phone] Sofie Young MD Embolus (HCC) (Primary Dx) 06/08/2024 Documentation [facility] Hematology [address] [place] [phone] Denisse Meehan RMA Pre Cert (Jak2, CALR and MPL NPCR) 06/08/2024 12:30 PM CDT Lab [facility] - Lab Collection [address] [place] [address] [address] [place] [address] Embolus (HCC) 06/08/2024 12:00 PM CDT Lab [facility] Oncology Lab [address] [place] [phone] 06/08/2024 11:00 AM CDT Office Visit [facility] Hematology [address] [place] [phone] Sofie Young MD Embolus (HCC) 06/01/2024 Telephone [facility] Hematology [address] [place] [phone] Denisse Meehan, ANNAMARIA from Last 3 Months Allergies No known [...] 04/14/2024 Assessment & Plan (04/14/2024 9:06 AM FRONT OFFICE COORDINATOR): Stable continue lisinopril Popliteal artery occlusion, 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 MARIA VICTORIA now at 0.7 2.8 qqns-dl-yjmsjgds disease. Continue anticoagulation. Noninvasives testing in 6 months. Hematology appointment May. Assessment & Plan (03/12/2024 10:49 AM FRONT OFFICE COORDINATOR): Right lower extremity acute limb ischemia status post lysis, aspiration thrombectomy with conversion to open thrombectomy by Colin Gomez MD. we will get baseline noninvasive testing. Continue HLD and Eliquis. Referral sent to hematology Hypertriglyceridemia 02/13/2024 Assessment & Plan (04/14/2024 9:05 AM FRONT OFFICE COORDINATOR): Stable continue Lipitor Major depressive disorder 02/12/2024 Hyperlipidemia 02/12/2024 PTSD (post-traumatic stress disorder) 02/12/2024 PAD (peripheral artery disease) 02/12/2024 Pain in shoulder 07/07/2015 Social History Tobacco Use Types Packs/Day Years Used Date Smoking Tobacco: Former Cigarettes 0.3 34 1 9 - 2022 Tobacco Cessation:Counseling Given: Not Answered [facility] [employer] Answer Date Recorded In the past 12 months has Sealed, gas, oil, or water NI threatened to shut off services in your home? No 02/13/2024 Social Connection and Isolation Panel [NHANES] A nswer Date Recorded In a typical week, how many times do you talk on the phone with family, friends, or neighbors? Three times a week 02/13/2024 How often do you get togethe r with friends or relatives? Twice a week 02/13/2024 How often do you attend [facility] or [facility] services? Never 02/13/2024 Do you belong to any clubs o r organizations such as jew groups, unions, fraternal or athletic groups, or [...] any time in the past 12 m [facility], were you homeless or living in a fdc (including now)? No 02/13/2024 Personal Safety Answer Date Recorded Have you ever been in or are you currently in a harmful physical or emotional relationship or is someone making you feel afraid or unsafe? Denies 03/29/2024 Sex and Gender Information Value Date Recorded Sex Assigned at Not on file Legal Sex Male 10:55 AM FRONT OFFICE COORDINATOR Gender Identity Not on file Sexual Orientation [...] 06/08/2024 10:58 AM CDT Plan of Treatment Not on file Medical Devices Implanted Type Area Crucible Furnace Tender Device Identifier Shelf Expiration Date Model / Serial / Lot [employer] System Closure Repair Femoral Artery Suture Mediated Perclose Prostyle 00695-05 - [id number] Implanted:Qty: 1 on 02/18/2024 by Colin Gomez MD at [facility] [employer] 10/28/2025 07735-89 / / [id number] [employer] Patch Vascuguard 0.88cm [id number] - [id number] Implanted:Qty: 1 on 02/19/2024 by Colin Gomez MD at [facility] Right: Popleteal Artery [employer] [id number] 09/14/2025 [id number] / / [id number] Description:Patch to poplite al artery and TP [...] JAK2/CALR/MPL testing cascade (06/08/2024 12:49 PM CDT) Pathologist [facility] JAK2 V617F Not Detected Not Detected [facility] JAK2 V617F Interpretation Not detected: JAK2 V617F mutation was not detected. As ordered, reflex testing for CALR and MPL mutations will be performed and reported separately. A negative JAK2 V617F result may be caused by one of several factors, including absence of Myeloproliferativ e Neoplasm (MPN) or presence of JAK2 [id number] MPN. A JAK2 V617F mutation is detected in 98% of patients with polycythemia vera (PV), 55% of patients with essential thrombocythemia (ET), and 60% of patients with primary myelofibrosis (PMF). This JAK2 V617F test result should be interpreted within the context of clinical and pathological findings for a definitive diagnosis. ANNIKA [facility] JAK2 V617F Specimen Blood [facility] JAK2 V617F Result Review Final report reviewed by: ELMIRA Rosales([facility]) [employer], on 06/10/2024 10:12:04 CDT. ANNIKA [facility] Comment: Interpretive Data Method: The assay detects the JAK2 V617F ([id number]: c.1849G>T) mutation using PCR primers and allele-specific dye-labeled oligonucleotides that exactly match the mutant or normal alleles. When perfectly hybridized to the template DNA sequence, the labeled oligonucleotides are cleaved by the 5 -> 3 exonuclease activity of DNA polymerase. Cleavage during the exponential phase of PCR releases the wire transfer clerk dye from the quencher and the signal [...] clinical laboratory testing. Literature References: 1. Kristy Obregon D, Leila R, Geovanny RC. Genetic basis and molecular profiling in myeloproliferative neoplasms. Blood. 2022Jul 18;14116):190 1 921. PMCID: [id number] This test was performed at: [facility], CLIA#[id number], Maria R Burciaga, Ph.D., [place], [address], [place] Current interpretive data was last revised 2023. Blood 06/08/2024 12:4 9 PM CDT 06/08/2024 2:35 PM CDT Sofie Young MD LAB GENETIC TESTING Final Result ANNIKA DANIELS [facility] Department [place] [address] [facility] * CALR with reflex to MPL (myeloproliferative neoplasm) (06/08/2024 12:49 PM CDT) CALR/MPL Specimen type PB CALR/MPL Result See Footnote ANNIKA HANLEY Comment:RESULT: see interpre tation CALR/MPL Final diagnosis See Footnote ANNIKA [facility] Comment: Peripheral blood, CALR mutation analysis, exon [...] mutation analysis: Genomic DNA was extracted and Blake sequencing used to evaluate for mutations in [...] suspicion is high for polycythemia vera and [id number] (JAK2B, JAK2M, or JAK2V) was tested negative, JAK2 Exon 12 analysis could be considered (JAKXB or JAKXM). Signing Pathologist: Brandon Rodriguez M.D. ADDITIONAL INFORMATION This test was developed and its performance characteristics determined by [facility] in a manner consistent with CLIA requirements. This test has not been cleared or approved by the U.S. Food and Drug Administration. Test Performed by: [address] [address] Adult Basic Education Teacher: Cyn Stearns Ph.D.; CLIA# [id number] Blood 06/08/2024 12:4 9 PM CDT 06/10/2024 3:15 PM CDT Narrative [facility] - 06/17/2024 9:59 AM CDT CALR, MPL Reflex order reflexed from JAK2/CALR/MPL testing cascade. Sofie Young MD LAB BLOOD ORDERABLES [place] l Result Performing Organization Address City/[facility]/ZIP Co de Phone Number [facility] [employer] [address] * (ABNORMAL) KLEVER ab ql w/rflx to [...] on 2019. KLEVER, quant 1:80 titer [facility] KLEVER, interp Homogeneous (A) [facility] Blood 06/08/2024 12:4 9 PM CDT 06/08/2024 2:16 PM CDT Sofie Young MD LAB BLOOD ORDERABLES [place] l Result Performing Organization Address City/[facility]/ZIP Co de Phone Number [facility] Department [place] [address] * eGFR (06/08/2024 12:49 PM CDT) [facility] eGFR 79 >=60 mL/min/1. 73 m2 Comment: [...] 9 PM CDT 06/08/2024 1:02 PM CDT us Sofie Young MD LAB BLOOD ORDERABLES [place] frank Result [facility] Department [place] [address] * Differential, auto (06/08/2024 12:49 PM CDT) [facility] Neutrophil abs 3.4 1.5 - 6.5 K/cumm Comment:Testing performed by : [facility], [address] [place] [phone] Lymphocyte abs 2.3 0.8 - 3.3 K/cumm ANNIKA HANLEY Comment:Testing performed by : [facility], [address] [place] [phone] Monocyte abs 0.5 0.2 - 0.8 K/cumm ANNIKA HANLEY Comment:Testing performed by : [facility], [address] [place] [phone] Eosinophil abs 0.1 0.0 - 0.5 K/cumm [facility] Comment:Testing performed by : [facility], [address] [place] [phone] Basophil abs 0.0 0.0 - 0.1 K/cumm [facility] Comment:Testing performed by : [facility], [address] [place] [phone] Neutrophil pct 53.6 % [facility] Comment: Interpretive Data Percent cell count reference ranges are not reported, since discordance with absolute values may lead to misinterpretation of CBC data. Current Interpretive Data was last revised on 2017. Testing performed by: [facility], [address] [place] [phone] Lymphocyte pct 35.9 % [facility] Comment: Interpretive Data Percent cell count reference ranges are not reported, since discordance with absolute values may lead to misinterpretation of CBC data. Current Interpretive Data was last revised on 2017. Testing performed by: [facility], [address] [place] [phone] Monocyte pct 8.2 % [facility] Comment: Interpretive Data Percent cell count reference ranges are not reported, since discordance with absolute values may lead to misinterpretation of CBC data. Current Interpretive Data was last revised on 2017. Testing performed by: [facility], [address] [place] [phone] Eosinophil pct 1.5 % [facility] Comment: Interpretive Data Percent cell count reference ranges are not reported, since discordance with absolute values may lead to misinterpretation of CBC data. Current Interpretive Data was last revised on 2017. Testing performed by: [facility], [address] [place] [phone] Basophil pct 0.8 % [facility] Comment: Interpretive Data Percent cell count reference ranges are not reported, since discordance with absolute values may lead to misinterpretation of CBC data. Current Interpretive Data was last revised on 2017. Testing performed by: [facility], [address] [place] [address] [place] [phone] Blood 06/08/2024 12:4 9 PM CDT 06/08/2024 1:00 PM CDT Sofie Young MD LAB BLOOD ORDERABLES Carey l Result Performing Organization Address [facility] Co de Phone Number [facility] Department [place] [address] * Cardiolipin antibody, IgG (06/08/2024 12:49 PM [...] BRENDA. These results were obtained with the [employer] 2200 System. Cardiolipin IgG values obtained with different manufacturers' assay methods may not be used interchangeably. Current interpretive data was last revised on 2016. Blood 06/08/2024 12:4 9 PM CDT 06/08/2024 2:16 PM CDT Sofie Young MD LAB BLOOD ORDERABLES [place] l Result Performing Organization Address [facility] Co de Phone Number [facility] Department [place] [address] * Beta 2 glycoprotein IgM Ab (06/08/2024 12:49 PM CDT) Beta-2 glycoprotein I, IgM 1.0 <=19.9 units/mL [...] factor. These results were obtained with the [employer] 2200 System. Beta-2 GP1 IgM values obtained with different manufacturers' assay methods may not be used interchangeably. Current interpretive data was last revised on 2016. Blood 06/08/2024 12:4 9 PM CDT 06/08/2024 2:16 PM CDT us Sofie Young MD LAB BLOOD ORDERABLES Carey frank Result Performing Organization Address City/State/[facility] Co de Phone Number [facility] Department [place] [address] * Beta 2 glycoprotein IgG Ab (06/08/2024 12:49 PM CDT) Beta-2 glycoprotein I, IgG <1.4 <=19.9 units/mL Comment: Interpretive Data Negative: <20 U/mL Positive: > or = 20 U/mL Beta-2 glycoprotein 1 (Beta-2 GP1) antibodies are a more specific marker of thrombotic risk. It is expected that some samples will be ACL positive and Beta- 2 BP1hscmlavx. In order to improve specificity, the International Congress on Antiphospholipid Antibodies recommends Beta-2 GP1 antibodies of IgG or IgM isotype (> the 99th percentile), obtained twice, at least 12 weeks apart, to support a diagnosis of antiphospholipid syndrome. The cutoff for this assay was developed from data based on the 99th percentile. These results were obtained with the [employer] 2200 System. Beta 2GP1 IgG values obtained with different manufacturers' assay methods may not be used interchangeably. Current interpretive data was last revised on 2016. Blood 06/08/2024 12:4 9 PM CDT 06/08/2024 2:16 PM CDT us Sofie Young MD LAB BLOOD ORDERABLES Carey frank Result ANNIKA HANLEY [facility] Department [place] [address] * CBC with auto differential (06/08/2024 12:49 PM CDT) Pathologist [facility] [place] WBC 6.4 3.8 - 9.9 K/cumm Comment:Testing performed by : [facility], [address] [place] [address] Hgb 15.9 13.0 - 17.5 g/dL ANNIKA HANLEY Comment:Testing performed by : [facility], [address] [place] [address] Hct 47.8 38.9 - 50.3 % ANNIKA HANLEY Comment:Testing performed by : [facility], [address] [place] [address] Plt 272 150 - 400 K/cumm ANNIKA HANLEY Comment:Testing performed by : [facility], [address] [place] [address] MPV 8.0 6.8 - 10.4 fL ANNIKA HANLEY Comment:Testing performed by : [facility], [address] [place] [address] RBC 5.52 4.30 - 5.80 M/cumm ANNIKA HANLEY Comment:Testing performed by : [facility], [address] [place], [place] [phone] MCV 86.6 81.3 - 96.4 fL ANNIKA [facility] Comment:Testing performed by : [facility], [address] [place], [place] [phone] MCH 28.8 27.1 - 33.3 pg ANNIKA [facility] Comment:Testing performed by : [facility], [address] [place], [place] [phone] MCHC 33.2 32.3 - 35.7 g/dL ANNIKA [facility] Comment:Testing performed by : [facility], [address] [place], [place] [phone] RDW CV 13.9 11.1 - 14.9 % ANNIKA [facility] Comment:Testing performed by : [facility], [address] [place], [place] [phone] NRBC abs 0.00 0.00 - 0.01 K/cumm ANNIKA [facility] Comment:Testing performed by : [facility], [address] [place], [place] [phone] Blood 06/08/2024 12:4 9 PM CDT 06/08/2024 1:00 PM CDT Sofie Young MD LAB BLOOD ORDERABLES Carey l Result [facility] Department [place] [address] * Cardiolipin antibody, IgM (06/08/2024 12:49 PM CDT) Pathologist [facility] Cardiolipin, IgM 1.4 <=19.9 MPL U/mL Comment: [...] antibodies. These results were obtained with the [employer] 2200 System. Cardiolipin IgM values obtained with different manufacturers' assay methods may not be used interchangeably. Current interpretive data was last revised on 2016. Blood 06/08/2024 12:4 9 PM CDT 06/08/2024 2:16 PM CDT Sofie Young MD LAB BLOOD ORDERABLES Carey l Result [facility] Department [place] [address] * [facility] profile (06/08/2024 12:49 PM CDT) [facility] RBC-CD59 Test Completed [facility] WBC-CD59 Test Completed [facility] FLAER Test Completed [facility] Interpretation See separate Surgical Pathology report. [facility] Blood 06/08/2024 12:4 9 PM CDT 06/08/2024 6:59 PM CDT Narrative [facility] - 06/08/2024 10:26 PM CDT This test was developed and its performance characteristics determined by the [facility] Flow Cytometry Laboratory. It has not [...] ORDERABLES Carey l Result Performing Organization Address City/[facility] Co de Phone Number [facility] [employer] [address] * Protein S antigen, free (06/08/2024 12:49 PM CDT) Protein S, free 112 55 - 150 % Blood 06/08/2024 12:4 9 PM CDT 06/08/2024 1:25 PM CDT Sofie Young MD LAB BLOOD ORDERABLES Carey l Result Performing Organization Address [facility] Co de Phone Number [facility] [employer] [address] * Protein C activity (06/08/2024 12:49 PM CDT) Protein C 139 60 - 150 % Blood 06/08/2024 12:4 9 PM CDT 06/08/2024 1:25 PM CDT Sofie Young MD LAB BLOOD ORDERABLES Carey l Result Performing Organization Address [facility] Co de Phone Number [facility] Department of [employer] [address] * (ABNORMAL) Antithrombin Activity (06/08/2024 12:49 PM CDT) Antithrombin III 129(H) 80 - 125 % Comment: Interpretive Data High concentrations of anti-Xa direct oral anticoagulants can cause Antithrombin activities to be falsely elevated. Current interpretive data was last reviewed 2023 Blood 06/08/2024 12:4 9 PM CDT 06/08/2024 1:25 PM CDT Sofie Young MD LAB BLOOD ORDERABLES [place] l Result Performing Organization Address City/[facility]/ZIP Co de Phone Number [facility] Department [place] [address] * Rheumatoid factor (06/08/2024 12:49 PM CDT) [facility] Rheumatoid factor, quant <10.0 0.1 - 15.0 IUnits/mL Blood 06/08/2024 12:4 9 PM CDT 06/08/2024 1:25 PM CDT Sofie Young MD LAB BLOOD ORDERABLES Carey l Result Performing Organization Address [facility] Co de Phone Number [facility] [place] [address] * Comprehensive metabolic panel (06/08/2024 12:49 PM CDT) [facility] Sodium 140 135 - 145 mmol/L Potassium, pl 4.5 3.3 - 4.9 mmol/L [facility] Chloride 103 97 - 110 mmol/L [facility] CO2 27 22 - 32 mmol/L [facility] Anion gap 10 2 - 15 mmol/L [facility] BUN 18 6 - 25 mg/dL [facility] Creatinine 1.10 0.80 - 1.30 mg/dL [facility] Glucose 86 70 - 199 mg/dL [facility] Comment: Interpretive Data Fasting glucose >/= [...] 2022. Calcium 10.0 8.5 - 10.3 mg/dL [facility] Bilirubin, total 0.2 0.1 - 1.2 mg/dL [facility] Protein, pl 8.0 6.5 - 8.5 g/dL [facility] Albumin 4.4 3.5 - 5.0 g/dL [facility] Alk phos 65 40 - 130 Units/L [facility] ALT 43 7 - 55 Units/L [facility] AST 42 10 - 50 Units/L [facility] Blood 06/08/2024 12:4 9 PM CDT 06/08/2024 1:02 PM CDT us Sofie Young MD LAB BLOOD ORDERABLES Carey frank Result [facility] Department [place] [address] * Surgical pathology (06/08/2024 12:49 PM CDT) Blood 06/08/2024 12:4 9 PM CDT 06/08/2024 6:40 PM CDT Narrative 06/09/2024 6:56 PM CDT EPIC results best viewed via link to PDF [facility]un[facility] [place] [address] Note to Patients: This report may contain [...] Gender: M : 1970 (Age: 54) Address: [address] [place] [phone] [facility] #: [id number] Taken:06/08/2024 Received:06/08/2024 Reported: 06/09/2024 Patient Type: [facility] Service: Laboratory Location: Physician(s): Sofie Young MD Diagnosis: Peripheral blood for [facility] flow cytometry: - No immunophenotypic evidence of paroxysmal nocturnal hemoglobinuria cgs/06/09/2024 12:03 By this signature, I attest that [...] antibodies to the following cellular antigens: CD45, RJ340x, CD15, CD59, FLAER. Total antigens analyzed: 5 [...] and Flow Cytometry Departments at [facility] as part of an ongoing food quality technician program and in compliance with federally mandated [...] and Flow Cytometry Departments of [facility]. It has not been cleared or approved by the U. S. Food and Drug Administration. IMAGES AND SCANNED DOCUMENTS, IF INCLUDED, ONLY VIEWABLE IN PDF VERSION OF REPORT Sofie Young MD LAB PATHOLOGY ORDERABLES Final Result from Last 3 Months Insurance [employer] [facility] [place] [address] [employer] Advance Directives For more information, please contact: [phone] * Full Code (Latest Code Status on File) Date Activated Date Inactivated Comments 02/19/2024 2:31 PM 02/21/2024 6:16 PM * Full Code Date Activated Date Inactivated Comments 02/12/2024 11:00 PM 02/19/2024 2:31 PM Care Teams Health And Wellness Manager Relationship Specialty Start Date End Date Pinky Zhu DO [facility] [address] [place] [address] [place] [id number] PCP - General Family Medicine 02/23/24
--- OUTSIDE RECORDS SUMMARY | 2024-07-19 13:53 | XMS_ITS | Continuity of Care Document ---
Author Name [facility] Organization [facility] Care Team Providers Care Hide And Skin Colerer Name Role Phone [facility] Unavailable Unavailable Problems Combined list of problems from [facility] and [facility] facilities. It does not include entries that were removed or entered in error. Problem Status Onset Date Problem Type Date of Resolution Comments Source History of SARS-CoV-2 Active 1 Condition [facility] Admits alcohol use Active Condition [facility] Depression ([facility] 71835248) Active Condition [facility] Erectile Dysfunction ([facility] 670641726) Active Condition [facility] Exposure to potentially hazardous substance Active Condition [facility] Hyperlipidemia ([facility] [id number]) Active Condition [facility] Hypersomnia Active Condition [facility] Past history of procedure Active Condition Nov 24, 2020 Entered By: KERVIN FERNANDEZ Comment: 08/2020, wisdom tooth extractions (2, 2) [facility] Posttraumatic stress disorder Active Condition [facility] Tobacco User ([facility] 725032368) Active Condition [facility] Diagnosis: ICD-10-CM Z86.718 Personal history of other venous thrombosis and embolism Active Diagnosis [facility] Diagnosis: ICD-10-CM E78.5 Hyperlipidemia, unspecified Active Diagnosis [facility] Medications Combined list of outpatient medications from [facility] and [facility] facilities.Medications provided include 1) outpatient medications [...] (APAP) FROM ALL MEDS. ORAL ACTIVE 05/20/2025 [id number] [facility] 2024 700 [facility] APIXABAN 5MG TAB TAKE ONE TABLET BY MOUTH TWICE A DAY ORAL ACTIVE [facility] 2024 [facility] ASPIRIN 81MG TAB,EC TAKE ONE TABLET BY MOUTH ONCE A DAY ORAL ACTIVE PACE,VICT OR 2020 [facility] ATORVASTATI N CA 20MG TAB TAKE ONE-HALF TABLET BY MOUTH EVERY EVENING ORAL ACTIVE PACE,VICT OR 2020 [facility] BUPROPION HCL 150MG 24HR TAB,SA TAKE ONE TABLET BY MOUTH ONCE A DAY ORAL ACTIVE [facility] 2023 [facility] CELECOXIB 200MG CAP TAKE ONE CAPSULE BY MOUTH ONCE A DAY FOR OSTEOART HRITIS TAKE WITH FOOD. ORAL DISCONT INUED BY PROVIDE R 12/18/2024 [id number] [facility] 2023 90 [facility] FISH OIL 1000MG (500MG DHA/EPA) CAP,ORAL TAKE 2 CAPSULES BY MOUTH ONCE A DAY ORAL ACTIVE ROSS,VICT OR 2020 [facility] LISINOPRIL 20MG TAB TAKE ONE-HALF TABLET BY MOUTH ONCE A DAY ORAL ACTIVE [facility] 2024 [facility] MELOXICAM 15MG TAB TAKE ONE TABLET BY MOUTH ONCE A DAY FOR PAIN OR INFLAMMA TION ORAL DISCONT INUED BY PROVIDE R 03/28/2024 [id number] ME [facility]IM[facility]ISA 2023 90 [facility] MULTIVITAMI NS CAP/TAB TAKE ONE TABLET BY MOUTH ONCE A DAY ORAL ACTIVE ROSS,VICT OR 2020 [facility] Immunizations Combined list of available immunizations from the Department of Defense and [facility] Affairs facilities. Immunization Series Date Given Administered By Site Reaction Lot Number CVX Code Drug Pharmacist Assistant Status Comments Source TDAP 2 2023 115 complet ed HISTORICA L INFORMATI ON - FROM OTHER [facility] TDAP 1 2022 115 complet ed HISTORICA L INFORMATI ON - FROM OTHER REGISTRY, [facility] N Results Combined list of recent [...] May 19, 2024 09:35 AM Reporting Lab: [address] [address] Performing Lab: [address] [address] [facility] IRON/TIBC PROFILE TRANSFERRI N [MASS/VOLU ME] IN SERUM OR PLASMA 281 mg/dL 163 - 344 05/20 Specimen Type: SERUM No comment entered. Ordering Provider: SWATI SCHWARTZ Report Released Date/Time: May 19, 2024 09:35 AM Reporting Lab: [facility] [address] [place] [address] Performing Lab: [address] [address] [facility] IRON/TIBC PROFILE IRON SATURATION [MASS FRACTION] IN SERUM OR PLASMA 25 20 - 50 05/20 Specimen Type: SERUM No comment entered. Ordering Provider: SWATI SCHWARTZ Report Released Date/Time: May 19, 2024 09:35 AM Reporting Lab: [address] [address] Performing Lab: [address] [address] [facility] IRON/TIBC PROFILE IRON [MASS/VOLU ME] IN SERUM OR PLASMA 88 ug/dL 65 - 175 05/20 Specimen Type: SERUM No comment entered. Ordering Provider: SWATI SCHWARTZ Report Released Date/Time: May 19, 2024 09:35 AM Reporting Lab: [place] [address] Performing Lab: [address] [phone] TSH (MA-PB) THYROTROPI N [UNITS/VOL UME] IN SERUM OR PLASMA 0.719 u[IU]/mL 0.47 - 5 05/20 Specimen Type: SERUM No comment entered. Ordering Provider: SWATI SCHWARTZ Report Released Date/Time: May 19, 2024 02:51 PM Reporting Lab: [place] [phone] Performing Lab: [address] CBC LEUKOCYTES [#/VOLUME] IN BLOOD BY AUTOMATED COUNT 5.9 10*3/uL 3.6 - 11.2 05/20 Specimen Type: BLOOD No comment entered. Ordering Provider: SWATI SCHWARTZ Report Released Date/Time: May 19, 2024 09:34 AM Reporting Lab: [address] [address] Performing Lab: [address] [phone] [place] [address] CBC ERYTHROCYT ES [#/VOLUME] IN BLOOD BY AUTOMATED COUNT 5.44 10*6/uL 4.10 - 5.70 05/20 Specimen Type: BLOOD No comment entered. Ordering Provider: SWATI SCHWARTZ Report Released Date/Time: May 19, 2024 09:34 AM Reporting Lab: [address] [address] Performing Lab: [address] [phone] [place] [address] CBC HEMOGLOBIN [MASS/VOLU ME] IN BLOOD 15.5 g/dL 13.1 - 16.8 05/20 Specimen Type: BLOOD No comment entered. Ordering Provider: SWATI SCHWARTZ Report Released Date/Time: May 19, 2024 09:34 AM Reporting Lab: [address] [address] Performing Lab: [address] [phone] [place] [address] CBC HEMATOCRIT [VOLUME FRACTION] OF BLOOD 46.8 38.2 - 48.4 05/20 Specimen Type: BLOOD No comment entered. Ordering Provider: SWATI SCHWARTZ Report Released Date/Time: May 19, 2024 09:34 AM Reporting Lab: [address] [address] Performing Lab: [address] [phone] [place] [address] CBC MCV [ENTITIC VOLUME] BY AUTOMATED COUNT 86.0 fL 80.0 - 100.0 05/20 Specimen Type: BLOOD No comment entered. Ordering Provider: SWATI SCHWARTZ Report Released Date/Time: May 19, 2024 09:34 AM Reporting Lab: [address] [address] Performing Lab: [address] [address] [facility] CBC MCH [ENTITIC MASS] BY AUTOMATED COUNT 28.5 pg 27.0 - 34.0 05/20 Specimen Type: BLOOD No comment entered. Ordering Provider: SWATI SCHWARTZ Report Released Date/Time: May 19, 2024 09:34 AM Reporting Lab: [address] [address] Performing Lab: [address] [address] [facility] CBC MCHC [MASS/VOLU ME] BY AUTOMATED COUNT 33.1 g/dL 33.0 - 36.0 05/20 Specimen Type: BLOOD No comment entered. Ordering Provider: SWATI SCHWARTZ Report Released Date/Time: May 19, 2024 09:34 AM Reporting Lab: [facility] [address] [place] [address] Performing Lab: [address] [address] [facility] CBC PLATELETS [#/VOLUME] IN BLOOD BY AUTOMATED COUNT 295 10*3/uL 150 - 400 05/20 Specimen Type: BLOOD No comment entered. Ordering Provider: SWATI SCHWARTZ Report Released Date/Time: May 19, 2024 09:34 AM Reporting Lab: [address] [address] Performing Lab: [address] [phone] [place] [address] CBC PLATELET MEAN VOLUME [ENTITIC VOLUME] IN BLOOD BY AUTOMATED COUNT 10.0 fL 7.5 - 11.2 05/20 Specimen Type: BLOOD No comment entered. Ordering Provider: SWATI SCHWARTZ Report Released Date/Time: May 19, 2024 09:34 AM Reporting Lab: [address] [address] Performing Lab: [address] [address] [facility] CBC ERYTHROCYT E DISTRIBUTI ON WIDTH [RATIO] BY AUTOMATED COUNT 13.0 11.8 - 15.1 05/20 Specimen Type: BLOOD No comment entered. Ordering Provider: SWATI SCHWARTZ Report Released Date/Time: May 19, 2024 09:34 AM Reporting Lab: [address] [address] Performing Lab: [address] [address] [facility] CBC LYMPHOCYTE S/100 LEUKOCYTES IN BLOOD BY AUTOMATED COUNT 42 05/20 Specimen Type: BLOOD No comment entered. Ordering Provider: SWATI SCHWARTZ Report Released Date/Time: May 19, 2024 09:34 AM Reporting Lab: [facility] [address] [facility] [address] Performing Lab: [facility] [address] [facility] [address] [facility] CBC MONOCYTES/ 100 LEUKOCYTES IN BLOOD BY AUTOMATED COUNT 10 05/20 Specimen Type: BLOOD No comment entered. Ordering Provider: SWATI SCHWARTZ Report Released Date/Time: May 19, 2024 09:34 AM Reporting Lab: [facility] [address] [facility] [address] Performing Lab: [facility] [address] [facility] [address] [facility] CBC NEUTROPHIL S/100 LEUKOCYTES IN BLOOD BY AUTOMATED COUNT 44 05/20 Specimen Type: BLOOD No comment entered. Ordering Provider: SWATI SCHWARTZ Report Released Date/Time: May 19, 2024 09:34 AM Reporting Lab: [facility] [address] [facility] [address] Performing Lab: [facility] [address] [facility] [address] [facility] CBC EOSINOPHIL S/100 LEUKOCYTES IN BLOOD BY AUTOMATED COUNT 4 05/20 Specimen Type: BLOOD No comment entered. Ordering Provider: SWATI SCHWARTZ Report Released Date/Time: May 19, 2024 09:34 AM Reporting Lab: [facility] [address] [facility] [address] Performing Lab: [facility] [address] [facility] [address] [facility] CBC BASOPHILS/ 100 LEUKOCYTES IN BLOOD BY AUTOMATED COUNT 1 05/20 Specimen Type: BLOOD No comment entered. Ordering Provider: SWATI SCHWARTZ Report Released Date/Time: May 19, 2024 09:34 AM Reporting Lab: [facility] [address] [place] [address] Performing Lab: [address] [address] [facility] CBC LYMPHOCYTE S [#/VOLUME] IN BLOOD BY AUTOMATED COUNT 2.47 10*3/uL 0.77 - 4.50 05/20 Specimen Type: BLOOD No comment entered. Ordering Provider: SWATI SCHWARTZ Report Released Date/Time: May 19, 2024 09:34 AM Reporting Lab: [address] [address] Performing Lab: [address] [address] [facility] CBC MONOCYTES [#/VOLUME] IN BLOOD BY AUTOMATED COUNT 0.59 10*3/uL 0.19 - 0.80 05/20 Specimen Type: BLOOD No comment entered. Ordering Provider: SWATI SCHWARTZ Report Released Date/Time: May 19, 2024 09:34 AM Reporting Lab: [address] [address] Performing Lab: [address] [address] [facility] CBC NEUTROPHIL S [#/VOLUME] IN BLOOD BY AUTOMATED COUNT 2.61 10*3/uL 2.10 - 8.00 05/20 Specimen Type: BLOOD No comment entered. Ordering Provider: SWATI SCHWARTZ Report Released Date/Time: May 19, 2024 09:34 AM Reporting Lab: [address] [address] Performing Lab: [address] [address] [facility] CBC EOSINOPHIL S [#/VOLUME] IN BLOOD BY AUTOMATED COUNT 0.21 10*3/uL 0.00 - 0.60 05/20 Specimen Type: BLOOD No comment entered. Ordering Provider: SWATI SCHWARTZ Report Released Date/Time: May 19, 2024 09:34 AM Reporting Lab: [facility] [address] [facility] [address] Performing Lab: [facility] [address] [facility] [address] [facility] CBC BASOPHILS [#/VOLUME] IN BLOOD BY AUTOMATED COUNT 0.05 10*3/uL 0.00 - 0.20 05/20 Specimen Type: BLOOD No comment entered. Ordering Provider: SWATI SCHWARTZ Report Released Date/Time: May 19, 2024 09:34 AM Reporting Lab: [facility] [address] [facility] [address] Performing Lab: [facility] [address] [facility] [address] [facility] COMPREHEN SIVE METABOLIC PANEL CREATININE [MASS/VOLU ME] IN SERUM OR PLASMA 1.05 mg/dL 0.7 - 1.3 05/20 Specimen Type: PLASMA Comment: No hemolysis noted. Ordering Provider: SWATI SCHWARTZ Report Released Date/Time: May 19, 2024 09:34 AM Reporting Lab: [facility] [address] [facility] [address] Performing Lab: [address] [address] [facility] COMPREHEN SIVE METABOLIC PANEL UREA NITROGEN [MASS/VOLU ME] IN SERUM OR PLASMA 13.4 mg/dL 9.0 - 25.0 05/20 Specimen Type: PLASMA Comment: No hemolysis noted. Ordering Provider: SWATI SCHWARTZ Report Released Date/Time: May 19, 2024 09:34 AM Reporting Lab: [facility] [address] [facility] [address] Performing Lab: [facility] [address] [place] [address] [facility] COMPREHEN SIVE METABOLIC PANEL GLUCOSE [MASS/VOLU ME] IN SERUM OR PLASMA 108 mg/dL 72 - 99 05/20 H Specimen Type: PLASMA Comment: No hemolysis noted. Ordering Provider: SWATI SCHWARTZ Report Released Date/Time: May 19, 2024 09:34 AM Reporting Lab: [facility] [address] [facility] [address] Performing Lab: [facility] [address] [facility] [address] [facility] COMPREHEN SIVE METABOLIC PANEL SODIUM [MOLES/VOL UME] IN SERUM OR PLASMA 138 meq/L 136 - 145 05/20 Specimen Type: PLASMA Comment: No hemolysis noted. Ordering Provider: SWATI SCHWARTZ Report Released Date/Time: May 19, 2024 09:34 AM Reporting Lab: [facility] [address] [facility] [address] Performing Lab: [facility] [address] [place] [address] [facility] COMPREHEN SIVE METABOLIC PANEL POTASSIUM [MOLES/VOL UME] IN SERUM OR PLASMA 4.2 meq/L 3.5 - 5 05/20 Specimen Type: PLASMA Comment: No hemolysis noted. Ordering Provider: SWATI SCHWARTZ Report Released Date/Time: May 19, 2024 09:34 AM Reporting Lab: [facility] [address] [facility] [address] Performing Lab: [facility] [address] [facility] [address] [facility] COMPREHEN SIVE METABOLIC PANEL CHLORIDE [MOLES/VOL UME] IN SERUM OR PLASMA 106 meq/L 98 - 107 05/20 Specimen Type: PLASMA Comment: No hemolysis noted. Ordering Provider: SWATI SCHWARTZ Report Released Date/Time: May 19, 2024 09:34 AM Reporting Lab: [facility] [address] [facility] [address] Performing Lab: [facility] [address] [facility] [address] [facility] COMPREHEN SIVE METABOLIC PANEL CARBON DIOXIDE, TOTAL [MOLES/VOL UME] IN SERUM OR PLASMA 21 meq/L 22 - 31 05/20 L Specimen Type: PLASMA Comment: No hemolysis noted. Ordering Provider: SWATI SCHWARTZ Report Released Date/Time: May 19, 2024 09:34 AM Reporting Lab: [facility] [address] [facility] [address] Performing Lab: [place] [address] [facility] [address] [facility] COMPREHEN SIVE METABOLIC PANEL CALCIUM [MASS/VOLU ME] IN SERUM OR PLASMA 9.6 mg/dL 8.4 - 10.4 05/20 Specimen Type: PLASMA Comment: No hemolysis noted. Ordering Provider: SWATI SCHWARTZ Report Released Date/Time: May 19, 2024 09:34 AM Reporting Lab: [place] [address] [facility] [address] Performing Lab: [place] [address] [facility] [address] [facility] COMPREHEN SIVE METABOLIC PANEL PROTEIN [MASS/VOLU ME] IN SERUM OR PLASMA 7.6 g/dL 6 - 8.6 05/20 Specimen Type: PLASMA Comment: No hemolysis noted. Ordering Provider: SWATI SCHWARTZ Report Released Date/Time: May 19, 2024 09:34 AM Reporting Lab: [place] [address] [facility] [address] Performing Lab: [place] [address] [facility] [address] [facility] COMPREHEN SIVE METABOLIC PANEL ALBUMIN [MASS/VOLU ME] IN SERUM OR PLASMA 4.2 g/dL 3.4 - 5 05/20 Specimen Type: PLASMA Comment: No hemolysis noted. Ordering Provider: SWATI SCHWARTZ Report Released Date/Time: May 19, 2024 09:34 AM Reporting Lab: [place] [address] [facility] [address] Performing Lab: [facility] [address] [facility] [address] [facility] COMPREHEN SIVE METABOLIC PANEL BILIRUBIN. TOTAL [MASS/VOLU ME] IN SERUM OR PLASMA 0.6 mg/dL 0.2 - 1.2 05/20 Specimen Type: PLASMA Comment: No hemolysis noted. Ordering Provider: SWATI SCHWARTZ Report Released Date/Time: May 19, 2024 09:34 AM Reporting Lab: [address] [address] Performing Lab: [address] [address] [facility] COMPREHEN SIVE METABOLIC PANEL ALKALINE PHOSPHATAS E [ENZYMATIC ACTIVITY/V OLUME] IN SERUM OR PLASMA 71 U/L 40 - 150 05/20 Specimen Type: PLASMA Comment: No hemolysis noted. Ordering Provider: SWATI SCHWARTZ Report Released Date/Time: May 19, 2024 09:34 AM Reporting Lab: [place] [address] [facility] [address] Performing Lab: [address] [address] [facility] COMPREHEN SIVE METABOLIC PANEL ASPARTATE AMINOTRANS FERASE [ENZYMATIC ACTIVITY/V OLUME] IN SERUM OR PLASMA 68 U/L 5 - 34 05/20 H Specimen Type: PLASMA Comment: No hemolysis noted. Ordering Provider: SWATI SCHWARTZ Report Released Date/Time: May 19, 2024 09:34 AM Reporting Lab: [facility] [address] [place] [address] Performing Lab: [address] [address] [facility] COMPREHEN SIVE METABOLIC PANEL ALANINE AMINOTRANS FERASE [ENZYMATIC ACTIVITY/V OLUME] IN SERUM OR PLASMA 76 U/L 8 - 40 05/20 H Specimen Type: PLASMA Comment: No hemolysis noted. Ordering Provider: SWATI SCHWARTZ Report Released Date/Time: May 19, 2024 09:34 AM Reporting Lab: [facility] [address] [place] [address] Performing Lab: [address] [phone] [place] [address] COMPREHEN SIVE METABOLIC PANEL GLOMERULAR FILTRATION RATE/1.73 SQ M.PREDICTE D [VOLUME RATE/AREA] IN SERUM, PLASMA OR BLOOD BY CREATININE -BASED FORMULA (CKD-EPI 2020) 83.8 60 05/20 Specimen Type: PLASMA Comment: No hemolysis noted. Ordering Provider: SWATI SHCWARTZ Report Released Date/Time: May 19, 2024 09:34 AM Reporting Lab: [address] [address] Performing Lab: [address] [phone] [place] [address] POC INR (STL-RX MONITORIN G ONLY) INR IN BLOOD BY COAGULATIO N ASSAY 1.1 {INR} 0.9 - 1.1 05/20 Specimen Type: BLOOD Comment: Test Performed by: [id number] Meter #: [id number] Ordering Provider: KULWANT GORDILLO Report Released Date/Time: May 20, 2024 01:59 PM Reporting Lab: [address] [address] Performing Lab: [facility] [address] [place] [address] [facility] OCCULT BLOOD FIT X1 SCREEN (MFP ONLY) HEMOGLOBIN .GASTROINT ESTINAL.LO WER [PRESENCE] IN STOOL BY IMMUNOASSA Y Negative 02/04 Specimen Type: FECES No comment entered. Ordering Provider: SWATI SCHWARTZ Report Released Date/Time: Dec 22, 2023 11:57 AM Reporting Lab: [facility] [address] [place] [address] Performing Lab: [address] [phone] [place] [address] Vital Signs Combined list of inpatient and outpatient Vital Signs from Department of [facility] and Veterans Affairs, ranging from 12 months to all on record, depending upon the facility. Vital Sign Value Date Comments Source SYSTOLIC BLOOD PRESSURE 130 12/18/2023 13:32:36 [facility] DIASTOLIC BLOOD PRESSURE 75 12/18/2023 13:32:36 [facility] PULSE OXIMETRY 97 12/18/2023 13:32:36 [facility] WEIGHT 168 12/18/2023 13:32:36 [facility] BMI 28 kg/m2 12/18/2023 13:32:[facility] PAIN 7 12/18/2023 13[facility]32:36 [facility] HEIGHT 65 12/18/2023 13:32:[facility] TEMPERATURE 98.7 12/18/2023 13:32:36 [facility] PULSE 65 12/18/2023 13:32:36 [facility] RESPIRATION 18 12/18/2023 13:32:36 [facility] Encounters Combined list of: 1) Encounters from Department of Veterans Affairs facilities going backup to the last 18 months, not all VA inpatient encounters are included; 2) Encounters from the Department of [facility] facilities going backup to 280 months. Location Location Details Encounter Type Encounter Number Reason For Visit Attending Provider ADM Date DC Date Status Disposition Source [facility] Outpatient Encounter [id number] 03/28 [facility] Outpatient Encounter [id number] 06/25 [facility] Outpatient Encounter [id number] 08/31 [facility] Outpatient Encounter [id number] 12/17 [facility] MOD 30 MIN [id number] Diagnos is: ICD-10- CM E78.5 Hyperli pidemia , unspeci fied SWATI SCHWARTZ 12/17 [facility] Outpatient Encounter [id number] WILLIAN SLATER L 02/15 [facility] Outpatient Encounter [id number] 04/01 [facility] Outpatient Encounter [id number] SWATI SCHWARTZ 04/02 [facility] Outpatient Encounter [id number] 04/12 [facility] Outpatient Encounter [id number] 05/10 [facility] SYNCH AUDIO-ONLY NEW HIGH 60 [id number] Diagnos is: ICD-10- CM Z86.718 Persona l history of other venous thrombo sis and embolis SWATI Moreland 05/19 [facility] Outpatient Encounter [id number] 05/28 [facility] Outpatient Encounter [id number] 07/05 [facility] Social History Combined list of available smoking, tobacco, and other social history from Department of Defense and Veterans Affairs facilities. Social History Type Response Date Comment [facility] e Tobacco smoking status NHIS VA-TOBACCO FORMER USER 12/18/20[address] [facility] History of tobacco use VA-TOBACCO QUIT 1 TO < 5 YRS 12/18/2023 [facility] History of tobacco use VA-TOBACCO USER S OME DAYS [facility] History of tobacco use VA-TOBACCO USER E VERY DAY 10/09/2020 [facility] This section is an empty social history section. [facility] Plan of Care List of future care activities from Department of Veterans Affairs facilities. Additional future care activities may be listed in the Assessment and Plan section. Date/Time Care Activity Care Activity Detail Facili ty 12/17/2024 AMBULATORY - NONE AMBULATORY - NONE [facility]
--- OUTSIDE RECORDS SUMMARY | 2024-07-19 13:53 | XMS_ITS | Encounter Summary ---
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 Date/Time Encounter Type Encounter Description Reason Pro vider Source IHE Encounter Template Text not used by VA
--- OUTSIDE RECORDS SUMMARY | 2024-07-19 13:53 | XMS_ITS | Encounter Summary ---
Author Name [facility] Organization [facility] Address [address] [place] [address] Care Team Providers Care Content Production Specialist Name Role Phone SWATI SCHWARTZ Primary Care [...] (PPO) HIGHM [employer]K [employer]BS Mar 31, 2015 [id number] [phone] BERNICEDARION DOE PATIENT AN[place]M [employer] [place] PREFERRED PROVIDER ORGANIZAT ION (PPO) HIGHM ARK [employer]BS Mar 31, 2015 [id number] [phone] BERNICEDARION DOE PATIENT [employer] ([employer]) PRESCRIPT ION REP WAGE Mar 31, 2004 [id number] [phone] PREMA QUEEN PATIENT Selected Encounter This section [...] [facility] the [facility] This section includes future appointments and [...] 19, 2024 09:00 AM AMBULATORY - MEDICINE [facility] Social History: Smoking Status (Most current) and [...] 2020 04:02 PM VA-TOBACCO USER EVERY DAY [facility] Tobacco Use History This section includes a history of the smoking, or tobacco-related health factors, that were collected on or before the date of the Encounter. The data comes from the [place] facility where the Encounter took place. 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 Date/Time Encounter Note(s) Provider Source Mar 29, 2024 10:51 AM NONVA NOTE: LOCAL TITLE: [facility] CARE COORD PLAN STANDARD TITLE: NONVA NOTE DATE OF NOTE: MAR 29, 2024@10:51 ENTRY DATE: APR 02, 2024@10:51:58 AUTHOR: RADUJune COSIGNER: URGENCY: STATUS: COMPLETED Emergency Notification Intake Date Presenting to the Facility: Feb Method of Contact: Notified from ECR worklist Notification ID: [id number] [facility] Referral #: [id number] Clinical Review [facility] Name: Hospital: [facility] Address: [address] [place] [address] City: [place] State: [place] Zip Code: [address] Chief complaint: TESTING OF BLOOD CLOTS, SCIATICA [...] be found in JLV; also sent to [facility] for scanning. Please review attached DC summary and place any necessary referrals/consults LUIS CARLOS to avoid non-payment for follow-up services. 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
[2024-07-19 14:06] LABS: Alanine Aminotransferase 41 U/L (6-50); Albumin Level 4.2 g/dL (3.5-5.1); Alkaline Phosphatase 52 U/L (38-126); Anion Gap 7 mmol/L (4-12); Aspartate Amino Transferase 47 U/L (17-59); Bilirubin,Total 0.4 mg/dL (0.2-1.3); Blood Urea Nitrogen 24 mg/dL (9-20); Calcium 9.3 mg/dL (8.4-10.2); Carbon Dioxide 28 mmol/L (22-30); Chloride 105 mmol/L (98-107); Cholesterol 181 mg/dL (0-200); Estimated Glomerular Filt Rate > 60; Glucose 93 mg/dL (65-110); HDL Direct 52 mg/dL; Potassium 4.6 mmol/L (3.4-5.0); Sodium 140 mmol/L (137-145); Triglycerides 171 mg/dL (<150)
[2024-07-19 14:07] LABS: LDL Cholesterol Direct 91 mg/dL
[2024-07-19 14:27] LABS: Prostate Specific Antigen 0.8 ng/mL (< OR = 4.0); Thyroid Stimulating Hormone 0.824 uIU/mL (0.465-4.680)
== END 2024-07-19 12:28 | disposition home or self-care (01) ==
LOC: ANHGOSHLAB 12:28
PROVIDERS: PCP Family Medicine; Visit Provider Family Medicine
DX: Z12.5 Encounter for screening for malignant neoplasm of prostate (principal); F43.10 Post-traumatic stress disorder, unspecified; E78.2 Mixed hyperlipidemia; E66.3 Overweight; R74.8 Abnormal levels of other serum enzymes; Z79.899 Other long term (current) drug therapy
CPT/HCPCS: 36415; 80053; 80061; 84153; 84443; 85027; G0103

== ENCOUNTER 2025-02-06 09:50 | Emergency (ER) | payer BC, OTHER, SELFPAY ==
--- OUTSIDE RECORDS SUMMARY | 2018-03-13 04:25 | XMS_ITS | Continuity of Care Document ---
Author Organization [facility] Address [id number] [place] [address] [address] [place] [address] Phone Care Team Providers Care Strip Roller Name Role Phone Ryan OD OD, Linda Unavailable Unavai lable Allergies, Adverse Reactions, Alerts Substance Reaction Status Criticality No Known Allergies Active No Inform ation Procedures Procedure Date OFFICE/OUTPATIENT VISIT, EST EYE EXAM WITH PHOTOS Advance Directives Directive Yes / No Effective Date File Name No Information Encounters Encounter Description Practice Location Reason(s) For Visit Diagnoses Date Provider Providers Copied on Encounter OFFICE/OUTPA TIENT VISIT, EST [facility], [id number] [place], [place] [address], [place], [place], [id number], tel:[phone] OPH [facility] [place] blurry vision (chief complaint) PresbyopiaOther vitreous opacities, bilateralPingue cula of left eyeDry eye syndrome of bilateral lacrimal glands 8 Ryan OD Linda. [address] , [address], [place], [place], [id number], [place]. tel:[phone] Referring Provider: Linda Davis OD, [address], [place], [address] . tel:[phone] Family History Family Member Type Diagnosis Age At Onset Problem (finding) No family history of Di abetes mellitus Problem (finding) No family hist ory of Macular degeneration Problem (finding) No family history of Hy pertension Problem (finding) No family history of Gl [place] Payers Payer name Insurance type Covered republican ID Authoriza tion(s) [facility] [id number] Social History Type Description Quantity Date Captured Comments Alcohol Use Details Caffeine Use Details Unknown Tobacco Use Status Heavy cigarette smok er (20-39 cigs/day) Smoking Status Heavy tobacco smoker Smoking Tobacco Use Details Cigarette: No Details Available Cigarette: 1 Packs per day Sex Male Chief Complaint And Reason For Visit From encounter dated '03/13/2018 10:25'. blurry vision (chief complaint). Description: The 48 year old male presents for evaluation of blurry vision. Pt reports a gradual decrease in near vision over the last 5 years, but seems to be progressing more rapidly over the last year. Distance vision seems stable. Wears OCT readers when remembers. Doesn't wear distance glasses or CTL's.Testing today: Optical Biometry, corneal topography, Optos, Pachymetry. Reason For Referral Reason For Referral No Information History Of Present Illness Encounter Date Complaint History Of Prese nt Illness blurry vision The 48 year old male presents for evaluation of blurry vision. Pt reports a gradual decrease in near vision over the last 5 years, but seems to be progressing more rapidly over the last year. Distance vision seems stable. Wears OCT readers when remembers. Doesn't wear distance glasses or CTL's.Testing today: Optical Biometry, corneal topography, Optos, Pachymetry. Functional Status Date Functional Assessmen t No Information Instructions Date Instruction Additional Infor mation Impression/Plan Related to Other vitreous opacities, bilateral Impression/Plan Related to Presb yopia Impression/Plan Related to Dry e ye syndrome of bilateral lacrimal glands Impression/Plan Related to Pingu ecula of left eye Assessments Type Assessment Date assessment Presbyopia assessment Other vitreous opacities, bilate ral impression Other vitreous opacities, bilate ral: H43.393 impression Presbyopia: H52.4 assessment Pinguecula of left eye 18 assessment Dry eye syndrome of bilateral la crimal glands impression Dry eye syndrome of bilateral la crimal glands: H04.123 impression Pinguecula of left eye: H11.152 Patient Care Teams Name Effective Dates (start - stop) Status Members No Information
--- NOTE | ~2025-02-06 | XR_ITS ---
Examination: XR shoulder RT min 2V, XR elbow LT min 3V Clinical History: Trauma Comparison: None Technique: 4 views right shoulder, 3 views left elbow Findings/impression: Right shoulder: 1. No fracture or dislocation. Left elbow: 1. Tiny avulsion fracture olecranon process triceps insertion site possible. 2. Otherwise no fracture or dislocation. Reviewed, dictated and finalized at location R. RN RETAIL
--- NOTE | ~2025-02-06 | CT_ITS ---
EXAMINATION: CT elbow LT wo con COMPARISON: None HISTORY: Questionable avulsion fracture TECHNIQUE: Axial images were obtained without IV contrast. Sagittal, coronal reconstruction images were obtained from the axial views. CT scan performed using dose optimization techniques including the following automated exposure control; adjustment of mA and/or kV; use of iterative reconstruction technique. Automatic exposure control was used to reduce radiation dose. Permanent radiation dose record is archived to PACS. FINDINGS: There is no intramuscular hemorrhage identified. There is no joint effusion demonstrated. Minimal stranding within the subcutaneous tissues. There is a tiny corticated appearing avulsion fracture arising from the medial epicondyles. No acute fracture or dislocation. There are minimal degenerative changes noted with calcific tendinopathy. IMPRESSION: No acute fracture Reviewed, dictated and finalized at location P. PLANT MANAGER IMPRESSION: No acute fracture
--- NOTE | ~2025-02-06 | XR_ITS ---
Examination: XR elbow RT min 3V Clinical History: Wrestling Comparison: No Technique: 3 views right elbow Findings/impression: 1. No fracture or dislocation right elbow. Reviewed, dictated and finalized at location [facility]. [place]
[2025-02-06 10:02] VITALS: BP 129/85; PULSE 65; RESP 16; TEMP 36.6; O2SAT 100
--- NOTE | 2025-02-06 10:12 | ED.UPPEXIN ---
HPI - Extremity Injury (Upper) General Chief Complaint: Extremity Injury, Upper Stated Complaint: right shoulder injury Time Seen by Provider: 02/06/25 10:06 Source: patient Mode of arrival: ambulatory Limitations: no limitations History of Present Illness HPI narrative: 55 years old white male, was wrestling last night, complaining of right shoulder pain and left elbow pain. Patient reported right shoulder probably got dislocated at that time , somehow went back He denies other injuries. Related Data Allergies Allergy/AdvReac Type Severity Reaction Status Date / Time No Known Allergies Allergy Verified 02/06/25 10:04 Review of Systems Review of Systems: All systems reviewed & are unremarkable except as noted in HPI and below PMFSH Past Medical History Medical History Colon cancer screening Rotator cuff tendonitis Biceps tendonitis on right Right shoulder pain Right knee pain Foot pain, bilateral Elevated blood pressure reading in office without diagnosis of hypertension Screening for prostate cancer Pain of left great toe Depression [facility] use of drug Lesion of penis Elevated liver enzymes Mixed hyperlipidemia Overweight Family History Family History Father Diabetes mellitus Hypertension Family history of elevated blood lipids Acute myocardial infarction, Onset Age: 56 Family history of coronary artery disease Mother Hypertension Family history of elevated blood lipids Grandparent Acute myocardial infarction Family history of coronary artery disease Social History Social History Smoking packs per day: 0.5 Smoking cigarettes per day: 10.0 Years smoked: 20 Smoking pack-years: 10.00 Tobacco type: cigarettes Alcohol intake: current Drinks per week: 1 Alcohol use details: 1 drink per week pt. decreased intake. Substance use: current Substance use type: marijuana Other substance usage details: medical card for PTSD Lack of Transportation: No Lack of Food: Never True Current Housing: I Have Housing Concerned About Future Housing: No Difficulty Paying Gas/Electric Bills: No Difficulty Paying for Meds: No Currently Unemployed: No Education: High School Diploma/GED Difficulty w/ Childcare or Family Care: No Spiritual care concerns: No Exam Narrative: General appearance: Well-developed, well-nourished Skin: Normal color Head: Normocephalic, nontraumatic Eyes: Clear conjunctiva ENT: Oropharynx normal, ears normal, nose normal Neck: Supple, nontender Chest and respiratory: Airway patent, no respiratory distress, no accessory muscle use Heart: Regular rate/rhythm Abdomen: Soft, nontender, no organomegaly, quiet bowel sounds Vascular: Normal peripheral pulses, normal capillary refill. Musculoskeletal: Right shoulder exam showed no deformity, diffuse tenderness, severe limited range of motion, patient able to abduct right shoulder up to 30 degree. 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 as tested, no gross motor deficit Course Vital Signs Vital signs: Vital Signs Temperature 36.6 C 02/06/25 10:02 Pulse Rate 65 02/06/25 10:02 Respiratory Rate 16 02/06/25 10:02 Blood Pressure 129/85 02/06/25 10:02 Pulse Oximetry 100 02/06/25 10:02 Oxygen Delivery Room Air 02/06/25 10:02 Temperature 36.6 C 02/06/25 10:02 Pulse Rate 59 L 02/06/25 13:33 Respiratory Rate 16 02/06/25 13:33 Blood Pressure 134/89 02/06/25 13:33 Pulse Oximetry 100 02/06/25 13:33 Oxygen Delivery Room Air 02/06/25 10:02 MDM - Extremity Injury (Upper) MDM Narrative Medical decision making narrative: Differential diagnosis include sprain/strain of the right shoulder, rotator cuff injury, left elbow sprain/strain. X-ray of the right shoulder showed no acute abnormality X-ray of the left elbow showed possible avulsion fracture X-ray of the right elbow showed no acute osseous abnormality CT left elbow without contrast showed no fracture Diagnosis right rotator cuff injury, elbow strain/sprain The pt was discharged to home.the pt,s condition upon discharge was fair,education was provided to the pt in reference to the final impression,discharge study results,treatment,prognosis and need for follow up . Differential Diagnosis Differential diagnosis: Likely dislocation of shoulder and fracture of humerus Imaging Data My impression: X-ray of the right shoulder showed no acute abnormality X-ray of the left elbow showed questionable avulsion fracture CT left elbow without contrast showed no fracture X-ray of the right elbow showed no acute abnormalities Radiologist's impression: Impressions Elbow CT 02/06/25 14:36 IMPRESSION: No acute fracture Critical Care Time Critical Care Time Critical Care Time: No Discharge Plan Discharge Clinical Impression: Injury of muscle or tendon of right rotator cuff, Elbow sprain Patient Disposition: Home Condition: Stable Instructions: Rotator Cuff Injury (ED), Elbow Sprain (ED), Rotator Cuff Injury Exercises (DC) Additional Instructions: Return if symptoms are worsening , call your family physician/orthopedic for appointment, take Tylenol, ibuprofen as as needed for aches and pain, continue home medications. Patient Language: Bulgarian Prescriptions: No Action (DME) CPAP See Rx Instructions .Route .MEDSUPPLY Qty: 1 0RF Rx Instructions: CPAP of 11cm with full face mask and tubing tramadol 50 mg tablet 50 mg PO Q4H PRN (Reason: pain) Qty: 30 0RF Eliquis 5 mg tablet 5 mg PO BID Qty: 180 1RF bupropion HCl 150 mg tablet extended release 24 hr 150 mg PO DAILY Qty: 90 1RF atorvastatin [Lipitor] 20 mg tablet 20 mg PO QHS Qty: 90 1RF lisinopril 10 mg tablet 10 mg PO DAILY Qty: 90 1RF tadalafil [Cialis] 10 mg tablet 10 mg PO DAILY PRN (Reason: sexual activity) Qty: 30 2RF Rx Instructions: administer approximately 30min before sexual activity; Follow-up/Referrals: Nicholas Root MD [Physician, Orthopedics] - 02/09/25 Pinky Zhu DO [Primary Care Provider, Family Practice]
[2025-02-06] MEDS: HYDROcodone/acetaminophen (*CRX) 5-325 MG TABLET 1 TAB PO (11:10)
--- NOTE | 2025-02-06 11:36 | PC.NURSE ---
Patient stated he is also having pains in his right elbow. MD notified.
[2025-02-06 13:33] VITALS: BP 134/89; PULSE 59; RESP 16; O2SAT 100
== END 2025-02-06 15:22 | disposition home or self-care (01) ==
PROVIDERS: Emergency Provider Emergency Medicine; PCP Family Medicine
DX: S46.001A Unspecified injury of muscle(s) and tendon(s) of the rotator cuff of right shoulder, initial encounter (principal); S53.402A Unspecified sprain of left elbow, initial encounter; T14.90XA Injury, unspecified, initial encounter; Y93.72 Activity, wrestling; E78.2 Mixed hyperlipidemia; F17.210 Nicotine dependence, cigarettes, uncomplicated
CPT/HCPCS: 73030; 73080; 73200; 99284; A9270

== ENCOUNTER 2025-03-22 12:30 | Outpatient (RCR) | payer OTHER, SELFPAY ==
--- NOTE | 2025-03-08 16:49 | OPREHPOC ---
Outpatient Therapy Plan of Care This is a Multidisciplinary Plan of Care that may contain components documented by all disciplines (PT, OT, and ST.) PT Problem 1 PT Problem #1 Knowledge Deficit PT Goal 1 Goal / Goal Update Patient will verbalize understanding of prescribed HEP, including purpose and frequency, with 100% accuracy as demonstrated during session review by their 3rd PT appointment. Target Visit 3 PT Problem 2 PT Problem #2 Pain PT Goal 1 Goal / Goal Update Patient will report </= 3/10 pain with forearm flexion/curl (neutral wrist for brachioradialis bias) of 25#. Target Visit 12 PT Problem 3 PT Problem #3 Impaired Functional Mobility PT Goal 1 Goal / Goal Update Patient will reach with RUE behind his back to take wallet from back pocket with </= 2/10 pain. PT Problem 4 PT Problem #4 Pain PT Goal 1 Goal / Goal Update Patient will overhead press 50# bilaterally (total = 100#) 6x in a row with </= 3/10 pain.
--- NOTE | 2025-03-08 16:49 | PTOPEVAL1 ---
Assessment and note entered by Nolvia Ceja, PT Evaluation Information Assessment Status Evaluation ICD-10 Condition Codes (PT) Pain in right shoulder M25.511,Pain in right elbow M25.521,Pain in left elbow M25.522 Subjective Information Patient presents with report of bilateral elbow pain and R shoulder pain. Elbow pain is exacerbated by flexion activities, and he also has stiffness when arm has been fully extended for a prolonged period. States that his R shoulder dislocated in January (during [employer] match) and he was in a sling for awhile. States that the R shoulder mobility is 70-80% of normal. Regarding the elbows, he states that the whole forearm is achy bilaterally. Occasionally has had some shoulder pain on R side that traveled into the forearm and hand, rarely has N/T. Is righthanded. Exercise and activities include Jiu Jitsu, weight lifting. Patient works out 2-3x/day. First noticed the elbow pain rope climbing about a year ago. Suspects climber's (golfer's) elbow. Additionally, pt had a RLE thrombectomy last year, all clots were removed. States that when walking on a soft surface and wearing snow boots, often has N/T and pain in toes 4 and 5 on the R side. He ordered some wider toe-box boots and will see if those improve this. Would like to be able to press 50lbs in each hand over head. Reported Pain Level Pain Score 2,7: Self Report Assessment PT Clinical Summary Patient is a 55 y/o male presenting to physical therapy with complaint of bilateral elbow pain and R shoulder pain. Elbow pain began ~1 year ago when rope-climbing. Shoulder pain was onset a few months ago following a dislocation. Patient demonstrates pain, decreased mobility, and decreased flexibility that limit their ability to perform activities of daily living and functional movements. Assessment finds his symptoms are consistent with medial epicondylitis bilaterally. Shoulder pain in consistent with the trauma of a dislocation and subsequent immobilization. He is good candidate for skilled physical therapy to improve the deficits listed above and return to PLOF. Plan of Care Interventions Electrical Stimulation,Manual Therapy,Neuro Re- education,Patient/Caregiver Education,Therapeutic Activities,Therapeutic Exercise PT Services Indicated Yes Treatment Frequency and 2x/week for 6 weeks Duration These treatments will address the objective and functional deficits as defined above. The patient will be advanced safely and appropriately in order for the patient to progress towards his/her prior level of function. Additional exercises will be introduced and as well as a comprehensive home exercise program upon discharge, if needed, ?to ensure carryover of functional gains achieved in the clinic. This treatment plan has been reviewed and agreement upon by the patient.
--- NOTE | 2025-03-25 16:24 | PTOPDC ---
Assessment and note entered by Nolvia Ceja, PT Evaluation Information Assessment Status Discharge - Pt Not Present ICD-10 Condition Codes (PT) Pain in right shoulder M25.511,Pain in right elbow M25.521,Pain in left elbow M25.522 Subjective Information Patient presents with report of bilateral elbow pain and R shoulder pain. Elbow pain is exacerbated by flexion activities, and he also has stiffness when arm has been fully extended for a prolonged period. States that his R shoulder dislocated in January (during [employer] match) and he was in a sling for awhile. States that the R shoulder mobility is 70-80% of normal. Regarding the elbows, he states that the whole forearm is achy bilaterally. Occasionally has had some shoulder pain on R side that traveled into the forearm and hand, rarely has N/T. Is righthanded. Exercise and activities include [employer], weight lifting. Patient works out 2-3x/day. First noticed the elbow pain rope climbing about a year ago. Suspects climber's (golfer's) elbow. Additionally, pt had a RLE thrombectomy last year, all clots were removed. States that when walking on a soft surface and wearing snow boots, often has N/T and pain in toes 4 and 5 on the R side. He ordered some wider toe-box boots and will see if those improve this. Would like to be able to press 50lbs in each hand over head. Assessment PT Clinical Summary Patient called to report he is going to pursue therapy at the [facility] where there will be no cost to him. Reports he was happy with his care here. Discharge from PT at this time. Plan of Care PT Services Indicated Yes
== END 2025-03-28 08:18 | disposition home or self-care (01) ==
LOC: ANHGOSHPT 12:30
PROVIDERS: PCP Family Medicine; Visit Provider Orthopaedic Surgery
DX: M19.021 Primary osteoarthritis, right elbow (principal); M19.022 Primary osteoarthritis, left elbow; S43.004A Unspecified dislocation of right shoulder joint, initial encounter
CPT/HCPCS: 97110; 97112; 97140; 97161

== ENCOUNTER 2025-03-23 09:11 | Outpatient (CLI) | payer OTHER, SELFPAY ==
--- NOTE | ~2025-03-23 | MR_ITS ---
EXAMINATION: MRI right shoulder without contrast: DATE: 03/23/2025 INDICATION: Anterior right shoulder pain with diminished range of motion. Sustained pulling injury in January. No history of shoulder surgery. TECHNIQUE: Oblique coronal, oblique sagittal and axial images of the right shoulder were obtained following standard protocol. COMPARISON: Right shoulder x-ray dated 02/06/2025. FINDINGS: No acute bony lesions at the right shoulder. Supraspinatus tendinitis is noted with evidence of partial thickness tear on the bursal side and on the articular side. Suspicion of small full-thickness tear of the supraspinatus is noted. Supraspinatus tendon is moderately atrophic. Significant degenerative changes of AC joint is impinging on the subacromion space. Partial disruption of acromioclavicular ligament is suggested. There is no evidence of dislocated joint. This is suggestive of grade 1 separation of the AC joint. Effusion is noted in the subacromion bursa. No evidence of glenoid labral tear. Long head of biceps tendon is intact. IMPRESSION: 1. No acute bony lesions at the right shoulder. 2. Significant supraspinatus tendinitis is noted with partial-thickness tear on both sides of the supraspinatus tendon and a small full-thickness tear. Mild atrophy of the tendon. 3. Significant degenerative changes of AC joint is noted. Suspicion of grade 1 separation of AC joint with partial disruption of the acromioclavicular ligaments. Weightbearing views of the AC joint by radiograph is recommended for further evaluation of the AC joint. Reviewed, dictated and finalized at location T. AULIC BILLET MAKER IMPRESSION: 1. No acute bony lesions at the right shoulder. 2. Significant supraspinatus tendinitis is noted with partial-thickness tear on both sides of the supraspinatus tendon and a small full-thickness tear. Mild a trophy of the tendon. 3. Significant degenerative changes of AC joint is noted. Suspicion of grade 1 separation of AC joint with partial disruption of the acromioclavicular ligamen ts. Weightbearing views of the AC joint by radiograph is recommended for furthe r evaluation of the AC joint.
== END 2025-03-23 09:12 | disposition home or self-care (01) ==
LOC: MICIMG 09:13
PROVIDERS: PCP Family Medicine; Visit Provider Orthopaedic Surgery
DX: S46.811A Strain of other muscles, fascia and tendons at shoulder and upper arm level, right arm, initial encounter (principal); X58.XXXA Exposure to other specified factors, initial encounter; M75.81 Other shoulder lesions, right shoulder; M75.111 Incomplete rotator cuff tear or rupture of right shoulder, not specified as traumatic; M19.011 Primary osteoarthritis, right shoulder; M62.58 Muscle wasting and atrophy, not elsewhere classified, other site; M62.511 Muscle wasting and atrophy, not elsewhere classified, right shoulder
CPT/HCPCS: 73221